=== PATIENT | female | born 1935 | race Caucasian/White ===

== ENCOUNTER → 2017-03-18 | Outpatient (CLI) | payer BC ==
[~2017-03-18] MED LIST: ALBU1AER9 INH; ASCO10003 PO; CALCTAB5 PO; CODCAP4 PO; LEVO100T7 PO; PRD/1 PO
[2017-03-18 11:03] LABS: BASO % 0.5 %; BASO ABS # 0.04 K/uL (0-0.2); COMPLETE YES; EOS % 2.3 %; HEMATOCRIT 45.7 % (37-47); IG% 0.2 %; LYMPH ABS # 2.14 K/uL (1.2-3.4); MEAN CELL VOLUME 93.6 fL (80-100); MEAN CORPUSCULAR HEMOGLOBIN 30.3 pg (25-34); MEAN CORPUSCULAR HGB CONC 32.4 g/dl (32-36); MEAN PLATELET VOLUME 11.8 fL (7.4-10.4); PLATELET COUNT 311 K/uL (130-400); RED BLOOD COUNT 4.88 M/uL (4.2-5.4); WHITE BLOOD COUNT 8.55 K/uL (4.8-10.8)
[2017-03-18 11:22] LABS: ESTIMATED AVERAGE GLUCOSE 117 mg/dl; HA1C FLAG Normal (Normal)
[2017-03-18 11:27] LABS: C-REACTIVE PROTEIN 0.33 mg/dl (0-0.29); CHOLESTEROL/HDL RATIO 2.7; THYROID STIMULATING HORMONE 0.786 uIu/ml (0.300-4.500)
--- NOTE | 2017-03-24 11:36 | CODING QUERY MEDICAL NECESSITY ---
SUPPORTING DIAGNOSIS NEEDED Dr. Vines, A supporting diagnosis is required for the test/procedure performed on this patient in order for us to be reimbursed by the patient's insurance. Please provide a supporting diagnosis for the following test/procedure listed below next to the test name along with your signature. *If there is no additional diagnosis for this patient that would support the following test/procedure please document that below next to the test/procedure. Test(s)/Procedure(s) that require a supporting diagnosis: * [id number] GLYCATED HEMOGLOBIN DIAGNOSIS: DATE OF SERVICE: 03/18/17 Provider Signature: Date: Thank you [facility] Information Management Once completed, please kindly fax back to [phone] For questions please call [phone]
== END | disposition home or self-care (01) ==
LOC: C.LABBC 08:34
PROVIDERS: ATTEND Internal Medicine
DX: R73.03 Prediabetes (principal); D72.829 Elevated white blood cell count, unspecified; M35.3 Polymyalgia rheumatica; E03.9 Hypothyroidism, unspecified; E55.9 Vitamin D deficiency, unspecified

== ENCOUNTER → 2017-05-13 | Outpatient (CLI) | payer BC ==
[~2017-05-13] MED LIST changes: +CODCAP PO; -CODCAP4 PO
== END | disposition home or self-care (01) ==
LOC: C.LABBC 09:14
PROVIDERS: ATTEND Physician Assistant
DX: M25.50 Pain in unspecified joint (principal)

== ENCOUNTER → 2017-07-21 | Outpatient (CLI) | payer BC ==
--- NOTE | 2017-07-21 16:08 | MAMMOGRAPHY REPORT ---
BILATERAL DIGITAL SCREENING MAMMOGRAM WITH CAD: 07/21/2017 CLINICAL HISTORY: Routine screening. Patient has no complaints. TECHNIQUE: Bilateral CC and MLO views were obtained. Current study was also evaluated with a Compute r Aided Detection (CAD) system. COMPARISON: Comparison is made to exams dated: 07/17/2016 mammogram, 07/14/2015 mammogram, 07/13/2014 m ammogram, 07/12/2013 mammogram, 07/09/2012 mammogram, and 07/12/2011 mammogram - [facility] er. BREAST COMPOSITION: The tissue of both breasts is heterogeneously dense, which may obscure small mas ses. FINDINGS: There are minimal vascular calcifications and scattered benign-appearing rim and round calc ifications in the breasts. No suspicious mass, architectural distortion or cluster of suspicious aminta rocalcifications is seen. IMPRESSION: ACR BI-RADS CATEGORY 1: NEGATIVE There is no mammographic evidence of malignancy. A 1 year screening mammogram is recommended. The pa tient will receive written notification of the results. Approximately 10% of breast cancers are not detected with mammography. A negative mammographic report should not delay biopsy if a clinically suggestive mass is present. Corazon Mata M.D. ay/:07/21/2017 14:42:05 Hand Weaver: Yazmin COLLADO(R)(Wilfredo)(BD), [facility] letter sent: Normal 1/2 BI-RADS Code: ACR BI-RADS Category 1: Negative
== END | disposition home or self-care (01) ==
LOC: C.MAMM 14:07
PROVIDERS: ATTEND Internal Medicine
DX: Z12.31 Encounter for screening mammogram for malignant neoplasm of breast (principal)

== ENCOUNTER → 2017-09-01 | Outpatient (CLI) | payer BC ==
[~2017-09-01] MED LIST changes: -CODCAP PO; +CODCAP4 PO
[2017-09-01 13:51] LABS: ESTIMATED AVERAGE GLUCOSE 114 mg/dl; HA1C FLAG Normal (Normal)
[2017-09-01 14:37] LABS: ALT/SGPT 18 U/L (12-78); AST/SGOT 16 U/L (15-37); BLOOD UREA NITROGEN 20 mg/dl (7-18); BUN/CREATININE RATIO 17.6 (10-20); C-REACTIVE PROTEIN 0.36 mg/dl (0-0.29); CALCIUM 9.1 mg/dl (8.5-10.1); CARBON DIOXIDE 30 mmol/L (21-32); CHLORIDE 106 mmol/L (98-107); CHOLESTEROL 194 mg/dl (0-200); CREATININE 1.13 mg/dl (0.60-1.20); GLUCOSE 101 mg/dl (70-99); POTASSIUM 3.9 mmol/L (3.5-5.1); SODIUM 141 mmol/L (136-145); TRIGLYCERIDES 102 mg/dl (0-150); VERY LOW DENSITY LIPOPROT CALC 20 mg/dl
[2017-09-01 14:50] LABS: CHOLESTEROL/HDL RATIO 2.6; HDL CHOLESTEROL 75 mg/dl; LDL CHOLESTEROL CALCULATED 99 mg/dl
== END | disposition home or self-care (01) ==
LOC: C.LABBC 09:26
PROVIDERS: ATTEND Internal Medicine
DX: R73.03 Prediabetes (principal); E03.9 Hypothyroidism, unspecified; M35.3 Polymyalgia rheumatica

== ENCOUNTER → 2017-10-21 | Outpatient (CLI) | payer BC ==
[2017-10-21 13:50] LABS: BLOOD UREA NITROGEN 25 mg/dl (7-18); CREATININE 1.19 mg/dl (0.60-1.20)
== END | disposition home or self-care (01) ==
LOC: C.LABBC 11:18
PROVIDERS: ATTEND Psychiatry & Neurology Neurology
DX: R73.03 Prediabetes (principal); N28.9 Disorder of kidney and ureter, unspecified

== ENCOUNTER → 2017-11-07 | Outpatient (CLI) | payer BC ==
[~2017-11-07] MED LIST changes: +ASPI81TA28 PO; +GADAVIST IV PRN; +LISI-729 PO; +SULF800T23 PO
--- NOTE | 2017-11-07 10:51 | DIAGNOSTIC IMAGING REPORT ---
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 Tinnitus. TECHNIQUE: Multiaxial MRI acquisition with multi planar postcontrast enhanced images of the internal auditory canals and brain COMPARISON STUDY: 02/18/2014 FINDINGS: Diffusion-weighted images are considered negative for an acute ischemic event. Sagittal images demonstrate low-lying cerebellar tonsils although well-defined acute malformation is not felt to be present. Multiple foci of increased signal within the periventricular deep white matter regions consistent with chronic small vessel change of aging. Slight ventricular prominence combined with cerebral atrophy with all findings related to the ventricular system presumably compensatory The internal auditory canals are identical as compared to the prior study. 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 The AICA loop is unchanged within the right internal auditory canal. No abnormal postcontrast enhancement of the brain or internal auditory canal structures. Signal characteristics of the 7th and 8th nerves remain unremarkable. IMPRESSION: 1. Identical study compared to the prior exam. 2. Vascular loop interposition,AICA, within the right internal auditory canal as discussed above. This is unchanged from the prior exam. 3. No abnormal postcontrast enhancement of the 7th or 8th nerves. 4. Low-lying cerebellar tonsils. Mild cerebral atrophy. Mild chronic small vessel change all identical to the prior exam. 5. No new or interval process compared to the prior study. The above report was generated using voice recognition software. It may contain grammatical, syntax or spelling errors. Electronically signed by: Arnie Zimmerman M.D. 11/07/2017 10:49 AM Dictated Date/Time: 11/07/2017 10:40 AM
== END | disposition home or self-care (01) ==
LOC: C.MRIBC 08:40
PROVIDERS: ATTEND Psychiatry & Neurology Neurology
DX: H93.19 Tinnitus, unspecified ear (principal); G51.0 Bell's palsy

== ENCOUNTER → 2017-12-23 | Outpatient (CLI) | payer BC ==
[~2017-12-23] MED LIST changes: -ASPI81TA28 PO; -GADAVIST IV PRN; -LISI-729 PO; -SULF800T23 PO
[2017-12-23 15:54] LABS: BLOOD UREA NITROGEN 24 mg/dl (7-18); CALCIUM 9.7 mg/dl (8.5-10.1); CARBON DIOXIDE 27 mmol/L (21-32); CREATININE 1.19 mg/dl (0.60-1.20); GLUCOSE 99 mg/dl (70-99); POTASSIUM 3.9 mmol/L (3.5-5.1); SODIUM 139 mmol/L (136-145)
== END | disposition home or self-care (01) ==
LOC: C.LABBC 11:09
PROVIDERS: ATTEND Internal Medicine
DX: E03.9 Hypothyroidism, unspecified (principal); I10 Essential (primary) hypertension

== ENCOUNTER → 2018-03-04 | Outpatient (CLI) | payer BC ==
[2018-03-04 11:13] LABS: BASO % 0.6 %; BASO ABS # 0.04 K/uL (0-0.2); EOS ABS # 0.28 K/uL (0-0.5); HEMATOCRIT 42.8 % (37-47); HEMOGLOBIN 13.7 g/dL (12.0-16.0); IG# 0.01 K/uL (0.00-0.02); LYMPH % 22.2 %; LYMPH ABS # 1.57 K/uL (1.2-3.4); MEAN CELL VOLUME 93.7 fL (80-100); MEAN PLATELET VOLUME 11.2 fL (7.4-10.4); MONO % 9.6 %; MONO ABS # 0.68 K/uL (0.11-0.59); NEUT % 63.5 %; NEUT ABS # 4.48 K/uL (1.4-6.5); PLATELET COUNT 315 K/uL (130-400); RED CELL DISTRIBUTION WIDTH CV 14.9 % (11.5-14.5); RED CELL DISTRIBUTION WIDTH SD 50.5 fL (36.4-46.3); WHITE BLOOD COUNT 7.06 K/uL (4.8-10.8)
[2018-03-04 11:27] LABS: BLOOD UREA NITROGEN 22 mg/dl (7-18); CARBON DIOXIDE 30 mmol/L (21-32); CREATININE 1.29 mg/dl (0.60-1.20); GLUCOSE 96 mg/dl (70-99); POTASSIUM 4.2 mmol/L (3.5-5.1); SODIUM 139 mmol/L (136-145)
[2018-03-04 11:37] LABS: CHOLESTEROL 190 mg/dl (0-200); LDL CHOLESTEROL CALCULATED 107 mg/dl
== END | disposition home or self-care (01) ==
LOC: C.LABBC 08:32
PROVIDERS: ATTEND Internal Medicine
DX: E03.9 Hypothyroidism, unspecified (principal); D72.829 Elevated white blood cell count, unspecified; M35.3 Polymyalgia rheumatica; N28.9 Disorder of kidney and ureter, unspecified

== ENCOUNTER → 2018-06-18 | Outpatient (CLI) | payer BC ==
[~2018-06-18] MED LIST changes: +ASPI81TA28 PO; +LISI-729 PO
[2018-06-18 13:38] LABS: BLOOD UREA NITROGEN 29 mg/dl (7-18); CALCIUM 9.2 mg/dl (8.5-10.1); CARBON DIOXIDE 27 mmol/L (21-32); CREATININE 1.26 mg/dl (0.60-1.20); GLUCOSE 93 mg/dl (70-99); POTASSIUM 3.9 mmol/L (3.5-5.1); SODIUM 139 mmol/L (136-145)
== END | disposition home or self-care (01) ==
LOC: C.LABBC 09:29
PROVIDERS: ATTEND Internal Medicine
DX: M35.3 Polymyalgia rheumatica (principal)

== ENCOUNTER 2022-02-05 14:45 | Inpatient (IN) ==
[2022-02-05] MEDS ORDERED: ONDANSETRON INJ 2 MG/ML 2 ML VIAL IV STA (15:07)
[2022-02-05] MEDS ORDERED: ACETAMINOPHEN 1000 MG/100 ML IV IV STA (15:07)
[2022-02-05] MEDS ORDERED: DIPHTHERIA/TETANUS/PERTUSSIS 0.5 ML SYR/VIAL IM ONE (15:07)
[2022-02-05] MEDS ORDERED: SODIUM CHLORIDE 0.9% 500 ML IV SCH (15:15)
[2022-02-05] MEDS ORDERED: LIDO/EPINEPHRINE/SOD BICARB 20 ML VIAL INFIL ONE (15:17)
[2022-02-05 15:23] LABS: Basophils # (auto) 0.04 K/uL (0-0.2); Basophils % (auto) 0.2 %; Eosinophils # (auto) 0.06 K/uL (0-0.5); Eosinophils % (auto) 0.3 %; Hematocrit (blood only) 39.7 % (37-47); Hemoglobin 12.9 g/dL (12.0-16.0); Immature Granulocytes # (auto) 0.16 K/uL (0.00-0.02); Immature Granulocytes % (auto) 0.9 %; Lymphocytes % (auto) 5.1 %; Mean Corpuscular Hemoglobin 30.1 pg (25-34); Mean Corpuscular Hgb Conc 32.5 g/dL (32-36); Mean Corpuscular Volume 92.8 fL (80-100); Mean Platelet Volume 10.9 fL (7.4-10.4); Monocytes # (auto) 1.26 K/uL (0.11-0.59); Monocytes % (auto) 7.2 %; Neutrophils # (auto) 15.14 K/uL (1.4-6.5); Neutrophils % (auto) 86.3 %; Platelet Count 372 K/uL (130-400); RDW Coefficient of Variation 14.6 % (11.5-14.5); RDW Standard Deviation 49.4 fL (36.4-46.3); Red Blood Count 4.28 M/uL (4.2-5.4); White Blood Count 17.56 K/uL (4.8-10.8)
--- NOTE | 2022-02-05 15:24 | Emergency Department Note ---
Impression & Plan Fall, Laceration of scalp, Acute head trauma, Closed fracture of right elbow, Closed pelvic fracture, Acute UTI ED Provider Note NAME: CHASE GRIJALVA AGE: 86 SEX: F : 1935 ARRIVES VIA: Ambulance INFORMANT: [Patient][nurseing, ems] ED PROVIDER(S): [Rocky López MD] CHIEF COMPLAINT: Fall HISTORY OF PRESENT ILLNESS: Patient is an 86-year-old female who was having a normal day today. She has been in baseline health. She was apparently walking and, was then suddenly found by her on the ground. She had fallen. She had a laceration to her right scalp, some right elbow pain, some right hip pain. She was brought for evaluation. The patient is amnestic of what exactly happened. Patient denies any real headache or neck pain. No chest pain or shortness of breath. No abdominal pain. She complains of some moderate right elbow and right hip discomfort. She feels worse in the elbow and hip if she tries to move. The patient is uncertain of her last tetanus booster, she thinks it has been sometime though. The patient does not take any blood thinning agents other than some aspirin. She has no history of seizures. REVIEW OF SYSTEMS: See HPI for pertinent positives and negatives. A total of ten systems were rev iewed and were otherwise negative. PMHx/PSHx: See Below SOCIAL HISTORY: See Below. PHYSICAL EXAM: GENERAL: Patient is in no acute distress. HEENT: There appears to be a laceration to the right parietal scalp although, there is dried, matted hair covering the wound and it at this point cannot be visualized. There is no obvious facial trauma. Mucous membranes appear moist. Once the area was cleansed, there was a 2 mm laceration to the right parietal scalp with a surrounding abrasion. There was some minimal oozing of blood. NECK: No stridor, no adenopathy, stiff collar in place, trachea is midline. LUNGS: Clear to auscultation bilaterally, no wheeze, no rhonchi, breath sounds equal. Chest: Nontender ribs and chest wall. HEART: Without murmurs gallops or rubs, regular rate and rhythm. ABDOMEN: Soft, nontender, bowel sounds positive, no hernias, no peritonitis. EXTREMITIES: No cyanosis. The patient does have pain to palpate the right lateral hip and to move the right hip, there is no gross deformity to the right lower extremity. The right knee and right ankle are nontender, the left lower extremity is nontender. The patient has swelling around the area of the right elbow. It is quite painful to palpate or move the elbow. There is a strong distal right radial pulse and her radial ulnar and median nerve are intact distally on the right. The shoulder on the right is nontender. NEUROLOGIC: Oriented x 3, no acute motor or sensory deficits, no focal weakness. SKIN: No rash, no jaundice, no diaphoresis. Pelvis: Stable with rock. DIFFERENTIAL DIAGNOSIS: Infection, TIA, dehydration, metabolic abnormality, hypo/hyperglycemia, electrolyte disturbance, anemia, hypoxia, cardiac sources, intracerebral event, stroke, TIA, dysrhythmia, seizure, intracranial bleeding, skull fracture, cervical spine fracture, pelvis or hip fracture, as well as other pathologies. EMERGENCY DEPARTMENT COURSE/PROCEDURES: ECG: Indication was fall. The ECG shows a normal sinus rhythm with significant baseline artifact. The rate is 67. There is LVH present. There is no obvious ST elevation, no PVCs. The QTc is 448. Continuous Cardiac Monitoring: An order was placed for continuous cardiac monitoring. The monitor shows a rate of 72 with normal sinus rhythm. Laceration repair: This procedure was performed by me. The wound was prepped and draped in sterile fashion. The area was anesthetized with lidocaine and epinephrine. Using saline it was cleansed thoroughly. No foreign debris was noted. The wound was visualized and explored to its deepest regions. There was no nervous, deep structure, or tendon involvement. Using sterile technique the wound was closed. There were no complications. The area was then dressed. The patient tolerated the procedure well. Number of miranda: 2 Splint Care: After the ortho glass splint was placed by the field professional, I examined the splint and confirmed proper application/placement/position. Neurovascular status was intact both proximal and distal to the splinted area. Critical Care Note: I have personally spent 52 minutes of critical care time in the direct management of this patient. This includes bedside care, interpretation of diagnostic studies, and testing, discussion with consultants, patient, and family members, and other required patient management activities. This 52 minutes is in excess of all separately billable procedures. MEDICAL DECISION MAKING: There is a moderate leukocytosis which would be consistent with infection or possibly the stress of her fall. There is a normal hemoglobin and platelet count. No coagulopathy. There is a mild elevation to the creatinine, no electrolyte abnormality that requires emergent correction. No concerning liver enzyme elevation. The patient appears to be in a euthyroid state. ECG shows a normal sinus rhythm, no obvious acute ischemia. Cardiac enzyme testing x1 is not consistent with acute cardiac injury. Urinalysis is consistent with infection. Covid testing is negative. Brain CT shows no acute bleed or mass- effect, no skull fracture. C-spine CT shows no acute fracture. Right elbow film shows an olecranon fracture. Right hip and pelvis films show a fracture of the right superior and inferior pubic ramus. CT with IV contrast of the pelvis shows the rami fractures, no extravasation of contrast noted. No right hip fracture seen. The patient's right scalp laceration was cleansed. The laceration was stapled closed. No further bleeding. The patient was placed in a right elbow posterior splint to stabilize the fracture. I did speak with orthopedics. The patient is being hospitalized. They will see the patient in the morning and talk about how to care for the elbow fracture and the pelvic fracture. The patient received IV Tylenol for pain, she was given IV Zofran for nausea. I did order for some IV labetalol to help control her blood pressure. She was given an Adacel booster IM. She was given IV ceftriaxone for her UTI. I spoke with the patient and her . I spoke with case management. The on-call hospitalist has been consulted. Past Med/Surg History Medical History Lawrence's palsy ~2003 Hx of basal cell carcinoma Hx of bronchiectasis follows with Pulmonary [facility] Hypothyroidism Osteoarthritis Polymyalgia rheumatica Pre-diabetes monitors Renal insufficiency PCP monitoring Solitary pulmonary nodule Surgical History Hx of skin graft S/P appendectomy S/P blepharoplasty Left S/P cataract surgery bilateral S/P cholecystectomy S/P colonoscopy S/P parathyroidectomy r/t hypercalcemia S/P right knee arthroscopy Family History Mother Myocardial infarction Hypertension Family/Other Thyroid disorder Brother Thyroid disorder Sister Thyroid disorder Other Diabetes Heart disease No family history of adverse response to anesthesia Denies family history of Ovarian cancer Prostate cancer Breast cancer Colorectal cancer Social History Smoking Status: Never smoker Second Hand Exposure: No; Hx Alcohol Use: Yes Alcohol type: wine Alcohol Intake Frequency Comment: SOCIALLY Hx Substance Use: No Preferred Language: Israeli Communication Ability: Effective Visual Impairment: No Limitations Hearing Ability: Normal Valve Inserter Required: No Beliefs That Will Affect Care: None marital status: Current Living Situation: Spouse current occupational status: retired How many Children do You have: 2 How many Children do You have Comment: 1 boy 1 girl Feels Safe at Home: Yes Childhood Exposure to Second-Hand Smoke: No during the past year weight has: remained stable Dental Care, Regularly: Yes Physical Activity Frequency: Daily Seatbelt Use: always Sunscreen Use: Yes Assistive Devices: Glasses Allergies Allergies Allergy/AdvReac Type Severity Reaction Status Date / Time fexofenadine AdvReac Unknown Diarrhea Verified 02/05/22 17:36 Home Meds Home Medications Medication Instructions Recorded Confirmed aspirin 81 mg tablet,delayed 81 mg PO QAM 07/01/18 02/05/22 release calcium carbonate 600 mg-vitamin 1 tab PO QAM tab 07/01/18 02/05/22 D3 20 mcg (800 unit) chewable tablet (Caltrate 600 plus D) cod liver oil 1 cap PO QAM 07/01/18 02/05/22 cholecalciferol (vitamin D3) 25 25 mcg PO QAM 07/16/21 02/05/22 mcg (1,000 unit) tablet (Vitamin D3) cranberry extract 500 mg tablet 500 mg PO QAM 07/16/21 02/05/22 cyanocobalamin (vitamin B-12) 1,000 mcg PO QAM 07/16/21 02/05/22 1,000 mcg tablet,extended release (Vitamin B-12 ER) magnesium 250 mg tablet 250 mg PO BID 07/16/21 02/05/22 turmeric root extract 500 mg 500 mg PO QAM 07/16/21 02/05/22 capsule vitamin B complex 1 tab PO [id number] 07/16/21 02/05/22 prednisone 1 mg tablet 2 mg PO DAILY tab 01/30/22 02/05/22 Previous Rx's Medication Instructions Recorded albuterol sulfate 90 mcg/actuation 1 - 2 puff INH Q6H PRN #8.5 gm 08/01/21 aerosol inhaler (ProAir HFA) levothyroxine 100 mcg tablet 100 mcg PO QAM #90 tab 12/04/21 (Synthroid) lisinopril 2.5 mg tablet 1.25 mg PO BID #90 tab 12/04/21 solifenacin 10 mg tablet (Vesicare) 10 mg PO DAILY #30 tab 12/11/21 Results & Data (ED) Vital Signs Vital Signs - 24 hr 02/05/22 14:55 02/05/22 15:00 02/05/22 15:08 Temperature 36.6 C Temperature Source Oral Pulse Rate 72 68 73 Pulse Rhythm Regular Pulse Strength Normal Respiratory Rate 20 19 22 Respiratory Effort / Characteristics Non-Labored Respiratory Depth Normal Respiratory Pattern Regular Blood Pressure 219/69 H Blood Pressure Mean 119 Blood Pressure Position Sitting Pulse Oximetry 95 94 Oxygen Delivery Method Room Air Room Air Sepsis Recent Fever Within 48 Hours No Sepsis New/Unexplained Change in Mental Status No Sepsis Action Taken by Nursing No Action Required 02/05/22 15:15 02/05/22 15:30 02/05/22 16:10 Temperature Temperature Source Pulse Rate 64 64 83 Pulse Rhythm Pulse Strength Respiratory Rate 20 19 22 Respiratory Effort / Characteristics Respiratory Depth Respiratory Pattern Blood Pressure Blood Pressure Mean Blood Pressure Position Pulse Oximetry 93 94 97 Oxygen Delivery Method Room Air Room Air Room Air Sepsis Recent Fever Within 48 Hours Sepsis New/Unexplained Change in Mental Status Sepsis Action Taken by Nursing 02/05/22 16:15 02/05/22 16:30 02/05/22 17:02 Temperature Temperature Source Pulse Rate 74 69 Pulse Rhythm Pulse Strength Respiratory Rate 20 24 Respiratory Effort / Characteristics Respiratory Depth Respiratory Pattern Blood Pressure Blood Pressure Mean Blood Pressure Position Pulse Oximetry 98 Oxygen Delivery Method Room Air Sepsis Recent Fever Within 48 Hours Sepsis New/Unexplained Change in Mental Status Sepsis Action Taken by Nursing 02/05/22 17:04 02/05/22 17:15 02/05/22 17:30 Temperature Temperature Source Pulse Rate 74 74 70 Pulse Rhythm Pulse Strength Respiratory Rate 21 17 16 Respiratory Effort / Characteristics Respiratory Depth Respiratory Pattern Blood Pressure 176/83 H Blood Pressure Mean 114 Blood Pressure Position Pulse Oximetry 97 Oxygen Delivery Method Room Air Sepsis Recent Fever Within 48 Hours Sepsis New/Unexplained Change in Mental Status Sepsis Action Taken by Nursing 02/05/22 17:45 02/05/22 18:00 02/05/22 18:15 Temperature Temperature Source Pulse Rate 70 71 70 Pulse Rhythm Pulse Strength Respiratory Rate 19 19 16 Respiratory Effort / Characteristics Respiratory Depth Respiratory Pattern Blood Pressure Blood Pressure Mean Blood Pressure Position Pulse Oximetry 98 Oxygen Delivery Method Room Air Sepsis Recent Fever Within 48 Hours Sepsis New/Unexplained Change in Mental Status Sepsis Action Taken by Nursing 02/05/22 18:30 02/05/22 18:46 Temperature Temperature Source Pulse Rate 77 72 Pulse Rhythm Pulse Strength Respiratory Rate 22 Respiratory Effort / Characteristics Respiratory Depth Respiratory Pattern Blood Pressure 183/59 H Blood Pressure Mean 100 Blood Pressure Position Pulse Oximetry Oxygen Delivery Method Sepsis Recent Fever Within 48 Hours Sepsis New/Unexplained Change in Mental Status Sepsis Action Taken by [facility] Medications Current Medication List: was personally reviewed by me Laboratory Data Attestation: I reviewed the patient's lab results. Result diagrams: 02/05/22 15:14 02/05/22 15:14 Lab Results 02/05/22 02/05/22 02/05/22 Range/Units 15:14 15:14 15:14 WBC 17.56 H (4.8-10.8) K/uL RBC 4.28 (4.2-5.4) M/uL Hgb 12.9 (12.0-16.0) g/dL Hct 39.7 (37-47) % MCV 92.8 (80-100) fL MCH 30.1 (25-34) pg MCHC 32.5 (32-36) g/dL RDW Std Deviation 49.4 H (36.4-46.3) fL RDW Coeff of Fawad 14.6 H (11.5-14.5) % Plt Count 372 (130-400) K/uL MPV 10.9 H (7.4-10.4) fL Immature Gran % (Auto) 0.9 % Neut % (Auto) 86.3 % Lymph % (Auto) 5.1 % [place] % (Auto) 7.2 % Eos % (Auto) 0.3 % Baso % (Auto) 0.2 % Neut # (Auto) 15.14 H (1.4-6.5) K/uL Lymph # (Auto) 0.90 L (1.2-3.4) K/uL [place] # (Auto) 1.26 H (0.11-0.59) K/uL Eos # (Auto) 0.06 (0-0.5) K/uL Baso # (Auto) 0.04 (0-0.2) K/uL Immature Gran # (Auto) 0.16 H (0.00-0.02) K/uL PT 10.5 (9.0-12.0) Seconds INR 1.0 (0.9-1.1) APTT 22.2 (21.0-31.0) Seconds PTT Ratio 0.8 Sodium 138 (136-145) mmol/L Potassium 4.0 (3.5-5.1) mmol/L Chloride 102 (98-107) mmol/L Carbon Dioxide 29 (21-32) mmol/L Anion Gap 7 (3-11) BUN 25 H (6-23) mg/dl Creatinine 1.42 H (0.6-1.2) mg/dl Est Cr Clr Drug Dosing 25.0 ml/min Est GFR ( Amer) 38.9 ml/min Est GFR (Non-Af Amer) 33.6 ml/min BUN/Creatinine Ratio 17.6 (10-20) Glucose 135 H (70-99(Fasting)) mg/dl Calcium 10.4 H (8.5-10.1) mg/dl Magnesium 2.2 (1.7-2.4) mg/dl Total Bilirubin 0.4 (0.2-1.0) mg/dl AST 22 (13-39) U/L ALT 15 (7-52) U/L Alkaline Phosphatase 61 (34-104) U/L Troponin I < 0.03 (0-0.04) ng/ml Total Protein 7.4 (6.0-8.3) gm/dl Albumin 4.3 (3.4-5.0) gm/dl Globulin 3.1 (2.5-4.0) gm/dl Albumin/Globulin Ratio 1.4 (0.9-2) TSH (0.300-4.500) uIu/ml Urine Color Urine Appearance (Clear) Urine pH (4.5-7.5) Ur Specific [place] (1.000-1.030) Urine Protein (Negative) Urine Glucose (UA) (Negative) Urine Ketones (Negative) Urine Blood (Negative) Urine Nitrite (Negative) Urine Bilirubin (Negative) Urine Urobilinogen (Negative) Ur Leukocyte Esterase (Negative) Urine WBC (Auto) (0-5) /hpf Urine RBC (Auto) (0-4) /hpf U Hyaline Cast (Auto) (0-5) /lpf U Epithel Cells (Auto) (0-5) /lpf Urine Bacteria (Auto) (Negative) SARS-CoV-2, RNA, NAAT (NEGATIVE) 02/05/22 02/05/22 02/05/22 Range/Units 15:14 17:32 Unknown WBC (4.8-10.8) K/uL RBC (4.2-5.4) M/uL Hgb (12.0-16.0) g/dL Hct (37-47) % MCV (80-100) fL MCH (25-34) pg MCHC (32-36) g/dL RDW Std Deviation (36.4-46.3) fL RDW Coeff of Fawad (11.5-14.5) % Plt Count (130-400) K/uL MPV (7.4-10.4) fL Immature Gran % (Auto) % Neut % (Auto) % Lymph % (Auto) % [place] % (Auto) % Eos % (Auto) % Baso % (Auto) % Neut # (Auto) (1.4-6.5) K/uL Lymph # (Auto) (1.2-3.4) K/uL [place] # (Auto) (0.11-0.59) K/uL Eos # (Auto) (0-0.5) K/uL Baso # (Auto) (0-0.2) K/uL Immature Gran # (Auto) (0.00-0.02) K/uL PT (9.0-12.0) Seconds INR (0.9-1.1) APTT (21.0-31.0) Seconds PTT Ratio Sodium (136-145) mmol/L Potassium (3.5-5.1) mmol/L Chloride (98-107) mmol/L Carbon Dioxide (21-32) mmol/L Anion Gap (3-11) BUN (6-23) mg/dl Creatinine (0.6-1.2) mg/dl Est Cr Clr Drug Dosing ml/min Est GFR ( Amer) ml/min Est GFR (Non-Af Amer) ml/min BUN/Creatinine Ratio (10-20) Glucose (70-99(Fasting)) mg/dl Calcium (8.5-10.1) mg/dl Magnesium (1.7-2.4) mg/dl Total Bilirubin (0.2-1.0) mg/dl AST (13-39) U/L ALT (7-52) U/L Alkaline Phosphatase (34-104) U/L Troponin I (0-0.04) ng/ml Total Protein (6.0-8.3) gm/dl Albumin (3.4-5.0) gm/dl Globulin (2.5-4.0) gm/dl Albumin/Globulin Ratio (0.9-2) TSH 1.478 (0.300-4.500) uIu/ml Urine Color Yellow Urine Appearance Cloudy A (Clear) Urine pH 7.5 (4.5-7.5) Ur Specific [place] 1.012 (1.000-1.030) Urine Protein Negative (Negative) Urine Glucose (UA) Negative (Negative) Urine Ketones Negative (Negative) Urine Blood Negative (Negative) Urine Nitrite Positive A (Negative) Urine Bilirubin Negative (Negative) Urine Urobilinogen Negative (Negative) Ur Leukocyte Esterase 2+ H (Negative) Urine WBC (Auto) >30 H (0-5) /hpf Urine RBC (Auto) 0-4 (0-4) /hpf U Hyaline Cast (Auto) 1-5 (0-5) /lpf U Epithel Cells (Auto) 0-5 (0-5) /lpf Urine Bacteria (Auto) 4+ H (Negative) SARS-CoV-2, RNA, NAAT NEGATIVE (NEGATIVE) Administered Medications Discontinued Medications Acetaminophen (Acetaminophen 1000 Mg/100 Ml Iv) 1,000 mg IV NOW STA Stop: 02/05/22 15:08 Last Admin: 02/05/22 15:29 Dose: 1,000 mg Documented by: [id number] Diphtheria/Pertussis/Tetanus Vacc (Diphtheria/Tetanus/Pertussis 0.5 Ml Syr/Vial) 0.5 ml IM .ONCE ONE Stop: 02/05/22 15:08 Last Admin: 02/05/22 15:30 Dose: 0.5 ml Documented by: [id number] Hydromorphone HCl (Hydromorphone Inj 0.5 Mg/0.5 Ml Syr) 0.5 mg IV NOW STA Stop: 02/05/22 18:52 Last Admin: 02/05/22 18:59 Dose: 0.5 mg Documented by: [id number] Sodium Chloride (Nss) 500 mls @ 999 mls/hr IV .Q31M LEROY Stop: 02/05/22 15:45 Last Infusion: 02/05/22 16:33 Dose: 0 mls/hr Documented by: [id number] Admin: 02/05/22 15:27 Dose: 999 mls/hr Documented by: [id number] Ceftriaxone Sodium (Rocephin) 1,000 mg in 50 mls @ 100 mls/hr IV NOW STA Stop: 02/05/22 17:50 Last Infusion: 02/05/22 19:41 Dose: 0 mls/hr Documented by: [id number] Admin: 02/05/22 19:01 Dose: 100 mls/hr Documented by: [id number] Ioversol (Optiray 320 100ml) 93 ml IV ONCE ONE Stop: 02/05/22 16:58 Last Admin: 02/05/22 16:58 Dose: 93 ml Documented by: [id number] Labetalol HCl (Labetalol Hcl Iv 5 Mg/Ml 20ml) 10 mg IV NOW STA Stop: 02/05/22 17:22 Last Admin: 02/05/22 18:56 Dose: Not Given Documented by: [id number] Lidocaine/Epinephrine (Lido/Epinephrine/Sod Bicarb 20 Ml Vial) 20 ml INFIL NOW ONE Stop: 02/05/22 15:18 Last Admin: 02/05/22 16:32 Dose: 20 ml Documented by: [id number] Ondansetron HCl (Ondansetron Inj 2 Mg/Ml 2 Ml Vial) 4 mg IV NOW STA Stop: 02/05/22 15:08 Last Admin: 02/05/22 15:27 Dose: 4 mg Documented by: [id number] Imaging Data Radiologist's Impression: Cervical Spine CT 02/05/22 15:[address] DOSE: 924.76 mGy.cm HISTORY: fall TECHNIQUE: Multiaxial CT images of the cervical spine were performed and reformatted in the sagittal and coronal plane without the use of contrast. A dose lowering technique was utilized adhering to the principles of ALARA. COMPARISON: None. FINDINGS: No fractures. No subluxation. Prevertebral soft tissues and the C1-C2 interval are intact. No pneumothorax. IMPRESSION: No fractures within the cervical spine. ACT 112: Negative or not required by law. Electronically signed by: Nader Sinha M.D. 02/05/2022 4:01 PM Elbow X-Ray 02/05/22 15:07 XR elbow RT min 3V routine CLINICAL HISTORY: fall, pain TECHNIQUE: 3 views of the right elbow were obtained. Comparison: None available at the time of this dictation. FINDINGS: There is an acute fracture of the olecranon. The fracture is mildly distracted. Joint spaces are well-preserved. Soft tissue swelling is seen about the elbow. IMPRESSION: Acute olecranon fracture with associated soft tissue swelling. ACT 112: Negative or not required by law. Electronically signed by: Dandre Peña M.D. 02/05/2022 4:[address] 02/05/22 15:07 CT head/brain wo con CLINICAL HISTORY: fall, lac Technique: Contiguous axial CT images of the head were acquired from the base of the skull to the vertex without intravenous contrast administration. Images were viewed in brain, subdural and bone windows. Automated dose lowering techniques and/or adjustment according to patient size were utilized for this exam. Comparison: None available at the time of this dictation. Findings: Areas of decreased attenuation are present in the periventricular and subcortical white matter bilaterally consistent with small vessel ischemic disease. Generalized cerebral atrophy with commensurate enlargement of the ventricles, sulci, and cisterns is also present. There is no acute intracranial hemorrhage or evidence of acute territorial infarction. No shift of the midline structures, mass effect, or extra-axial abnormalities are shown. Atheroscl erotic calcifications are present in the intracranial segments of the internal carotid arteries. Imaged portions of the paranasal sinuses and mastoid air cells are clear. The orbits appear normal. Soft tissue swelling is seen in the right calvarium. Impression: No acute intracranial hemorrhage or skull fractures. Scalp swelling is seen in the right calvarium. ACT 112: Negative or not required by law. Electronically signed by: Dandre Peña M.D. 02/05/2022 3:56 PM Hip/Pelvis X-Ray 02/05/22 15:07 XR hip RT 2V w pelvis CLINICAL HISTORY: fall, pain TECHNIQUE: 2 views of the right hip and single frontal view of the pelvis were obtained. Comparison: None available at the time of this dictation. FINDINGS: There is no evidence of an acute fracture. Degenerative changes are seen in the hip joint. No soft tissue abnormality is seen. IMPRESSION: No evidence of acute osseous injury. ACT 112: Negative or not required by law. Electronically signed by: Dandre Peña M.D. 02/05/2022 4:11 PM Chest X-Ray 02/05/22 15:08 XR chest 1V portable CLINICAL HISTORY: weakness TECHNIQUE: Single frontal radiograph of the chest was obtained. Comparison: Comparison is made to chest 2 views 07/23/2021 FINDINGS: No lines and tubes are seen. Cardiac silhouette is top normal. The lungs are clear. No evidence of pleural effusion or pneumothorax. IMPRESSION: No acute chest disease. ACT 112: Negative or not required by law. Electronically signed by: Dandre Peña M.D. 02/05/2022 4:[address] 02/05/22 16:16 CT pelvis w/IV con only CLINICAL HISTORY: hip and pelvic pain, poss fx TECHNIQUE: Helical axial images of the pelvis were obtained and displayed at 5 and 1 mm intervals. Automated dose lowering techniques and/or adjustment according to patient size were utilized for this exam. This exam was performed with intravenous contrast. COMPARISON: Comparison is made to CT abdomen pelvis 04/06/2014 FINDINGS: Bladder: Yanez catheter is seen. Reproductive organs: Unremarkable. Bowel: Diverticulosis is seen without evidence of diverticulitis. Lymph nodes Mesenteric: Unremarkable. Pelvic: Unremarkable. Peritoneum: Normal Vessels: Atherosclerotic calcifications are seen. Abdominal wall: Unremarkable. Bones: There is a comminuted fracture of the right pubic symphysis extending to the anterior superior pubic ramus, as well as a comminuted fracture of the right inferior pubic ramus. The acetabula are uninvolved. Sacroiliac joints are intact. Degenerative changes are seen in the spine and hip joints. IMPRESSION: Comminuted fractures of the right pubic symphysis and superior and inferior pubic ramus. ACT 112: Negative or not required by law. Electronically signed by: Dandre Peña M.D. 02/05/2022 5:38 PM Shoulder X-Ray 02/05/22 18:52 XR shoulder RT min 2V routine CLINICAL HISTORY: eval hardware and eval for frx TECHNIQUE: 2 views of the right shoulder were obtained. Comparison: Comparison is made to right shoulder radiographs 03/21/2031 FINDINGS: There is no evidence of an acute fracture. Degenerative changes are seen in the glenohumeral joint. The overlying soft tissues are unremarkable. The visualized portions of the lungs are clear. IMPRESSION: Degenerative changes without evidence of acute abnormality. ACT 112: Negative or not required by law. Electronically signed by: Dandre Peña M.D. 02/05/2022 7:29 PM Discharge Plan Visit Data Chief Complaint: Fall Stated Complaint: FALL, LAC TO HEAD, R ELBOW & HIP PAIN ED Provider: Rocky López Discharge Problem: Fall, Laceration of scalp, Acute head trauma, Closed fracture of right elbow, Closed pelvic fracture, Acute UTI Patient Disposition: Admitted As Inpatient Condition: Fair Forms Stand Alone Forms: [facility] Prescriptions Prescriptions: No Action aspirin 81 mg tablet,delayed release (DR/EC) 81 mg PO QAM RF: 0 calcium carbonate-vitamin D3 [Caltrate 600 plus D] 600 mg (1,500 mg)-800 unit tablet,chewable 1 tab PO QAM RF: 0 cod liver oil capsule 1 cap PO QAM RF: 0 levothyroxine [Synthroid] 100 mcg tablet 100 mcg PO QAM Qty: 90 RF: 3 lisinopril 2.5 mg tablet 1.25 mg PO BID Qty: 90 RF: 3 prednisone 1 mg tablet 2 mg PO DAILY RF: 0 solifenacin [Vesicare] 10 mg tablet 10 mg PO DAILY Qty: 30 RF: 2 albuterol sulfate [ProAir HFA] 90 mcg/actuation HFA aerosol inhaler 1 - 2 puff INH Q6H PRN (Reason: shortness of breath) Qty: 8.5 RF: 0 vitamin B complex Tablet 1 tab PO 3XWK RF: 0 magnesium 250 mg Tablet 250 mg PO BID RF: 0 cholecalciferol (vitamin D3) [Vitamin D3] 25 mcg (1,000 unit) Tablet 25 mcg PO QAM RF: 0 turmeric root extract 500 mg Capsule 500 mg PO QAM RF: 0 cranberry extract 500 mg Tablet 500 mg PO QAM RF: 0 cyanocobalamin (vitamin B-12) [Vitamin B-12] 1,000 mcg Tablet Extended Release 1,000 mcg PO QAM RF: 0 Referrals Referrals: Pro,Farhan Pierson MD [Primary Care Provider] -
[2022-02-05 15:40] LABS: Partial Thromboplastin Ratio 0.8; Partial Thromboplastin Time 22.2 Seconds (21.0-31.0); Prothrombin Time 10.5 Seconds (9.0-12.0)
[2022-02-05 15:55] LABS: Troponin I < 0.03 ng/ml (0-0.04)
--- NOTE | 2022-02-05 15:58 | CT Scan Report ---
CT head/brain wo con CLINICAL HISTORY: fall, [place] Technique: Contiguous axial CT images of the head were acquired from the base of the skull to the teddy olivia without intravenous contrast administration. Images were viewed in brain, subdural and bone [facility]. Automated dose lowering techniques and/or adjustment according to patient size were utilized for this exam. Comparison: None available at the time of this dictation. Findings: Areas of decreased attenuation are present in the periventricular and subcortical white matter bilate rally consistent with small vessel ischemic disease. Generalized cerebral atrophy with commensurate e nlargement of the ventricles, sulci, and cisterns is also present. There is no acute intracranial hem orrhage or evidence of acute territorial infarction. No shift of the midline structures, mass effect, or extra-axial abnormalities are shown. Atherosclerotic calcifications are present in the intracran ial segments of the internal carotid arteries. Imaged portions of the paranasal sinuses and mastoid air cells are clear. The orbits appear normal. Soft tissue swelling is seen in the right calvarium. Impression: No acute intracranial hemorrhage or skull fractures. Scalp swelling is seen in the right calvarium. ACT 112: Negative or not required by law. Electronically signed by: Dandre Peña M.D. 02/05/2022 3:56 PM
[2022-02-05 16:03] LABS: Alanine Aminotransferase 15 U/L (7-52); Albumin Globulin Ratio 1.4 (0.9-2); Albumin Level 4.3 gm/dl (3.4-5.0); Alkaline Phosphatase 61 U/L (34-104); Anion Gap 7 (3-11); Aspartate Aminotransferase 22 U/L (13-39); BUN Creatinine Ratio 17.6 (10-20); Bilirubin,Total 0.4 mg/dl (0.2-1.0); Blood Urea Nitrogen 25 mg/dl (6-23); Calcium 10.4 mg/dl (8.5-10.1); Carbon Dioxide 29 mmol/L (21-32); Chloride 102 mmol/L (98-107); Est GFR (African American) 38.9 ml/min; Est GFR (Non-African American) 33.6 ml/min; Globulin 3.1 gm/dl (2.5-4.0); Glucose 135 mg/dl (70-99(Fasting)); Magnesium 2.2 mg/dl (1.7-2.4); Sodium 138 mmol/L (136-145); Total Protein 7.4 gm/dl (6.0-8.3)
--- NOTE | 2022-02-05 16:03 | CT Scan Report ---
CERVICAL SPINE CT CT DOSE: 924.76 mGy.cm HISTORY: fall TECHNIQUE: Multiaxial CT images of the cervical spine were performed and reformatted in the sagittal and coronal plane without the use of contrast. A dose lowering technique was utilized adhering to th e principles of ALARA. COMPARISON: None. FINDINGS: No fractures. No subluxation. Prevertebral soft tissues and the C1-C2 interval are intact. No pneumothorax. IMPRESSION: No fractures within the cervical spine. ACT 112: Negative or not required by law. Electronically signed by: Nader Sinha M.D. 02/05/2022 4:01 PM
--- NOTE | 2022-02-05 16:12 | XRay Report ---
XR chest 1V portable CLINICAL HISTORY: weakness TECHNIQUE: Single frontal radiograph of the chest was obtained. Comparison: Comparison is made to chest 2 views 07/23/2021 FINDINGS: No lines and tubes are seen. Cardiac silhouette is top normal. The lungs are clear. No evidence of pl eural effusion or pneumothorax. IMPRESSION: No acute chest disease. ACT 112: Negative or not required by law. Electronically signed by: Dandre Peña M.D. 02/05/2022 4:10 PM
--- NOTE | 2022-02-05 16:13 | XRay Report ---
XR hip RT 2V w pelvis CLINICAL HISTORY: fall, pain TECHNIQUE: 2 views of the right hip and single frontal view of the pelvis were obtained. Comparison: None available at the time of this dictation. FINDINGS: There is no evidence of an acute fracture. Degenerative changes are seen in the hip joint. No soft t issue abnormality is seen. IMPRESSION: No evidence of acute osseous injury. ACT 112: Negative or not required by law. Electronically signed by: Dandre Peña M.D. 02/05/2022 4:11 PM
--- NOTE | 2022-02-05 16:14 | Electrocardiogram Report ---
Test Reason : Blood Pressure : / mmHG Vent. Rate : 067 BPM Atrial Rate : 067 BPM P-R Int : 182 ms QRS Dur : 100 ms QT Int : 424 ms P-R-T Axes : 082 -18 008 degrees QTc Int : 448 ms Poor data quality, interpretation may be adversely affected Normal sinus rhythm Minor Non-specific intra-ventricular conduction delay Voltage criteria for left ventricular hypertrophy Nonspecific ST abnormality Lateral leads Abnormal ECG When compared with ECG of 23-JUL-2021 14:40, No significant change was found Confirmed by Breezy Christianson ([id number]) on 02/05/2022 4:14:23 PM Referred By: REFERRED SELF Confirmed By:Breezy Christianson
--- NOTE | 2022-02-05 16:16 | XRay Report ---
XR elbow RT min 3V routine CLINICAL HISTORY: fall, pain TECHNIQUE: 3 views of the right elbow were obtained. Comparison: None available at the time of this dictation. FINDINGS: There is an acute fracture of the olecranon. The fracture is mildly distracted. Joint spaces are well -preserved. Soft tissue swelling is seen about the elbow. IMPRESSION: Acute olecranon fracture with associated soft tissue swelling. ACT 112: Negative or not required by law. Electronically signed by: Dandre Peña M.D. 02/05/2022 4:15 PM
[2022-02-05 16:53] LABS: Appearance Urine Cloudy (Clear); Bacteria Urine Automated 4+ (Negative); Bilirubin Urine Negative (Negative); Blood Urine Negative (Negative); Color Urine Yellow; Epithelial Cell Urine Auto 0-5 /lpf (0-5); Glucose Urine UA Negative (Negative); Ketones Urine Negative (Negative); Leukocyte Esterase Urine 2+ (Negative); Nitrite Urine Positive (Negative); Protein Urine Negative (Negative); RBC Urine Automated 0-4 /hpf (0-4); Specific Gravity Urine 1.012 (1.000-1.030); Urobilinogen Urine Negative (Negative); WBC Urine Automated >30 /hpf (0-5); pH Urine 7.5 (4.5-7.5)
[2022-02-05] MEDS ORDERED: OPTIRAY 320 100ml IV ONE (16:57)
[2022-02-05] MEDS ORDERED: LABETALOL HCL IV 5 MG/ML 20ML IV STA (17:21)
[2022-02-05] MEDS ORDERED: cefTRIAXone SODIUM 1,000 MG/50 ML BAG IV STA (17:21)
--- NOTE | 2022-02-05 17:40 | CT Scan Report ---
CT pelvis w/IV con only CLINICAL HISTORY: hip and pelvic pain, poss fx TECHNIQUE: Helical axial images of the pelvis were obtained and displayed at 5 and 1 mm intervals. Au tomated dose lowering techniques and/or adjustment according to patient size were utilized for this e xam. This exam was performed with intravenous contrast. COMPARISON: Comparison is made to CT abdomen pelvis 04/06/2014 FINDINGS: Bladder: Yanez catheter is seen. Reproductive organs: Unremarkable. Bowel: Diverticulosis is seen without evidence of diverticulitis. Lymph nodes Mesenteric: Unremarkable. Pelvic: Unremarkable. Peritoneum: Normal Vessels: Atherosclerotic calcifications are seen. Abdominal wall: Unremarkable. Bones: There is a comminuted fracture of the right pubic symphysis extending to the anterior superior pubic ramus, as well as a comminuted fracture of the right inferior pubic ramus. The acetabula are u ninvolved. Sacroiliac joints are intact. Degenerative changes are seen in the spine and hip joints. IMPRESSION: Comminuted fractures of the right pubic symphysis and superior and inferior pubic ramus. ACT 112: Negative or not required by law. Electronically signed by: Dandre Peña M.D. 02/05/2022 5:38 PM
[2022-02-05] MEDS ORDERED: HYDROmorphone INJ 0.5 MG/0.5 ML SYR IV STA (18:51)
--- NOTE | 2022-02-05 19:18 | History & Physical Report ---
Date of Service February 05, 2022 Assessment & Plan (1) Pelvis fracture: Plan: comminuted fracture of the right pubic symphysis extending to the anterior superior pubic ramus, as well as a comminuted fracture of the right inferior pubic ramus. The acetabula are uninvolved - Yanez placed- continue management to gravity - Bedrest- maintain - No free fluid in pelvis noted on CT scan - follow HGB/HCT - Pain control tiered- Tylenol, oxy 5 prn, hydromorphone prn - Orthopaedics consulted - appreciate assistance - NPO after midnight (2) Olecranon fracture: Plan: Splinted by EMD - sensation and movment of fingers and hand intact - As above (3) UTI (urinary tract infection): Plan: Continue Rocephin 1 GM IV q24 hour - await culture - bladder scan PRN (4) Laceration of head: Plan: From fall with head strike to driveway - Initial head non-con head negative - Neurologically intact- amnestic to event leading up to fall - Nuero exams q4 hour- any change obtain non-con head CT scan evaluate for DASH - Wound primary closure with miranda by EMD - Tetanus given (5) Polymyalgia rheumatica: Plan: Chronic- has been on steroids (prednisone)- since appears June 23 - Patient on low dose 2mg daily currently- continue - evaluate for need for stress dosing for operative theatre when evaluated (6) Renal insufficiency: Plan: CKD III- CRCL 33- chronic - renally dose medications when needed - avoid further nephrotoxic medications - follow output - stable- baseline [employer] 1.24-1.4 (7) Hypothyroidism: Plan: Continue Synthroid - TSH normal (8) Osteoarthritis of shoulders, bilateral: Plan: As above (9) Pre-diabetes: Plan: BG checks q6 hour while NPO - will add coverage if > 180 - hypoglycemic protocol in place - follow postoperative or with steroid increase (10) Hypercalcemia: Plan: Mild 10.4 no symptoms - will start on Normosol 80ml/hr - hold calcium supplementation - check iCA in the morning (11) Asthma: Plan: Continue Albuterol 2 puffs q4 prn (12) Osteoporosis: Plan: Continue vitamin D - Hold calcium - check iCA in am (13) Vitamin D deficiency: Plan: As above (14) Nocturia: Plan: Hold her Vesicare- Yanez in place with good urine output (15) S/P rotator cuff repair: Plan: Done in 08/23 - no acute fracture of shoulder noted on 2 view - Follows with Dr. Temple History of Present Illness Primary Care Provider: Farhan Vines MD 86 YOF with past medical history of: PMR (on prednisone since JUN- currently 2mg/day), Hypothyroidism, pre-diabetes, Osteopetrosis, asthma, bronchiectasis, neuropathy, right shoulder right rotator cuff repair (08/23), Lawrence's palsy, solitary pulmonary nodule. Patient comes to the EMD today s/p fall in her driveway. The patient reports that she was walking outside and coming back in to the house and woke up with head pain, right arm pain, and right hip and pelvic pain. She remembers her being with her- she can not remember how she fell and is amnestic to event leading up to fall. Her is also unsure how she fell as he was in the house. He called 911. He states that she woke up a few minutes as he got outside to her and she remained awake for the rest of the time until EMS came to get her as well as to the EMD and is alert and oriented now. In the EMD the patient was noted to have head laceration that was primarily with miranda, she had her C-spine cleared radiographically with cervical c-spine and clinically, elbow X-ray, head CT, hip/pelvis X-ray, chest Xray, and pelvis CT. Patient was noted to have right olecranon fracture, which is now splinted, and her pelvic CT revealed comminuted fractures of the right pubic symphysis and superior and inferior pubic ramus. Orthopaedics was consulted and will evaluate patient in the morning. The patient previously had her right rotator cuff done by Dr. Temple. Dr. Tay director of acquisitions orthopaedics is cross covering. The patient had a Yanez catheter placed as well as UA that did reveal 4+ bacteria and was started on Rocephin. She was also given Tetanus vaccination with DPT. Hospitalist was consulted for admission. Overall the patient is moderatly comfortable with most of her pain in her right arm and right hip. She feels the stretcher is causing the majority of her pain. Will obtain 2V of her right shoulder as she is having pain with movement cephalad and across her body. Will keep NPO after midnight. Continue Rocephin while her Urine culture is pending. Place on telemetry overnight to evaluate for any dysrhythmia that may have caused her episodes. Type and cross. Allergies Allergy/AdvReac Type Severity Reaction Status Date / Time fexofenadine AdvReac Unknown Diarrhea Verified 02/05/22 17:36 Home Medications Medication Instructions Recorded Confirmed Type aspirin 81 mg tablet,delayed 81 mg PO QAM 07/01/18 02/05/22 History release calcium carbonate 600 mg-vitamin 1 tab PO QAM tab 07/01/18 02/05/22 History D3 20 mcg (800 unit) chewable tablet (Caltrate 600 plus D) cod liver oil 1 cap PO QAM 07/01/18 02/05/22 History cholecalciferol (vitamin D3) 25 25 mcg PO QAM 07/16/21 02/05/22 History mcg (1,000 unit) tablet (Vitamin D3) cranberry extract 500 mg tablet 500 mg PO QAM 07/16/21 02/05/22 History cyanocobalamin (vitamin B-12) 1,000 mcg PO QAM 07/16/21 02/05/22 History 1,000 mcg tablet,extended release (Vitamin B-12 ER) magnesium 250 mg tablet 250 mg PO BID 07/16/21 02/05/22 History turmeric root extract 500 mg 500 mg PO QAM 07/16/21 02/05/22 History capsule vitamin B complex 1 tab PO 3XWK 07/16/21 02/05/22 History albuterol sulfate 90 mcg/actuation 1 - 2 puff INH Q6H PRN #8.5 gm 08/01/21 02/05/22 Rx aerosol inhaler (ProAir HFA) levothyroxine 100 mcg tablet 100 mcg PO QAM #90 tab 12/04/21 02/05/22 Rx (Synthroid) lisinopril 2.5 mg tablet 1.25 mg PO BID #90 tab 12/04/21 02/05/22 Rx solifenacin 10 mg tablet (Vesicare) 10 mg PO DAILY #30 tab 12/11/21 02/05/22 Rx prednisone 1 mg tablet 2 mg PO DAILY tab 01/30/22 02/05/22 History Past Med/Surg History Medical History Lawrence's palsy ~2003 Hx of basal cell carcinoma Hx of bronchiectasis follows with Pulmonary [facility] Hypothyroidism Osteoarthritis Polymyalgia rheumatica Pre-diabetes monitors Renal insufficiency PCP monitoring Solitary pulmonary nodule Surgical History Hx of skin graft S/P appendectomy S/P blepharoplasty Left S/P cataract surgery bilateral S/P cholecystectomy S/P colonoscopy S/P parathyroidectomy r/t hypercalcemia S/P right knee arthroscopy Family History Mother Myocardial infarction Hypertension Family/Other Thyroid disorder Brother Thyroid disorder Sister Thyroid disorder Other Diabetes Heart disease No family history of adverse response to anesthesia Denies family history of Ovarian cancer Prostate cancer Breast cancer Colorectal cancer Social History Smoking Status: Former smoker Second Hand Exposure: No; Hx Alcohol Use: Yes Alcohol type: wine Alcohol Intake Frequency Comment: SOCIALLY Hx Substance Use: No Preferred Language: [place] Communication Ability: Effective Visual Impairment: No Limitations Hearing Ability: Normal Home Care Music Therapist Required: No Beliefs That Will Affect Care: None marital status: Current Living Situation: Spouse current occupational status: retired How many Children do You have: 2 How many Children do You have Comment: 1 boy 1 girl Other Information That Helps Us Care for You: No Feels Safe at Home: Yes Safety Concerns: Feels Safe At This Time Childhood Exposure to Second-Hand Smoke: No during the past year weight has: remained stable Dental Care, Regularly: Yes Physical Activity Frequency: Daily Seatbelt Use: always Sunscreen Use: Yes Assistive Devices: None Review of Systems Review of Systems: REVIEW OF SYSTEMS: Constitutional: No fever, sweats or chills Eyes: No diplopia, no worsening or blurred vision ENT: normal hearing, no trouble swallowing Respiratory: No cough, sputum, dyspnea at rest or on exertion Cardiovascular: No chest pain, tightness or palpitations Abdomen: (+) urinary frequency at baseline, No pain, nausea, vomiting, diarrhea or constipation Musculoskeletal: (+) right shoulder, arm, hip and pelvic pain, right arm splinted, chronic joint pain Neurologic: No weakness, numbness/tingling, or balance problems Psychiatric: No anxiety or depression Skin: No rash or itch Physical Exam Physical Exam: PHYSICAL EXAM: General: awake, alert, no apparent distress, blood noted to hair Head: right sided head laceration stapled with edges approximated, no other hematoma or tender area to head or scalp ENT: PERRLA, EOMI, no pharyngeal exudate, mucous membranes dry Neuro: AAO x 3, speech clear and appropriate, strength intact bilaterally 5/5, sensation intact and equal all extremities and dermatomes, no pronator drift Chest: equal rise and fall of the chest, no accessory muscle use, no heaves or thrills, Clear to auscultation, on room air, Cardiac: Regular rate and rhythm, telemetry reviewed- NSR, skin warm dry, cap refill <3 seconds, peripheral pulses +2 no JVD, no murmur, no edema GI: NABS x 4 quadrants, soft, nontender to palpation, no rebound, guarding or tenderness : Yanez to gravity draining light yellow urine MSK: Sensation and strength equal to bilateral upper and lower extremities, cervical spine without pinpoint tenderness full extension and flexion as well as lateral movement without pain, pelvis stable, hips without pinpoint tenderness or hematoma, lower extremities same, right arm is splinted to above the elbow- NV/CV intact, right shoulder with pain moving upwards and across body, left shoulder and arm with full range of motion, no thoracic or lumbar spine tenderness Psych: Normal mood and affect Skin: scalp laceration as per HPI Results & Data Results & Data ([facility]) Vital Signs (Past 12 Hours) Vital Signs Temp Pulse Resp BP Pulse Ox 02/05/22 18:46 72 183/59 H 02/05/22 18:30 77 22 02/05/22 18:15 70 16 98 02/05/22 18:00 71 19 02/05/22 17:45 70 19 02/05/22 17:30 70 16 97 02/05/22 17:15 74 17 02/05/22 17:04 74 21 176/83 H 02/05/22 17:02 98 02/05/22 16:30 69 24 02/05/22 16:15 74 20 02/05/22 16:10 83 22 97 02/05/22 15:30 64 19 94 02/05/22 15:15 64 20 93 02/05/22 15:08 36.6 C 73 22 219/69 H 94 02/05/22 15:00 68 19 02/05/22 14:55 72 20 95 Laboratory Results Abnormal lab results 02/05/22 02/05/22 02/05/22 Range/Units 15:14 15:14 Unknown WBC 17.56 H (4.8-10.8) K/uL RDW Std Deviation 49.4 H (36.4-46.3) fL RDW Coeff of Fawad 14.6 H (11.5-14.5) % MPV 10.9 H (7.4-10.4) fL Neut # (Auto) 15.14 H (1.4-6.5) K/uL Lymph # (Auto) 0.90 L (1.2-3.4) K/uL [place] # (Auto) 1.26 H (0.11-0.59) K/uL Immature Gran # (Auto) 0.16 H (0.00-0.02) K/uL BUN 25 H (6-23) mg/dl Creatinine 1.42 H (0.6-1.2) mg/dl Glucose 135 H (70-99(Fasting)) mg/dl Calcium 10.4 H (8.5-10.1) mg/dl Urine Appearance Cloudy A (Clear) Urine Nitrite Positive A (Negative) Ur Leukocyte Esterase 2+ H (Negative) Urine WBC (Auto) >30 H (0-5) /hpf Urine Bacteria (Auto) 4+ H (Negative) Diagnostic Findings Cervical Spine CT 02/05/22 15:[address] DOSE: 924.76 mGy.cm HISTORY: fall TECHNIQUE: Multiaxial CT images of the cervical spine were performed and reformatted in the sagittal and coronal plane without the use of contrast. A dose lowering technique was utilized adhering to the principles of ALARA. COMPARISON: None. FINDINGS: No fractures. No subluxation. Prevertebral soft tissues and the C1-C2 interval are intact. No pneumothorax. IMPRESSION: No fractures within the cervical spine. ACT 112: Negative or not required by law. Electronically signed by: Nader Sinha M.D. 02/05/2022 4:01 PM Elbow X-Ray 02/05/22 15:07 XR elbow RT min 3V routine CLINICAL HISTORY: fall, pain TECHNIQUE: 3 views of the right elbow were obtained. Comparison: None available at the time of this dictation. FINDINGS: There is an acute fracture of the olecranon. The fracture is mildly distracted. Joint spaces are well-preserved. Soft tissue swelling is seen about the elbow. IMPRESSION: Acute olecranon fracture with associated soft tissue swelling. ACT 112: Negative or not required by law. Electronically signed by: Dandre Peña M.D. 02/05/2022 4:[address] 02/05/22 15:07 CT head/brain wo con CLINICAL HISTORY: fall, lac Technique: Contiguous axial CT images of the head were acquired from the base of the skull to the vertex without intravenous contrast administration. Images were viewed in brain, subdural and bone windows. Automated dose lowering techniques and/or adjustment according to patient size were utilized for this exam. Comparison: None available at the time of this dictation. Findings: Areas of decreased attenuation are present in the periventricular and subcortical white matter bilaterally consistent with small vessel ischemic disease. Generalized cerebral atrophy with commensurate enlargement of the ventricles, sulci, and cisterns is also present. There is no acute intracranial hemorrhage or evidence of acute territorial infarction. No shift of the midline structures, mass effect, or extra-axial abnormalities are shown. Atherosclerotic calcifications are present in the intracranial segments of the internal carotid arteries. Imaged portions of the paranasal sinuses and mastoid air cells are clear. The orbits appear normal. Soft tissue swelling is seen in the right calvarium. Impression: No acute intracranial hemorrhage or skull fractures. Scalp swelling is seen in the right calvarium. ACT 112: Negative or not required by law. Electronically signed by: Dandre Peña M.D. 02/05/2022 3:56 PM Hip/Pelvis X-Ray 02/05/22 15:07 XR hip RT 2V w pelvis CLINICAL HISTORY: fall, pain TECHNIQUE: 2 views of the right hip and single frontal view of the pelvis were obtained. Comparison: None available at the time of this dictation. FINDINGS: There is no evidence of an acute fracture. Degenerative changes are seen in the hip joint. No soft tissue abnormality is seen. IMPRESSION: No evidence of acute osseous injury. ACT 112: Negative or not required by law. Electronically signed by: Dandre Peña M.D. 02/05/2022 4:11 PM Chest X-Ray 02/05/22 15:08 XR chest 1V portable CLINICAL HISTORY: weakness TECHNIQUE: Single frontal radiograph of the chest was obtained. Comparison: Comparison is made to chest 2 views 07/23/2021 FINDINGS: No lines and tubes are seen. Cardiac silhouette is top normal. The lungs are clear. No evidence of pleural effusion or pneumothorax. IMPRESSION: No acute chest disease. ACT 112: Negative or not required by law. Electronically signed by: Dandre Peña M.D. 02/05/2022 4:[address] 02/05/22 16:16 CT pelvis w/IV con only CLINICAL HISTORY: hip and pelvic pain, poss fx TECHNIQUE: Helical axial images of the pelvis were obtained and displayed at 5 and 1 mm intervals. Automated dose lowering techniques and/or adjustment according to patient size were utilized for this exam. This exam was performed with intravenous contrast. COMPARISON: Comparison is made to CT abdomen pelvis 04/06/2014 FINDINGS: Bladder: Yanez catheter is seen. Reproductive organs: Unremarkable. Bowel: Diverticulosis is seen without evidence of diverticulitis. Lymph nodes Mesenteric: Unremarkable. Pelvic: Unremarkable. Peritoneum: Normal Vessels: Atherosclerotic calcifications are seen. Abdominal wall: Unremarkable. Bones: There is a comminuted fracture of the right pubic symphysis extending to the anterior superior pubic ramus, as well as a comminuted fracture of the right inferior pubic ramus. The acetabula are uninvolved. Sacroiliac joints are intact. Degenerative changes are seen in the spine and hip joints. IMPRESSION: Comminuted fractures of the right pubic symphysis and superior and inferior pubic ramus. ACT 112: Negative or not required by law. Electronically signed by: Dandre Peña M.D. 02/05/2022 5:38 PM Medications Administered Home Medications aspirin 81 mg tablet,delayed release 81 mg PO QAM 07/01/18 [History Confirmed 02/05/22] calcium carbonate 600 mg-vitamin D3 20 mcg (800 unit) chewable tablet (Caltrate 600 plus D) 1 tab PO QAM tab 07/01/18 [History Confirmed 02/05/22] cod liver oil 1 cap PO QAM 07/01/18 [History Confirmed 02/05/22] cholecalciferol (vitamin D3) 25 mcg (1,000 unit) tablet (Vitamin D3) 25 mcg PO QAM 07/16/21 [History Confirmed 02/05/22] cranberry extract 500 mg tablet 500 mg PO QAM 07/16/21 [History Confirmed 02/05/22] cyanocobalamin (vitamin B-12) 1,000 mcg tablet,extended release (Vitamin B-12 ER) 1,000 mcg PO QAM 07/16/21 [History Confirmed 02/05/22] magnesium 250 mg tablet 250 mg PO BID 07/16/21 [History Confirmed 02/05/22] turmeric root extract 500 mg capsule 500 mg PO QAM 07/16/21 [History Confirmed 02/05/22] vitamin B complex 1 tab PO 3XWK 07/16/21 [History Confirmed 02/05/22] albuterol sulfate 90 mcg/actuation aerosol inhaler (ProAir HFA) 1 - 2 puff INH Q6H PRN #8.5 gm 08/01/21 [Rx Confirmed 02/05/22] levothyroxine 100 mcg tablet (Synthroid) 100 mcg PO QAM #90 tab 12/04/21 [Rx Confirmed 02/05/22] lisinopril 2.5 mg tablet 1.25 mg PO BID #90 tab 12/04/21 [Rx Confirmed 02/05/22] solifenacin 10 mg tablet (Vesicare) 10 mg PO DAILY #30 tab 12/11/21 [Rx Confirmed 02/05/22] prednisone 1 mg tablet 2 mg PO DAILY tab 01/30/22 [History Confirmed 02/05/22] Active Medications Parenteral Electrolytes (Plasma-Lyte A) 1,000 mls @ 80 mls/hr IV .[id number] LEROY Stop: 03/07/22 19:16 Discontinued Medications Acetaminophen (Acetaminophen 1000 Mg/100 Ml Iv) 1,000 mg IV NOW STA Stop: 02/05/22 15:08 Last Admin: 02/05/22 15:29 Dose: 1,000 mg Documented by: [id number] Diphtheria/Pertussis/Tetanus Vacc (Diphtheria/Tetanus/Pertussis 0.5 Ml Syr/Vial) 0.5 ml IM .ONCE ONE Stop: 02/05/22 15:08 Last Admin: 02/05/22 15:30 Dose: 0.5 ml Documented by: [id number] Hydromorphone HCl (Hydromorphone Inj 0.5 Mg/0.5 Ml Syr) 0.5 mg IV NOW STA Stop: 02/05/22 18:52 Last Admin: 02/05/22 18:59 Dose: 0.5 mg Documented by: [id number] Sodium Chloride (Nss) 500 mls @ 999 mls/hr IV .Q31M LEROY Stop: 02/05/22 15:45 Last Infusion: 02/05/22 16:33 Dose: 0 mls/hr Documented by: [id number] Admin: 02/05/22 15:27 Dose: 999 mls/hr Documented by: [id number] Ceftriaxone Sodium (Rocephin) 1,000 mg in 50 mls @ 100 mls/hr IV NOW STA Stop: 02/05/22 17:50 Last Admin: 02/05/22 19:01 Dose: 100 mls/hr Documented by: [id number] Ioversol (Optiray 320 100ml) 93 ml IV ONCE ONE Stop: 02/05/22 16:58 Last Admin: 02/05/22 16:58 Dose: 93 ml Documented by: [id number] Labetalol HCl (Labetalol Hcl Iv 5 Mg/Ml 20ml) 10 mg IV NOW STA Stop: 02/05/22 17:22 Last Admin: 02/05/22 18:56 Dose: Not Given Documented by: [id number] Lidocaine/Epinephrine (Lido/Epinephrine/Sod Bicarb 20 Ml Vial) 20 ml INFIL NOW ONE Stop: 02/05/22 15:18 Last Admin: 02/05/22 16:32 Dose: 20 ml Documented by: [id number] Ondansetron HCl (Ondansetron Inj 2 Mg/Ml 2 Ml Vial) 4 mg IV NOW STA Stop: 02/05/22 15:08 Last Admin: 02/05/22 15:27 Dose: 4 mg Documented by: [id number] ECG Additional Comments: Vent. Rate : 067 BPM Atrial Rate : 067 BPM P-R Int : 182 ms QRS Dur : 100 ms QT Int : 424 ms P-R-T Axes : 082 -18 008 degrees QTc Int : 448 ms Normal sinus rhythm Minor Non-specific intra-ventricular conduction delay Voltage criteria for left ventricular hypertrophy Nonspecific ST abnormality Lateral leads Abnormal ECG When compared with ECG of 23-JUL-2021 14:40, No significant change was found Confirmed by Breezy Christianson ([id number]) on 02/05/2022 4:14:23 PM Code Status & VTE Plan Code Status CODE: FULL VTE: SCDs, TEDS, ASA VTE Prophylaxis Plan VTE Prophylaxis will be ordered: Yes Supervising Physician Co-Signing Physician Notes I personally saw and examined the patient. I verified all carcamo points and agree with MANOJ Bonilla with the following exceptions and/or additions: 86 year old female admission admission for a fall. Found by on ground. Pelvic fracture and right olecranon fracture seen on imaging and secondary survery otherwise negative. O/E A&Ox3, HS1+2, no murmurs, Chest CTAB, Abdo SNT, NV intact distal LE and RUE (known peripheral neuropathy with numbness below ankles b/l) A/P Fall - unable to to remember falling. Unclear reasons for falling ?UTI. Monitor on telemetry for arrhythmia. Right olecranon fracture - consult orthopedics Pevic fracture - consult orthopedics UTI - ceftriaxone 1g IV daily, follow up urine culture PG Care Time/CCT Total # of Minutes Spent Total Time Spent with Patient: Total time spent is greater than 50% in coordination of care (as documented) at patient's floor/unit and/or counseling patient: Coding Level of Care Code 45438 Initial Inpt Care Lvl 3 Diagnoses Pelvis fracture S32.9XXA Olecranon fracture S52.023A Polymyalgia rheumatica M35.3 Hypothyroidism E03.9 Osteoarthritis of shoulders, bilateral M19.011; M19.012 Pre-diabetes R73.03 Asthma J45.909 Osteoporosis M81.0 Vitamin D deficiency E55.9 Nocturia R35.1 UTI (urinary tract infection) N39.0 Hypercalcemia E83.52 Laceration of head S01.91XA Renal insufficiency N28.9 S/P rotator cuff repair Z98.890
--- NOTE | 2022-02-05 19:31 | XRay Report ---
XR shoulder RT min 2V routine CLINICAL HISTORY: eval hardware and eval for frx TECHNIQUE: 2 views of the right shoulder were obtained. Comparison: Comparison is made to right shoulder radiographs 03/21/2031 FINDINGS: There is no evidence of an acute fracture. Degenerative changes are seen in the glenohumeral joint. T he overlying soft tissues are unremarkable. The visualized portions of the lungs are clear. IMPRESSION: Degenerative changes without evidence of acute abnormality. ACT 112: Negative or not required by law. Electronically signed by: Dandre Peña M.D. 02/05/2022 7:29 PM
[2022-02-05] MEDS ORDERED: GLUCOSE 40% GEL 15 GM TUBE PO PRN (20:54)
[2022-02-05] MEDS ORDERED: bisacodyL 5 MG TABEC PO PRN (20:54)
[2022-02-05] MEDS ORDERED: ONDANSETRON INJ 2 MG/ML 2 ML VIAL IV PRN (20:54)
[2022-02-05] MEDS ORDERED: CARBOHYDRATES FOR HYPOGLYCEMIA PO PRN (20:54)
[2022-02-05] MEDS ORDERED: LABETALOL HCL IV 5 MG/ML 20ML IV PRN (20:54)
[2022-02-05] MEDS ORDERED: GLUCAGON FOR INJ 1 MG VIAL SQ PRN (20:54)
[2022-02-05] MEDS ORDERED: DEXTROSE 50% 50 ML SYRINGE IV PRN (20:54)
[2022-02-05] MEDS ORDERED: GLUCOSE 10 TABS/TUBE PO PRN (20:54)
[2022-02-05] MEDS ORDERED: ALBUTEROL HFA 8 GM INHALER INH PRN (21:17)
[2022-02-05] MEDS: NORMOSOL-R 1,000 ML IV SCH (22:37)
[2022-02-05] MEDS: SENNA 8.6 MG TAB PO SCH (22:37)
[2022-02-05] MEDS: lisinopril 2.5 MG TAB PO SCH (22:37)
[2022-02-06] MEDS: ACETAMINOPHEN 325 MG TAB PO PRN ×4 (02:12→17:43)
[2022-02-06] MEDS: LEVOTHYROXINE SODIUM 100 MCG TABLET PO SCH (05:46)
--- NOTE | 2022-02-06 06:42 | Orthopedic Consultation ---
Date of Service February 06, 2022 Assessment & Plan (1) Closed pelvic fracture: (2) Closed fracture of right elbow: Time was spent describing the diagnosis and treatment options with Rubi at bedside. With regards to pubic rami fracture this will heal without surgery. It usually pretty sore for about 4 to 6 weeks and then symptoms improved. She can be weightbearing as tolerated with the pubic rami fracture. With regards to the right elbow, the olecranon fracture is displaced and she is still currently active. I think this is best treated with plate and screw fixation. I think a surgery would give her the most predictable recovery. She understands the risk, benefits, and alternatives to procedure and elected to proceed. Questions were answered at bedside. I put her on the operative schedule for tomorrow early afternoon. She can have a full diet today. She will be n.p.o. past midnight tonight. History of Present Illness Reason for Consultation: Right olecranon fracture and right pubic rami fracture Requesting Physician: . Attending Physician: Marcial Castanon MD Rubi is a pleasant 86-year-old female who is well-known to me. I recently repaired her rotator cuff. She lives in a house with her . She normally ambulates without assistance. She was walking up the driveway yesterday with her when she fell. Her or her do not recall how she fell. When she got up she had right-sided hip pain and right elbow pain. She also had a head laceration. She came to the emergency room. The head laceration was closed and CT scan of her cervical spine was negative. X-rays of her elbow showed a displaced olecranon fracture. CT scan of her pelvis showed displaced right superior and inferior pubic rami fractures. A Yanez was placed and she was noted to have a UTI. She was started on Rocephin. She was admitted to the hospitalist service. Orthopedics was consulted to evaluate and treat. Allergies Allergy/AdvReac Type Severity Reaction Status Date / Time fexofenadine AdvReac Unknown Diarrhea Verified 02/05/22 17:36 Home Medications Medication Instructions Recorded Confirmed Type aspirin 81 mg tablet,delayed 81 mg PO QAM 07/01/18 02/05/22 History release calcium carbonate 600 mg-vitamin 1 tab PO QAM tab 07/01/18 02/05/22 History D3 20 mcg (800 unit) chewable tablet (Caltrate 600 plus D) cod liver oil 1 cap PO QAM 07/01/18 02/05/22 History cholecalciferol (vitamin D3) 25 25 mcg PO QAM 07/16/21 02/05/22 History mcg (1,000 unit) tablet (Vitamin D3) cranberry extract 500 mg tablet 500 mg PO QAM 07/16/21 02/05/22 History cyanocobalamin (vitamin B-12) 1,000 mcg PO QAM 07/16/21 02/05/22 History 1,000 mcg tablet,extended release (Vitamin B-12 ER) magnesium 250 mg tablet 250 mg PO BID 07/16/21 02/05/22 History turmeric root extract 500 mg 500 mg PO QAM 07/16/21 02/05/22 History capsule vitamin B complex 1 tab PO 3XWK 07/16/21 02/05/22 History albuterol sulfate 90 mcg/actuation 1 - 2 puff INH Q6H PRN #8.5 gm 08/01/21 02/05/22 Rx aerosol inhaler (ProAir HFA) levothyroxine 100 mcg tablet 100 mcg PO QAM #90 tab 12/04/21 02/05/22 Rx (Synthroid) lisinopril 2.5 mg tablet 1.25 mg PO BID #90 tab 12/04/21 02/05/22 Rx solifenacin 10 mg tablet (Vesicare) 10 mg PO DAILY #30 tab 12/11/21 02/05/22 Rx prednisone 1 mg tablet 2 mg PO DAILY tab 01/30/22 02/05/22 History Past Med/Surg History Medical History Lawrence's palsy ~2003 Hx of basal cell carcinoma Hx of bronchiectasis follows with Pulmonary [facility] Hypothyroidism Osteoarthritis Polymyalgia rheumatica Pre-diabetes monitors Renal insufficiency PCP monitoring Solitary pulmonary nodule Surgical History Hx of skin graft S/P appendectomy S/P blepharoplasty Left S/P cataract surgery bilateral S/P cholecystectomy S/P colonoscopy S/P parathyroidectomy r/t hypercalcemia S/P right knee arthroscopy Family History Mother Myocardial infarction Hypertension Family/Other Thyroid disorder Brother Thyroid disorder Sister Thyroid disorder Other Diabetes Heart disease No family history of adverse response to anesthesia Denies family history of Ovarian cancer Prostate cancer Breast cancer Colorectal cancer Social History Smoking Status: Former smoker Second Hand Exposure: No; Hx Alcohol Use: Yes Alcohol type: wine Alcohol Intake Frequency Comment: SOCIALLY Hx Substance Use: No Preferred Language: Syriac Communication Ability: Effective Visual Impairment: No Limitations Hearing Ability: Normal Photocomposing Keyboard Operator Required: No Beliefs That Will Affect Care: None marital status: Current Living Situation: Spouse current occupational status: retired How many Children do You have: 2 How many Children do You have Comment: 1 boy 1 girl Other Information That Helps Us Care for You: No Feels Safe at Home: Yes Safety Concerns: Feels Safe At This Time Childhood Exposure to Second-Hand Smoke: No during the past year weight has: remained stable Dental Care, Regularly: Yes Physical Activity Frequency: Daily Seatbelt Use: always Sunscreen Use: Yes Assistive Devices: Oxygen - Continuous Review of Systems All systems reviewed & are unremarkable except as noted in HPI & below. Physical Exam On physical examination of her pelvis, she has tenderness palpation over the pubic rami. I am able to do some range of motion of her hip. She has no evidence of hip fracture. Her leg lengths are equal. On physical examination of her right elbow she has a posterior splint in place. She has active motion of her fingers and her wrist. Sensation is intact. Constitutional WD/WN, vitals as above Eyes PERRL, conjunctivae normal, anicteric sclerae ENMT external ear and nose normal, oropharynx normal Neck trachea midline, no thyromegaly Respiratory normal respiratory effort Cardiovascular RRR, no murmur, no edema Gastrointestinal (Abdomen) normal bowel sounds, soft, nontender, no hepatosplenomegaly Psychiatric A+Ox3, euthymic affect Results & Data Results & Data Laboratory Results . Diagnostic Findings X-rays of the right elbow do show a displaced transverse right olecranon fracture CT scan of the pelvis shows displaced superior and inferior right pubic rami fractures. PG Care Time/CCT Total # of Minutes Spent Total Time Spent with Patient: Total time spent is greater than 50% in coordination of care (as documented) at patient's floor/unit and/or counseling patient: Coding Level of Care Code 70040 Inpt Consult Level 4 (57 - DECISION FOR SURGERY) Diagnoses Closed pelvic fracture S32.82XA Encounter type: initial encounter Fracture alignment: without disruption of pelvic ring Pelvic bone location: multiple parts Closed fracture of right elbow S42.401A Encounter type: initial encounter (1) Closed pelvic fracture Encounter type: initial encounter Fracture alignment: without disruption of pelvic ring Pelvic bone location: multiple parts Qualified Code(s): S32.82XA - Multiple fractures of pelvis without disruption of pelvic ring, initial encounter for closed fracture (2) Closed fracture of right elbow Encounter type: initial encounter Qualified Code(s): S42.401A - Unspecified fracture of lower end of right humerus, initial encounter for closed fracture
[2022-02-06 08:35] LABS: Basophils # (auto) 0.03 K/uL (0-0.2); Basophils % (auto) 0.2 %; Eosinophils # (auto) 0.19 K/uL (0-0.5); Eosinophils % (auto) 1.4 %; Hematocrit (blood only) 30.8 % (37-47); Hemoglobin 10.1 g/dL (12.0-16.0); Immature Granulocytes # (auto) 0.05 K/uL (0.00-0.02); Immature Granulocytes % (auto) 0.4 %; Lymphocytes # (auto) 1.41 K/uL (1.2-3.4); Lymphocytes % (auto) 10.5 %; Mean Corpuscular Hgb Conc 32.8 g/dL (32-36); Mean Corpuscular Volume 91.4 fL (80-100); Mean Platelet Volume 11.3 fL (7.4-10.4); Monocytes # (auto) 1.19 K/uL (0.11-0.59); Monocytes % (auto) 8.9 %; Neutrophils # (auto) 10.52 K/uL (1.4-6.5); Neutrophils % (auto) 78.6 %; Platelet Count 299 K/uL (130-400); RDW Coefficient of Variation 14.6 % (11.5-14.5); RDW Standard Deviation 48.6 fL (36.4-46.3); Red Blood Count 3.37 M/uL (4.2-5.4); White Blood Count 13.39 K/uL (4.8-10.8)
[2022-02-06] MEDS: CHOLECALCIFEROL 1,000 UNITS 25 MCG TAB PO SCH (08:36)
[2022-02-06] MEDS: lisinopril 2.5 MG TAB PO SCH ×2 (08:36→21:20)
[2022-02-06] MEDS: predniSONE 1 MG TAB PO SCH (08:37)
[2022-02-06] MEDS: POLYETHYLENE (MIRALAX) 17 GM PACK PO SCH (08:40)
[2022-02-06 09:23] LABS: BUN Creatinine Ratio 14.7 (10-20); Calcium 8.2 mg/dl (8.5-10.1); Creatinine Clr Calc Pharmacy 30.4 ml/min; Est GFR (Non-African American) 35.4 ml/min; Potassium 3.8 mmol/L (3.5-5.1)
[2022-02-06] MEDS: NORMOSOL-R 1,000 ML IV SCH (11:17)
--- NOTE | 2022-02-06 12:18 | Hospitalist Progress Note ---
Date of Service February 06, 2022 Assessment & Plan (1) Syncope and collapse: Plan: - At this time, strongly suspect cardiogenic cause of syncope, 3rd event over the past year and all w/o warning - Obtain echocardiogram - Discussed case with Dr. Snider re: event monitor v loop recorder, will consult, appreciate assistance (2) Pelvis fracture: Plan: comminuted fracture of the right pubic symphysis extending to the anterior superior pubic ramus, as well as a comminuted fracture of the right inferior pubic ramus. The acetabula are uninvolved - Shine placed- continue management to gravity - Bedrest- maintain - No free fluid in pelvis noted on CT scan - follow HGB/HCT - Pain control tiered- Tylenol, oxy 5 prn, hydromorphone prn - Orthopedics consulted - appreciate assistance - plan is for nonsurgical management - WBAT, PT/OT eval (3) Olecranon fracture: Plan: Splinted by EMD - sensation and movement of fingers and hand intact - Ortho consulted, plan for ORIF on 02/06, NPO after MN (4) UTI (urinary tract infection): Plan: with associated leukocytosis (downtrending) - Continue empiric Rocephin 1g IV daily - await culture and tailor abx accordingly (5) Laceration of head: Plan: From fall with head strike to driveway - Initial head non-con head negative - Neurologically intact- amnestic to event leading up to fall - Nuero exams q4 hour- any change obtain non-con head CT scan evaluate for DASH - Wound primary closure with miranda by EMD - Tetanus given (6) Polymyalgia rheumatica: Plan: Chronic- has been on steroids (prednisone)- since appears June 23 - Patient on low dose 2mg daily currently- continue - Will plan for post-operative stress-dose steroids (7) Renal insufficiency: Plan: CKD III- CRCL 33- chronic - renally dose medications when needed - avoid further nephrotoxic medications - stable- baseline QA CONSULTANT 1.24-1.4 (8) Hypothyroidism: Plan: Continue Synthroid - TSH normal (9) Pre-diabetes: Plan: BG checks q6 hour while NPO - will add coverage if > 180 - hypoglycemic protocol in place - follow postoperative or with steroid increase (10) Hypercalcemia: Plan: Mild 10.4 no symptoms - hold calcium supplementation - check iCA in the morning (11) Asthma: Plan: Pt w/ chronic asthma and bronchiectasis, does not wear home O2 - Continue Albuterol 2 puffs q4 prn (12) Osteoporosis: Plan: Continue vitamin D - Hold calcium - iCA level WNL (13) Vitamin D deficiency: Plan: - Vitamin D level ordered Plan: Interventions as outlined above Pain control, PT/OT eval, anticipate pt will require rehab upon d/c Cardiac w/u for syncope, appreciate Dr. Snider's input/assistance Follow up labs in AM Provided upate to patient's son, Uriah, on 02/06 Plan d/w Dr. Ron. Admission and Anticipated Discharge Date Admission Date: February 05, 2022 Subjective Patient seen on daily rounds this morning. She is resting comfortably in bed. Mentioned to RN that she was having double vision this morning, normally wears glasses but doesn't have them with her at this time. She has a known astigmatism. She denies focal weakness, numbness/tingling, blurred vision, headache. She denies uncontrolled pelvic pain or arm pain. Denies cp, palpitations, or dyspnea. Review of Systems Review of Systems: Constitutional: No fever, sweats or chills Eyes: No diplopia, no worsening or blurred vision ENT: normal hearing, no trouble swallowing Respiratory: No cough, sputum, dyspnea at rest or on exertion Cardiovascular: No chest pain, tightness or palpitations Abdomen: (+) urinary frequency, No pain, nausea, vomiting, diarrhea or constipation Musculoskeletal: (+) right shoulder, arm, hip and pelvic pain, right arm splinted, chronic joint pain Neurologic: No weakness, numbness/tingling, or balance problems Psychiatric: No anxiety or depression Skin: No rash or itch Physical Exam Physical Exam: GENERAL: 86 yo well-developed, well-nourished elderly WF. NAD. LUNGS: Clear to auscultation bilaterally. No W/R/R. CARDIOVASCULAR: Regular rate and rhythm. No m/g/r ABDOMEN: Soft, non-tender and non-distended. BS normal x 4 quad. : shine EXTREMITIES: No edema. Non-tender. Peripheral pulses +2/4. NEUROLOGIC: A&O x3. No focal neurological deficits. CN II-XII grossly intact. PSYCHIATRIC: Cooperative. Appropriate mood and affect. SKIN: Warm, dry, intact. scalp lac closed w/ miranda Results & Data Results & Data ([facility]) Vital Signs (Past 12 Hours) Vital Signs Temp Pulse Pulse Resp BP Pulse Ox 02/06/22 11:04 36.8 C 70 19 155/67 H 93 02/06/22 08:07 37.0 C 68 18 145/66 H 91 02/06/22 08:01 67 02/06/22 03:27 37.5 C 71 18 153/63 H 94 Laboratory Results 02/06/22 08:12 02/06/22 08:12 PG Care Time/CCT Total # of Minutes Spent Total Time Spent with Patient: Total time spent is greater than 50% in coordination of care (as documented) at patient's floor/unit and/or counseling patient: Coding Level of Care Code 41832 Subseq Hosp Care Lvl 3 Diagnoses Pelvis fracture S32.9XXA Olecranon fracture S52.023A UTI (urinary tract infection) N39.0 Laceration of head S01.91XA Polymyalgia rheumatica M35.3 Renal insufficiency N28.9 Hypothyroidism E03.9 Pre-diabetes R73.03 Hypercalcemia E83.52 Asthma J45.909 Osteoporosis M81.0 Vitamin D deficiency E55.9 Syncope and collapse R55
--- NOTE | 2022-02-06 14:30 | XCELERA ---
[id number] \\[id number]}___[id number]
--- NOTE | 2022-02-06 15:08 | Cardiology Consultation ---
Date of Consultation February 06, 2022 Assessment & Plan (1) Syncope and collapse: 1. Syncope: She has had 3 widely spaced falls, these have spanned about 4 years in the first and the most recent or clearly associate with loss of consciousness, the other one perhaps a month ago may not have been and may have been presyncope. It is hard to tell from the description exactly what it is but does not sound like orthostasis and sound suspicious for an arrhythmia. I think we definitely need some type of monitoring for an arrhythmia. She will be monitored here for several days and I would keep her on the monitor until she goes home. Prior to going home we should either use a 30-day event monitor or an implantable loop recorder. With the infrequency of the events and the possibility that we may not picked up the next event with a 30-day monitor (due to difficulty in keeping the monitor in place for that long) I would favor an implantable loop recorder. I did talk to her and her and they are agreeable. I am planning on implanting that Friday, we can certainly change that if needed. History of Present Illness Reason for Consultation: Syncope Attending Physician: Alex Ron MD History of Present Illness This is an 86-year-old woman with a history of hypothyroidism, renal insufficiency and prediabetes who presents with a fall with significant injury. She evidently was walking on her driveway and suddenly fell to the ground, her is present in the room and notes that the fall was not witnessed although he heard her scream and went right to her side. He thinks it took about 5 minutes for her to come around and when she did she was somewhat confused and asking a lot of questions about what happened. From that it seems that she did not recall the fall. This is the third fall that her recalls, the first was perhaps 4 to 5 years ago when she was on the toilet and had a similar event and ended up on the bathroom floor although she came around more quickly that time. She then had another episode perhaps a month ago where she sank down to the floor but did not completely lose consciousness and had no injury. With this fall she had injuries including a laceration to her scalp, a pubic fracture and an olecranon fracture. She does not recall the events leading to the fall and it does not seem that she was able to control her fall. 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 Conceivably she tripped although it seems that she was unconscious. An echocardiogram February 06, 2022 shows normal left ventricular systolic function with moderate concentric left ventricular hypertrophy, mild aortic insufficiency. She is in bed at the time of my evaluation, she has no complaints of palpitations, she denies having lightheadedness or dizziness either at these times or at other times and does not recall any other fainting or presyncopal events other than those noted above. She has no exertional symptoms such as chest discomfort or shortness of breath. Allergies Allergy/AdvReac Type Severity Reaction Status Date / Time fexofenadine AdvReac Unknown Diarrhea Verified 02/05/22 17:36 Home Medications Medication Instructions Recorded Confirmed Type aspirin 81 mg tablet,delayed 81 mg PO QAM 07/01/18 02/05/22 History release calcium carbonate 600 mg-vitamin 1 tab PO QAM tab 07/01/18 02/05/22 History D3 20 mcg (800 unit) chewable tablet (Caltrate 600 plus D) cod liver oil 1 cap PO QAM 07/01/18 02/05/22 History cholecalciferol (vitamin D3) 25 25 mcg PO QAM 07/16/21 02/05/22 History mcg (1,000 unit) tablet (Vitamin D3) cranberry extract 500 mg tablet 500 mg PO QAM 07/16/21 02/05/22 History cyanocobalamin (vitamin B-12) 1,000 mcg PO QAM 07/16/21 02/05/22 History 1,000 mcg tablet,extended release (Vitamin B-12 ER) magnesium 250 mg tablet 250 mg PO BID 07/16/21 02/05/22 History turmeric root extract 500 mg 500 mg PO QAM 07/16/21 02/05/22 History capsule vitamin B complex 1 tab PO 3XWK 07/16/21 02/05/22 History albuterol sulfate 90 mcg/actuation 1 - 2 puff INH Q6H PRN #8.5 gm 08/01/21 02/05/22 Rx aerosol inhaler (ProAir HFA) levothyroxine 100 mcg tablet 100 mcg PO QAM #90 tab 12/04/21 02/05/22 Rx (Synthroid) lisinopril 2.5 mg tablet 1.25 mg PO BID #90 tab 12/04/21 02/05/22 Rx solifenacin 10 mg tablet (Vesicare) 10 mg PO DAILY #30 tab 12/11/21 02/05/22 Rx prednisone 1 mg tablet 2 mg PO DAILY tab 01/30/22 02/05/22 History Patient History Medical History Lawrence's palsy ~2003 Hx of basal cell carcinoma Hx of bronchiectasis follows with Pulmonary [facility] Hypothyroidism Osteoarthritis Polymyalgia rheumatica Pre-diabetes monitors Renal insufficiency PCP monitoring Solitary pulmonary nodule Surgical History Hx of skin graft S/P appendectomy S/P blepharoplasty Left S/P cataract surgery bilateral S/P cholecystectomy S/P colonoscopy S/P parathyroidectomy r/t hypercalcemia S/P right knee arthroscopy Family History Mother Myocardial infarction Hypertension Family/Other Thyroid disorder Brother Thyroid disorder Sister Thyroid disorder Other Diabetes Heart disease No family history of adverse response to anesthesia Denies family history of Ovarian cancer Prostate cancer Breast cancer Colorectal cancer Social History Smoking Status: Former smoker Second Hand Exposure: No; Hx Alcohol Use: Yes Alcohol type: wine Alcohol Intake Frequency Comment: SOCIALLY Hx Substance Use: No Preferred Language: Citizen Of [place] Communication Ability: Effective Visual Impairment: No Limitations Hearing Ability: Normal Crm Solution Architect Required: No Beliefs That Will Affect Care: None marital status: Current Living Situation: Spouse current occupational status: retired How many Children do You have: 2 How many Children do You have Comment: 1 boy 1 girl Other Information That Helps Us Care for You: No Feels Safe at Home: Yes Safety Concerns: Feels Safe At This Time Childhood Exposure to Second-Hand Smoke: No during the past year weight has: remained stable Dental Care, Regularly: Yes Physical Activity Frequency: Daily Seatbelt Use: always Sunscreen Use: Yes Assistive Devices: None Review of Systems Review of Systems: All systems reviewed & are unremarkable except as noted in HPI & below Physical Exam Physical Exam: Constitutional: Alert, cooperative and in no distress. HEENT: Unremarkable Neck: No jugular venous distention, carotid pulses are normal and equal bilaterally without bruits. Pulmonary: Clear to auscultation bilaterally. Cardiac: Regular rhythm with no murmur, gallop or rub. Abdomen: Soft, nontender with normal bowel sounds. Extremities: No edema. Distal pulses intact. Neurologic: No focal findings. Skin: No rash, ecchymoses or petechiae. Results & Data ([facility]) Vital Signs (Past 12 Hours) Vital Signs Temp Pulse Pulse Resp BP Pulse Ox 02/06/22 11:04 36.8 C 70 19 155/67 H 93 02/06/22 08:07 37.0 C 68 18 145/66 H 91 02/06/22 08:01 67 02/06/22 03:27 37.5 C 71 18 153/63 H 94 Laboratory Results CBC 02/06/22 Range/Units 08:12 WBC 13.39 H (4.8-10.8) K/uL RBC 3.37 L (4.2-5.4) M/uL Hgb 10.1 L (12.0-16.0) g/dL Hct 30.8 L (37-47) % Plt Count 299 (130-400) K/uL Neut # (Auto) 10.52 H (1.4-6.5) K/uL Lymph # (Auto) 1.41 (1.2-3.4) K/uL [place] # (Auto) 1.19 H (0.11-0.59) K/uL Eos # (Auto) 0.19 (0-0.5) K/uL Baso # (Auto) 0.03 (0-0.2) K/uL Comprehensive Metabolic Panel 02/06/22 Range/Units 08:12 Sodium 136 (136-145) mmol/L Potassium 3.8 (3.5-5.1) mmol/L Chloride 104 (98-107) mmol/L Carbon Dioxide 26 (21-32) mmol/L BUN 20 (6-23) mg/dl Creatinine 1.36 H (0.6-1.2) mg/dl Glucose 142 H (70-99(Fasting)) mg/dl Calcium 8.2 L D (8.5-10.1) mg/dl Intake and Output 02/06/22 02/06/22 02/06/22 06:59 14:59 22:59 Intake Total 1000 / 1000 Output Total 350 / 1650 675 / 675 Balance -350 / -1000 325 / 325 Intake: IV 1000 / 1000 Normosol-R 1,000 ml @ 80 mls/hr 1000 / 1000 IV .[id number] [facility] Rx#:[id number] Output: Urine Amount (Catheter) 350 / 1650 675 / 675 Yanez/Indwelling 350 / 165 675 / 675 Other: Other Intake Source npo Weight 77 kg Weight Measurement Method Built in [facility] Diagnostic Findings CBC 02/06/22 Range/Units 08:12 WBC 13.39 H (4.8-10.8) K/uL RBC 3.37 L (4.2-5.4) M/uL Hgb 10.1 L (12.0-16.0) g/dL Hct 30.8 L (37-47) % Plt Count 299 (130-400) K/uL Neut # (Auto) 10.52 H (1.4-6.5) K/uL Lymph # (Auto) 1.41 (1.2-3.4) K/uL [place] # (Auto) 1.19 H (0.11-0.59) K/uL Eos # (Auto) 0.19 (0-0.5) K/uL Baso # (Auto) 0.03 (0-0.2) K/uL Comprehensive Metabolic Panel 02/06/22 Range/Units 08:12 Sodium 136 (136-145) mmol/L Potassium 3.8 (3.5-5.1) mmol/L Chloride 104 (98-107) mmol/L Carbon Dioxide 26 (21-32) mmol/L BUN 20 (6-23) mg/dl Creatinine 1.36 H (0.6-1.2) mg/dl Glucose 142 H (70-99(Fasting)) mg/dl Calcium 8.2 L D (8.5-10.1) mg/dl Intake and Output 02/06/22 02/06/22 02/06/22 06:59 14:59 22:59 Intake Total 1000 / 1000 Output Total 350 / 1650 675 / 675 Balance -350 / -1000 325 / 325 Intake: IV 1000 / 1000 Normosol-R 1,000 ml @ 80 mls/hr 1000 / 1000 IV .[id number] Rx#:[id number] Output: Urine Amount (Catheter) 350 / 1650 675 / 675 Yanez/Indwelling 350 / 1650 675 / 675 Other: Other Intake Source npo Weight 77 kg Weight Measurement Method Built in [facility] Telemetry: Sinus rhythm, no significant arrhythmia. PG Care Time/CCT Total # of Minutes Spent Total Time Spent with Patient: Total time spent is greater than 50% in coordination of care (as documented) at patient's floor/unit and/or counseling patient: Coding Level of Care Code 37467 Initial Inpt Care Lvl 3 Diagnoses Syncope and collapse R55
[2022-02-06] MEDS ORDERED: cefTRIAXone SODIUM 1,000 MG in DEXTROSE 5% 50 ML IV SCH (17:00)
[2022-02-06] MEDS: oxyCODONE HCL IR 5 MG TAB (IMMEDIATE RELEASE) PO PRN ×2 (17:15→21:30)
[2022-02-06] MEDS: SENNA 8.6 MG TAB PO SCH (21:20)
[2022-02-07] MEDS: NORMOSOL-R 1,000 ML IV SCH ×2 (00:05→12:47)
[2022-02-07] MEDS: oxyCODONE HCL IR 5 MG TAB (IMMEDIATE RELEASE) PO PRN (05:07)
[2022-02-07] MEDS: LEVOTHYROXINE SODIUM 100 MCG TABLET PO SCH (05:12)
[2022-02-07 06:18] LABS: Basophils # (auto) 0.03 K/uL (0-0.2); Basophils % (auto) 0.2 %; Eosinophils # (auto) 0.21 K/uL (0-0.5); Eosinophils % (auto) 1.4 %; Hematocrit (blood only) 28.8 % (37-47); Hemoglobin 9.5 g/dL (12.0-16.0); Immature Granulocytes # (auto) 0.04 K/uL (0.00-0.02); Immature Granulocytes % (auto) 0.3 %; Lymphocytes # (auto) 1.15 K/uL (1.2-3.4); Lymphocytes % (auto) 7.7 %; Mean Corpuscular Volume 90.9 fL (80-100); Mean Platelet Volume 11.1 fL (7.4-10.4); Monocytes # (auto) 1.25 K/uL (0.11-0.59); Monocytes % (auto) 8.4 %; Neutrophils # (auto) 12.23 K/uL (1.4-6.5); Platelet Count 270 K/uL (130-400); RDW Coefficient of Variation 14.6 % (11.5-14.5); RDW Standard Deviation 48.4 fL (36.4-46.3); Red Blood Count 3.17 M/uL (4.2-5.4); White Blood Count 14.91 K/uL (4.8-10.8)
[2022-02-07 06:44] LABS: BUN Creatinine Ratio 11.5 (10-20); Calcium 7.8 mg/dl (8.5-10.1); Creatinine Clr Calc Pharmacy 32.5 ml/min; Est GFR (African American) 43.3 ml/min; Est GFR (Non-African American) 37.4 ml/min; Magnesium 2.2 mg/dl (1.7-2.4); Potassium 3.6 mmol/L (3.5-5.1)
[2022-02-07] MEDS: predniSONE 1 MG TAB PO SCH (08:51)
[2022-02-07] MEDS: CHOLECALCIFEROL 1,000 UNITS 25 MCG TAB PO SCH (08:51)
[2022-02-07] MEDS: ACETAMINOPHEN 325 MG TAB PO PRN ×2 (08:51→16:20)
[2022-02-07] MEDS: POLYETHYLENE (MIRALAX) 17 GM PACK PO SCH (08:52)
--- NOTE | 2022-02-07 08:57 | Anesthesiology Consultation ---
Date of Service February 07, 2022 Assessment & Plan (1) Encounter for pre-operative examination: Chart Review Chart Review: Acceptable Risk for Surgery and Patient NOT seen in Pre Admission Testing Consults Requested none History Surgery Operation Date: 02/07/22 13:30 Proposed Procedures p Left Olecranon Open Reduction Internal Fixation - Kaz Temple DO Height/Weight Height: 5 ft 4 in Weight: 80.7 kg Allergies Allergy/AdvReac Type Severity Reaction Status Date / Time fexofenadine AdvReac Unknown Diarrhea Verified 02/05/22 17:36 Medications Home Medications Medication Instructions Recorded Confirmed Last Taken aspirin 81 mg tablet,delayed 81 mg PO QAM 07/01/18 02/05/22 08/01/21 release calcium carbonate 600 mg-vitamin 1 tab PO QAM tab 07/01/18 02/05/22 08/01/21 D3 20 mcg (800 unit) chewable tablet (Caltrate 600 plus D) cod liver oil 1 cap PO QAM 07/01/18 02/05/22 08/01/21 cholecalciferol (vitamin D3) 25 25 mcg PO QAM 07/16/21 02/05/22 08/01/21 mcg (1,000 unit) tablet (Vitamin D3) cranberry extract 500 mg tablet 500 mg PO QAM 07/16/21 02/05/22 Unknown cyanocobalamin (vitamin B-12) 1,000 mcg PO QAM 07/16/21 02/05/22 08/01/21 1,000 mcg tablet,extended release (Vitamin B-12 ER) magnesium 250 mg tablet 250 mg PO BID 07/16/21 02/05/22 08/01/21 turmeric root extract 500 mg 500 mg PO QAM 07/16/21 02/05/22 Unknown capsule vitamin B complex 1 tab PO 3XWK 07/16/21 02/05/22 08/01/21 albuterol sulfate 90 mcg/actuation 1 - 2 puff INH Q6H PRN #8.5 gm 08/01/21 02/05/22 08/02/21 aerosol inhaler (ProAir HFA) levothyroxine 100 mcg tablet 100 mcg PO QAM #90 tab 12/04/21 02/05/22 Unknown (Synthroid) lisinopril 2.5 mg tablet 1.25 mg PO BID #90 tab 12/04/21 02/05/22 Unknown solifenacin 10 mg tablet (Vesicare) 10 mg PO DAILY #30 tab 12/11/21 02/05/22 Unknown prednisone 1 mg tablet 2 mg PO DAILY tab 01/30/22 02/05/22 Unknown Active Medications Generic Name Dose Route Start Last Admin Trade Name Freq PRN Reason Stop Dose Admin Acetaminophen 650 mg 02/05/22 20:54 02/07/22 08:51 Acetaminophen 325 Mg Tab PO 03/07/22 20:53 650 mg Q6H PRN Administration mild to moderate Pain & Pre PT Parenteral Electrolytes 1,000 mls @ 80 mls/hr 02/05/22 19:17 02/07/22 00:05 Plasma-Lyte A IV 03/07/22 19:16 80 mls/hr .[id number] LEROY Administration Ceftriaxone Sodium 1,000 mg/ 50 mls @ 100 mls/hr 02/06/22 17:00 02/06/22 17:57 Dextrose IV 02/11/22 16:59 Infused Q24H LEROY Infusion Protocol Levothyroxine Sodium 100 mcg 02/06/22 06:30 02/07/22 05:12 Levothyroxine Sodium 100 Mcg Tablet PO 03/08/22 06:29 100 mcg DAILYBB LEROY Administration Lisinopril 1.25 mg 02/05/22 21:00 02/06/22 21:20 Lisinopril 2.5 Mg Tab PO 03/07/22 20:59 1.25 mg BID LEROY Administration Oxycodone HCl 5 mg 02/05/22 20:54 02/07/22 05:07 Oxycodone Hcl Ir 5 Mg Tab (Immediate Release) PO 02/19/22 20:53 5 mg Q6 PRN Administration MODERATE Pain (4,5,6) & Pre PT Polyethylene Glycol 17 gm 02/06/22 09:00 02/07/22 08:52 Polyethylene (Miralax) 17 Gm Pack PO 03/08/22 08:59 Not Given DAILY LEROY Prednisone 2 mg 02/06/22 09:00 02/07/22 08:51 Prednisone 1 Mg Tab PO 03/08/22 08:59 2 mg DAILY LEROY Administration Sennosides 17.2 mg 02/05/22 21:00 02/06/22 21:20 Senna 8.6 Mg Tab PO 03/07/22 20:59 17.2 mg HS LEROY Administration Vitamin D 1,000 units 02/06/22 09:00 02/07/22 08:51 Cholecalciferol 1,000 Units 25 Mcg Tab PO 03/08/22 08:59 1,000 units QAM LEROY Administration Past Medical History Medical History Anemia Lawrence's palsy ~2003 Hx of basal cell carcinoma Hx of bronchiectasis follows with Pulmonary [facility] Hypothyroidism Osteoarthritis Polymyalgia rheumatica Pre-diabetes monitors Renal insufficiency PCP monitoring Solitary pulmonary nodule Past Family History Family History Mother Myocardial infarction Hypertension Family/Other Thyroid disorder Brother Thyroid disorder Sister Thyroid disorder Other Diabetes Heart disease No family history of adverse response to anesthesia Denies family history of Ovarian cancer Prostate cancer Breast cancer Colorectal cancer Past Surgical History Surgical History Hx of skin graft S/P appendectomy S/P blepharoplasty Left S/P cataract surgery bilateral S/P cholecystectomy S/P colonoscopy S/P parathyroidectomy r/t hypercalcemia S/P right knee arthroscopy Social History Smoking Status: Former smoker tobacco type: cigarettes Hx Alcohol Use: Yes Alcohol type: wine alcohol intake frequency: a few times a week Hx Substance Use: No substance use type: does not use Physical Exam Vital Signs Last Vital Signs Temp 37 C 02/07/22 03:37 Pulse 66 02/07/22 03:37 Resp 18 02/07/22 03:37 BP 163/71 H 02/07/22 03:37 Pulse Ox 94 02/07/22 03:37 Testing Laboratory Results 02/07/22 05:41 02/07/22 05:41 PT 10.5 Seconds (9.0-12.0) 02/05/22 15:14 INR 1.0 (0.9-1.1) 02/05/22 15:14 APTT 22.2 Seconds (21.0-31.0) 02/05/22 15:14 Urine Color Yellow 02/05/22 Unknown Urine Appearance Cloudy (Clear) A 02/05/22 Unknown Urine pH 7.5 (4.5-7.5) 02/05/22 Unknown Ur Specific [place] 1.012 (1.000-1.030) 02/05/22 Unknown Urine Protein Negative (Negative) 02/05/22 Unknown Urine Glucose (UA) Negative (Negative) 02/05/22 Unknown Urine Ketones Negative (Negative) 02/05/22 Unknown Urine Nitrite Positive (Negative) A 02/05/22 Unknown Ur Leukocyte Esterase 2+ (Negative) H 02/05/22 Unknown Urine WBC (Auto) >30 /hpf (0-5) H 02/05/22 Unknown Urine RBC (Auto) 0-4 /hpf (0-4) 02/05/22 Unknown U Hyaline Cast (Auto) 1-5 /lpf (0-5) 02/05/22 Unknown U Epithel Cells (Auto) 0-5 /lpf (0-5) 02/05/22 Unknown Urine Bacteria (Auto) 4+ (Negative) H 02/05/22 Unknown Blood Type A Positive 02/05/22 19:16 Antibody Screen NEGATIVE 02/05/22 19:16 02/05/22 Unknown Urine Culture - Preliminary Urine,Clean Catch Pin-point growth present, reincubating. 02/07/22 02/07/22 06:49 00:36 POC Glucose 126 H 141 H Electrocardiogram Date: 02/05/22 Test Reason : Blood Pressure : / mmHG Vent. Rate : 067 BPM Atrial Rate : 067 BPM P-R Int : 182 ms QRS Dur : 100 ms QT Int : 424 ms P-R-T Axes : 082 -18 008 degrees QTc Int : 448 ms Poor data quality, interpretation may be adversely affected Normal sinus rhythm Minor Non-specific intra-ventricular conduction delay Voltage criteria for left ventricular hypertrophy Nonspecific ST abnormality Lateral leads Abnormal ECG When compared with ECG of 23-JUL-2021 14:40, No significant change was found Confirmed by Breezy Christainson ([id number]) on 02/05/2022 4:14:23 PM Referred By: REFERRED SELF Confirmed By:Breezy Christianson Chest X-Ray Date: 02/05/22 XR chest 1V portable CLINICAL HISTORY: weakness TECHNIQUE: Single frontal radiograph of the chest was obtained. Comparison: Comparison is made to chest 2 views 07/23/2021 FINDINGS: No lines and tubes are seen. Cardiac silhouette is top normal. The lungs are clear. No evidence of pleural effusion or pneumothorax. IMPRESSION: No acute chest disease. ACT 112: Negative or not required by law. Echocardiogram Date: 02/06/22 EF: 55-60 LV Function: normal Other Findings: + LVH (moderate concentric) Valvular Disease: + AI (mild) elevated RVSP 40-[address] head/brain wo con CLINICAL HISTORY: fall, lac Technique: Contiguous axial CT images of the head were acquired from the base of the skull to the vertex without intravenous contrast administration. Images were viewed in brain, subdural and bone windows. Automated dose lowering techniques and/or adjustment according to patient size were utilized for this exam. Comparison: None available at the time of this dictation. Findings: Areas of decreased attenuation are present in the periventricular and subcortical white matter bilaterally consistent with small vessel ischemic disease. Generalized cerebral atrophy with commensurate enlargement of the ventricles, sulci, and cisterns is also present. There is no acute intracranial hemorrhage or evidence of acute territorial infarction. No shift of the midline structures, mass effect, or extra-axial abnormalities are shown. Atherosclerotic calcifications are present in the intracranial segments of the internal carotid arteries. Imaged portions of the paranasal sinuses and mastoid air cells are clear. The orbits appear normal. Soft tissue swelling is seen in the right calvarium. Impression: No acute intracranial hemorrhage or skull fractures. Scalp swelling is seen in the right calvarium. ACT 112: Negative or not required by law.
[2022-02-07] MEDS ORDERED: HYDROCORTISONE SOD SUCCINATE 100 MG/2 ML VIAL IV STA (09:12)
[2022-02-07] MEDS: lisinopril 2.5 MG TAB PO SCH ×2 (09:32→20:54)
[2022-02-07] MEDS ORDERED: HYDROCORTISONE SOD 100 MG in SYRINGE 0 ML IV ONE (10:00)
--- NOTE | 2022-02-07 10:24 | CT Scan Report ---
CT chest diagnostic wo con CLINICAL HISTORY: fever. r/o pneumonia TECHNIQUE: Multidetector row helical CT of the chest was performed. Coronal and sagittal reformations were obtained. Automated dose lowering techniques and/or adjustment according to patient size were u tilized for this exam. Comparison: None available at the time of this dictation. FINDINGS: Lungs and pleura: Bilateral lower lung atelectasis is seen with likely foci of consolidation as well. Heart and pericardium: Cardiomegaly is seen with biatrial enlargement. Vessels: The pulmonary trunk measures 35 mm. Mediastinum and helen: Subcentimeter lymph nodes are seen. Chest wall and lower neck: Unremarkable. Abdomen: Unremarkable. Bones: Degenerative changes in the thoracic spine. IMPRESSION: Lower lung airspace opacities likely represent atelectasis and superimposed pneumonia. Cardiomegaly a nd pulmonary hypertension are seen. ACT 112: Negative or not required by law. Electronically signed by: Dandre Peña M.D. 02/07/2022 10:23 AM
[2022-02-07 11:23] LABS: Appearance Urine Clear (Clear); Bacteria Urine Automated Negative (Negative); Bilirubin Urine Negative (Negative); Blood Urine Negative (Negative); Cast Urine Automated 0 /lpf (0-5); Color Urine Yellow; Glucose Urine UA Negative (Negative); Ketones Urine 1+ (Negative); Leukocyte Esterase Urine Trace (Negative); Nitrite Urine Negative (Negative); RBC Urine Automated 0-4 /hpf (0-4); Specific Gravity Urine 1.014 (1.000-1.030); Urobilinogen Urine Negative (Negative)
[2022-02-07 11:24] LABS: Protein Urine Trace (Negative)
[2022-02-07 11:42] LABS: Adenovirus PCR Not Detected (NotDetected); Bordetella parapertussis PCR Not Detected (NotDetected); Bordetella pertussis PCR Not Detected (NotDetected); Chlamydia pneumoniae PCR Not Detected (NotDetected); Coronavirus 229E PCR Not Detected (NotDetected); Coronavirus CoV-2 (COVID19)PCR Not Detected (NotDetected); Coronavirus HKU1 PCR Not Detected (NotDetected); Coronavirus NL63 PCR Not Detected (NotDetected); Coronavirus OC43PCR Not Detected (NotDetected); Human Metapneumovirus PCR Not Detected (NotDetected); Influenza A PCR Not Detected (NotDetected); Influenza B PCR Not Detected (NotDetected); Mycoplasma pneumoniae PCR Not Detected (NotDetected); Parainfluenza Virus 1 PCR Not Detected (NotDetected); Parainfluenza Virus 2 PCR Not Detected (NotDetected); Parainfluenza Virus 3 PCR Not Detected (NotDetected); Parainfluenza Virus 4 PCR Not Detected (NotDetected); Respiratory Syncytial VirusPCR Not Detected (NotDetected); Rhinovirus/Enterovirus PCR Not Detected (NotDetected)
[2022-02-07] MEDS ORDERED: PROPOFOL IV EMULSION 10 MG/ML 20 ML VIAL IV ONE (12:09)
[2022-02-07] MEDS ORDERED: fentaNYL citrate 100 MCG/2 ML VIAL ONE (12:09)
[2022-02-07] MEDS ORDERED: ONDANSETRON INJ 2 MG/ML 2 ML VIAL ONE (12:09)
[2022-02-07] MEDS ORDERED: PIPERACILL/TAZOBAC CONSULT ACTIVE PRN (12:35)
[2022-02-07] MEDS ORDERED: PIPERACILLIN/TAZOBACTAM 4.5 GM in DEXTROSE 5% 100 ML IV SCH (12:45)
[2022-02-07] MEDS ORDERED: PIPERACILLIN/TAZOBACTAM 3.375 GM in DEXTROSE 5% 100 ML IV ONE (12:45)
--- NOTE | 2022-02-07 12:46 | Hospitalist Progress Note ---
Date of Service February 07, 2022 Assessment & Plan (1) Syncope and collapse: Plan: - This is the 3rd event over the past several years - no prodrome - exact etiology unclear and etiology thought to be cardiogenic. Plan was for loop recorder insertion tomorrow (as no arrhythmia noted on property assessment monitor) - Patient noted to be hypoxic (86% upon arrival) and still requiring supplemental O2 (2-3L to maintain a pulse ox of 90%). She does not wear O2 at home - perhaps hypoxemia contributing?. Patient now with findings with PNA-- see below - did reach out to Cardiology to update them to determine if they still wish to proceed with loop recorder insertion with active infection (2) Pneumonia: Plan: - Pt hypoxic (86%) on arrival and has been requiring 2-3L NC to keep his pulse ox ~90% - did have leukocytosis upon arrival (which could have been reactive from fall/fractures) or steroid induced but could have been from infx - fever of 101 F on 02/06 - CT of the chest showing lower lung space disease likely representing superimposed pneumonia - Patient does have Bronchiectasis with a chronic cough but reports a change/increased x past 2-4 weeks - currently on Rocephin (for what was thought to be a UTI). Stop this and start Zosyn + Doxycycline (as need antipseudomonal coverage but also MRSA coverage in those with Bronchiectasis) along with atypical coverage - covid negative. obtain Biofire and MRSA nasal swab - Supplemental O2 to maintain a pulse ox of 92% - Obtain sputum culture if patient able to expectorate - Blood cultures ordered and pending - Initiate mucolytic agents and antitussives as needed -Did reach out to anesthesia regarding clinical concern for pneumonia and plan for surgical intervention today. They agree that would likely be best to postpone surgery until tomorrow with reassessment. Spoke with Dr. Kapoor with anesthesia who will reach out to ortho. (3) Pelvis fracture: Plan: comminuted fracture of the right pubic symphysis extending to the anterior superior pubic ramus, as well as a comminuted fracture of the right inferior pubic ramus. The acetabula are uninvolved - Yanez placed- continue management to gravity - Bedrest- maintain - No free fluid in pelvis noted on CT scan - follow HGB/HCT - Pain control tiered- Tylenol, oxy 5 prn, hydromorphone prn - Orthopedics consulted - appreciate assistance - plan is for nonsurgical management - WBAT, PT/OT eval (4) Olecranon fracture: Plan: Splinted by EMD - sensation and movement of fingers and hand intact - Ortho consulted, plan for ORIF (postponed given PNA) - patient is right hand dominant. (5) Laceration of head: Plan: From fall with head strike to driveway - Initial head non-con head negative - Neurologically intact- amnestic to event leading up to fall - Wound primary closure with miranda by EMD - Tetanus given (6) Polymyalgia rheumatica: Plan: Chronic- has been on steroids (prednisone)- since appears June 23 - Patient on low dose 2mg daily currently- continue - stress dose Solu-cortef given with plan to down taper accordingly (7) Renal insufficiency: Plan: CKD III- CRCL 33- chronic - renally dose medications when needed - avoid further nephrotoxic medications - stable- baseline [employer] 1.24-1.4 (8) Hypothyroidism: Plan: Continue Synthroid - TSH normal (9) Pre-diabetes: Plan: BG checks q6 hour while NPO - will add coverage if > 180 - hypoglycemic protocol in place - follow postoperative or with steroid increase (10) Hypercalcemia: Plan: Mild 10.4 no symptoms - hold calcium supplementation - ionized Ca++ WNL (11) Asthma: Plan: Pt w/ chronic asthma and bronchiectasis, does not wear home O2 - no evidence of acute exacerbation at this time but on IV Solu-Cortef and Nebulized treatments ordered - continue to follow (12) Osteoporosis: Plan: Continue vitamin D - Hold calcium - iCA level WNL (13) Vitamin D deficiency: Plan: - Vitamin D level WNL Plan: updated and Daughter (at bedside) case D/W Dr. Kapoor (anesthesia) and to be d/w Dr. Ron. Admission and Anticipated Discharge Date Admission Date: February 05, 2022 Subjective Patient seen on daily rounds today. Hospitalized 4/5 following a syncopal event. Exact etiology unclear. Unfortunately, sustained a right olecranon fracture along with a comminuted fracture of the right pubic ramus and inferior pubic ramus. Seen by orthopedics and pubic fracture deemed nonsurgical. Plan is for surgical intervention today for right olecranon fracture. Regarding the syncope, patient had no prodrome. Was walking from the mailbox to the car in the driveway. Unwitnessed fall but was nearby and reports she was "out for approximately 5 minutes". When she came to was not postictal. No loss of bowel or bladder function. No witnessed seizure activity. Seen by cardiology and plan was for insertion of a loop recorder tomorrow. With review of the records, patient noted to be hypoxic at 86% upon presentation. Currently requiring 2 to 3 L to keep her at 90%. Patient's white blood cell count was elevated at 17.56 upon arrival but does take chronic prednisone for PMR and thought to potentially be reactive given the fractures. Upon further questioning, she does report ongoing fatigue X 2 weeks. She has bronchiectasis and reports that her cough has been "different than usual". Very productive with green sputum at times. Did spike a fever of 101 F yesterday afternoon. Review of Systems Review of Systems: All systems reviewed and are unremarkable except as noted in HPI and below Denies headache, nasal congestion, sore throat, chest pain, shortness of breath, palpitations, orthopnea, PND, abdominal pain, nausea, vomiting, diarrhea, constipation, dysuria, hematuria, frequency, back pain, joint pain or swelling, easy bruising or bleeding, skin lesions or rashes. Physical Exam Physical Exam: General: Resting comfortably in her hospital bed. Does not appear ill or toxic. NAD. HEENT: Head is AT/NC. Buccal mucosa is moist and pink Neck: No JVD. Negative hepatojugular reflex Cardiac: RRR without M/G/R Lungs: breathing comfortably on supplemental O2. diffuse scattered rhonchi throughout with rales in the bases bilaterally and ? egophony in the B/L bases Abdomen: Normoactive X4. Soft and nontender in all quadrants. Extremities: RUE in a splint. Radial pulse intact. Cap RF +2. fine motor/dexterity intact. Neuro: A&O X4. Cranial nerves II through XII are grossly intact. No focal neuro deficits Skin: No obvious skin lesions or rashes Psych: Appropriate affect. Pleasant and cooperative Results & Data Results & Data ([facility]) Vital Signs (Past 12 Hours) Vital Signs Temp Pulse Pulse Resp BP Pulse Ox 02/07/22 12:00 36.8 C 81 20 160/63 H 90 02/07/22 09:05 77 02/07/22 08:00 37.0 C 75 16 139/71 93 02/07/22 03:37 37 C 66 18 163/71 H 94 Laboratory Results 02/07/22 05:41 02/07/22 05:41 PG Care Time/CCT Total # of Minutes Spent Total Time Spent with Patient: Total time spent is greater than 50% in coordination of care (as documented) at patient's floor/unit and/or counseling patient: Coding Level of Care Code 05218 Subseq Hosp Care Lvl 3 Diagnoses Syncope and collapse R55 Pelvis fracture S32.9XXA Olecranon fracture S52.023A Laceration of head S01.91XA Polymyalgia rheumatica M35.3 Renal insufficiency N28.9 Hypothyroidism E03.9 Pre-diabetes R73.03 Hypercalcemia E83.52 Asthma J45.909 Osteoporosis M81.0 Vitamin D deficiency E55.9 Pneumonia J18.9
[2022-02-07] MEDS: DOXYCYCLINE HYCLATE 100 MG in DEXTROSE 5% 100 ML IV SCH ×2 (14:23→21:15)
[2022-02-07] MEDS: ALBUT/IPRATROP 3MG/0.5MG NEB 3 ML VIAL NEB SCH ×2 (14:46→19:37)
--- NOTE | 2022-02-07 15:52 | Orthopedic Progress Note ---
Date of Service February 07, 2022 Assessment & Plan (1) Closed fracture of right elbow: We will hold off on any surgery today. She is currently treating with pneumonia. The elbow fracture is not an urgency. We can fix it up to 2 weeks after the acute trauma. We will see how she is doing tomorrow. If we have to delay the surgery a longer that would not be a problem. She is having more pain in her hip. I told her that this will heal on its own. Sometimes it can take 4 to 6 weeks before feeling better. She can be out of bed to a chair from my standpoint as pain allows. She will be n.p.o. past midnight tonight and will see how her lung function is tomorrow. (2) Closed pelvic fracture: Marya Venegas was seen and examined at bedside today. She was little disappointed. She has a pneumonia and she is unable to have her elbow fixed today. She is not having too much pain in her elbow. She is having more pain in her pelvis. She has not been out of bed yet. Review of Systems All systems reviewed & are unremarkable except as noted in HPI & below. Physical Exam On physical examination of the right elbow, there is a trauma splint in place. Examination of her pelvis reveals tenderness palpation of the pubic rami Results & Data Results & Data Laboratory Results . Diagnostic Findings . PG Care Time/CCT Total # of Minutes Spent Total Time Spent with Patient: Total time spent is greater than 50% in coordination of care (as documented) at patient's floor/unit and/or counseling patient: Coding Level of Care Code 19280 Subseq Hosp Care Lvl 2 Diagnoses Closed fracture of right elbow S42.401A Encounter type: initial encounter Closed pelvic fracture S32.82XA Encounter type: initial encounter Fracture alignment: without disruption of pelvic ring Pelvic bone location: multiple parts (1) Closed fracture of right elbow Encounter type: initial encounter Qualified Code(s): S42.401A - Unspecified fracture of lower end of right humerus, initial encounter for closed fracture (2) Closed pelvic fracture Encounter type: initial encounter Fracture alignment: without disruption of pelvic ring Pelvic bone location: multiple parts Qualified Code(s): S32.82XA - Multiple fractures of pelvis without disruption of pelvic ring, initial encounter for closed fracture
[2022-02-07] MEDS ORDERED: HYDROCORTISONE SOD SUCCINATE 100 MG/2 ML VIAL IV SCH (16:00)
[2022-02-07] MEDS: HYDROCORTISONE SOD 50 MG in SYRINGE 0 ML IV SCH ×2 (16:19→20:54)
--- NOTE | 2022-02-07 17:13 | Cardiology Progress Note ---
Date of Service February 07, 2022 Assessment & Plan (1) Syncope and collapse: Plan: 1. Syncope: She has had 3 widely spaced falls, these have spanned about 4 years in the first and the most recent or clearly associate with loss of consciousness, the other one perhaps a month ago may not have been and may have been presyncope. It is hard to tell from the description exactly what it is but does not sound like orthostasis and sound suspicious for an arrhythmia. Hypoxia could play a role but by itself that seems unlikely to cause 3 separate episodes of loss of consciousness. I think we definitely need some type of monitoring for an arrhythmia. She will be monitored here for several days and I would keep her on the monitor until she goes home. Prior to going home we should either use a 30-day event monitor or an implantable loop recorder. As long as she is on intravenous antibiotics infection risk should be minimal as this is a subcutaneous implant not an intravascular 1. With the infrequency of the events and the possibility that we may not picked up the next event with a 30-day monitor (due to difficulty in keeping the monitor in place for that long) I would favor an implantable loop recorder. I have not made definitive plans for device implant at this point, however it is a simple procedure and we could do it tomorrow or at a later date. We can decide in the morning. Admission and Anticipated Discharge Date Admission Date: February 05, 2022 Subjective She is feeling well today, she does not have lightheadedness or dizziness and no cardiovascular complaints. Physical Exam Physical Exam: Constitutional: Alert, cooperative and in no distress. HEENT: Unremarkable Neck: No jugular venous distention, carotid pulses are normal and equal bilaterally without bruits. Pulmonary: Clear to auscultation bilaterally. Cardiac: Regular rhythm with no murmur, gallop or rub. Abdomen: Soft, nontender with normal bowel sounds. Extremities: No edema. Distal pulses intact. Neurologic: No focal findings. Skin: No rash, ecchymoses or petechiae. Results & Data ([facility]) Vital Signs (Past 12 Hours) Vital Signs Temp Pulse Pulse Resp BP Pulse Ox 02/07/22 16:04 80 02/07/22 16:00 36.8 C 79 18 150/69 H 92 02/07/22 14:46 91 H 18 92 02/07/22 12:00 36.8 C 81 20 160/63 H 90 02/07/22 09:05 77 02/07/22 08:00 37.0 C 75 16 139/71 93 Laboratory Results CBC 02/07/22 Range/Units 05:41 WBC 14.91 H (4.8-10.8) K/uL RBC 3.17 L (4.2-5.4) M/uL Hgb 9.5 L (12.0-16.0) g/dL Hct 28.8 L (37-47) % Plt Count 270 (130-400) K/uL Neut # (Auto) 12.23 H (1.4-6.5) K/uL Lymph # (Auto) 1.15 L (1.2-3.4) K/uL [place] # (Auto) 1.25 H (0.11-0.59) K/uL Eos # (Auto) 0.21 (0-0.5) K/uL Baso # (Auto) 0.03 (0-0.2) K/uL Comprehensive Metabolic Panel 02/07/22 Range/Units 05:41 Sodium 137 (136-145) mmol/L Potassium 3.6 (3.5-5.1) mmol/L Chloride 103 (98-107) mmol/L Carbon Dioxide 27 (21-32) mmol/L BUN 15 (6-23) mg/dl Creatinine 1.30 H (0.6-1.2) mg/dl Glucose 106 H (70-99(Fasting)) mg/dl Calcium 7.8 L (8.5-10.1) mg/dl Intake and Output 02/07/22 02/07/22 02/07/22 06:59 14:59 22:59 Intake Total 999 1175 / 1175 Output Total 850 / 2775 1400 / 1400 Balance 150 / -165 -225 / -225 Intake: IV 999 1115 / 1115 Normosol-R 1,000 ml @ 80 mls/hr 999 / 1999 1000 / 1000 IV .[id number] [facility] Rx#:[id number] Piperacillin/Tazobactam 3.375 115 / 115 gm In Dextrose 5% 100 ml @ 230 mls/hr IV NOW ONE Rx#:[id number] Oral 60 / 60 Output: Urine Amount (Catheter) 850 / 2775 1400 / 1400 Yanez/Indwelling 850 / 2775 1400 / 1400 Other: Other Intake Source npo NPO Weight 80.7 kg 80.7 kg Weight Measurement Method Built in [facility] Patient Weight 02/08/22 06:59 Weight 80.7 kg Diagnostic Findings Telemetry: Sinus rhythm, rate generally 60 to 70 bpm. PG Care Time/CCT Total # of Minutes Spent Total Time Spent with Patient: Total time spent is greater than 50% in coordination of care (as documented) at patient's floor/unit and/or counseling patient: Coding Level of Care Code 08103 Subseq Hosp Care Lvl 2 Diagnoses Syncope and collapse R55
[2022-02-07] MEDS: PIPERACILLIN/TAZOBACTAM 3.375 GM in DEXTROSE 5% 100 ML IV SCH (17:26)
[2022-02-07] MEDS: guaiFENesin 600 MG TABCR PO SCH (20:53)
[2022-02-07] MEDS: SENNA 8.6 MG TAB PO SCH (20:53)
[2022-02-07] MEDS: HYDROmorphone INJ 0.5 MG/0.5 ML SYR IV PRN (21:15)
[2022-02-08] MEDS: NORMOSOL-R 1,000 ML IV SCH ×3 (04:12→23:45)
[2022-02-08] MEDS: PIPERACILLIN/TAZOBACTAM 3.375 GM in DEXTROSE 5% 100 ML IV SCH ×3 (04:13→18:44)
[2022-02-08] MEDS: LEVOTHYROXINE SODIUM 100 MCG TABLET PO SCH (06:24)
[2022-02-08 06:43] LABS: Basophils # (auto) 0.01 K/uL (0-0.2); Basophils % (auto) 0.1 %; Eosinophils # (auto) 0.02 K/uL (0-0.5); Eosinophils % (auto) 0.1 %; Hematocrit (blood only) 27.6 % (37-47); Hemoglobin 9.3 g/dL (12.0-16.0); Immature Granulocytes # (auto) 0.07 K/uL (0.00-0.02); Immature Granulocytes % (auto) 0.4 %; Lymphocytes # (auto) 1.22 K/uL (1.2-3.4); Lymphocytes % (auto) 6.3 %; Mean Corpuscular Hemoglobin 30.5 pg (25-34); Mean Corpuscular Hgb Conc 33.7 g/dL (32-36); Mean Corpuscular Volume 90.5 fL (80-100); Mean Platelet Volume 11.4 fL (7.4-10.4); Monocytes # (auto) 1.53 K/uL (0.11-0.59); Monocytes % (auto) 7.9 %; Neutrophils # (auto) 16.45 K/uL (1.4-6.5); Neutrophils % (auto) 85.2 %; Platelet Count 266 K/uL (130-400); RDW Coefficient of Variation 14.6 % (11.5-14.5); RDW Standard Deviation 48.2 fL (36.4-46.3); Red Blood Count 3.05 M/uL (4.2-5.4)
[2022-02-08] MEDS: ALBUT/IPRATROP 3MG/0.5MG NEB 3 ML VIAL NEB SCH ×4 (06:59→20:01)
[2022-02-08 07:04] LABS: BUN Creatinine Ratio 15.3 (10-20); Creatinine Clr Calc Pharmacy 33.8 ml/min; Est GFR (African American) 45.9 ml/min; Est GFR (Non-African American) 39.6 ml/min; Magnesium 2.3 mg/dl (1.7-2.4); Potassium 3.3 mmol/L (3.5-5.1)
[2022-02-08] MEDS: lisinopril 2.5 MG TAB PO SCH ×2 (07:35→21:10)
[2022-02-08] MEDS: guaiFENesin 600 MG TABCR PO SCH ×2 (07:36→21:09)
[2022-02-08] MEDS: CHOLECALCIFEROL 1,000 UNITS 25 MCG TAB PO SCH (07:36)
[2022-02-08] MEDS: predniSONE 20 MG TAB PO SCH (07:36)
[2022-02-08] MEDS: POLYETHYLENE (MIRALAX) 17 GM PACK PO SCH (07:37)
[2022-02-08] MEDS ORDERED: POTASSIUM CHLORIDE CRTAB 20 MEQ TABCR PO STA (07:40)
--- NOTE | 2022-02-08 08:25 | Hospitalist Progress Note ---
Date of Service February 08, 2022 Assessment & Plan (1) Syncope and collapse: Plan: - This is the 3rd event over the past several years - no prodrome - exact etiology unclear and etiology thought to be cardiogenic. No arrhythmia on bilingual call center representative. For Loop recorder today - Patient noted to be hypoxic (86% upon arrival) and still requiring supplemental O2 (2-3L to maintain a pulse ox of 90%) when seen on 02/07. She does not wear O2 at home - perhaps hypoxemia contributing?. Patient now with findings with PNA-- see below (2) Pneumonia: Plan: - Pt hypoxic (86%) on arrival requiring 2-3L NC to keep his pulse ox ~90% - did have leukocytosis upon arrival (which could have been reactive from fall/fractures) or steroid induced but could have been from infx - fever of 101 F on 02/06 - CT of the chest showing lower lung space disease likely representing superimposed pneumonia - Patient does have Bronchiectasis with a chronic cough but reports a change/increased x past 2-4 weeks - Initially on Rocephin (for what was thought to be a UTI although UC showing NG). Changed to Zosyn + Doxycycline (as needed antipseudomonal coverage but also MRSA coverage in those with Bronchiectasis) along with atypical coverage - MRSA nasal swab negative but continue Doxy for the atypical coverage - covid negative. - biofire negative - chest PT - Acapella flutter valve ordered but patient unable to utilize as can not close mouth over device given her chronic bells palsy - sputum culture ordered-- pending - Blood cultures ordered and pending - continue mucolytic agents and antitussives as needed - showing favorable response-- no longer needing supplemental O2 - did update cardiology, Ortho and Anesthesia. Given favorable response, I feel that she is an acceptable risk to take to surgery today. (3) Pelvis fracture: Plan: comminuted fracture of the right pubic symphysis extending to the anterior superior pubic ramus, as well as a comminuted fracture of the right inferior pubic ramus. The acetabula are uninvolved - Yanez placed- continue management to gravity - Bedrest- maintain - No free fluid in pelvis noted on CT scan - follow HGB/HCT - Pain control tiered- Tylenol, oxy 5 prn, hydromorphone prn - Orthopedics consulted - appreciate assistance - plan is for nonsurgical management - WBAT, PT/OT eval (4) Olecranon fracture: Plan: Splinted by EMD - sensation and movement of fingers and hand intact - Ortho consulted, plan for ORIF likely today - patient is right hand dominant. 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 - perhaps exacerbated given lack of re-wetting drops while in house and having nothing to preoccupy her - resume artificial tears - will monitor - CT of the head done upon arrival - could this be exacerbated by the head trauma?-- perhaps but no other conc ussion symptoms (7) Polymyalgia rheumatica: Plan: Chronic- has been on steroids (prednisone)- since appears June 23 - Patient on low dose 2mg daily currently- continue - stress dose Solu-cortef given with plan to down taper accordingly given need for surgical intervention (8) Renal insufficiency: Plan: CKD III- CRCL 33- chronic - renally dose medications when needed - avoid further nephrotoxic medications - stable- baseline TOWER CLIMBER 1.24-1.4 (9) Hypothyroidism: Plan: Continue Synthroid - TSH normal (10) Pre-diabetes: Plan: - hypoglycemic protocol in place - BS currently acceptable even in the presence of steroids (102 - 119 - 112 - 105 - 135 - 142 - 106 - 122) (11) Hypercalcemia: Plan: Mild 10.4 no symptoms - hold calcium supplementation - ionized Ca++ WNL (12) Asthma: Plan: Pt w/ chronic asthma and bronchiectasis, does not wear home O2 - no evidence of acute exacerbation at this time but on IV Solu-Cortef and Nebulized treatments ordered - continue to follow (13) Osteoporosis: Plan: Continue vitamin D - Hold calcium - iCA level WNL (14) Vitamin D deficiency: Plan: - Vitamin D level WNL Plan: updated and Daughter (at bedside) case D/W Anesthesia, Cardiology and Orthopedics. Will d/w Dr. Ron. Admission and Anticipated Discharge Date Admission Date: February 05, 2022 Subjective Patient seen on daily rounds today. In regards to her breathing, was able to cough up a copious amounts of sputum. Was requiring 3L to keep her pulse ox at 90%. Today is on 1L with a pulse ox of 96%. Chest PT ordered. Patient tolerating. Acapella flutter valve ordered; however, patient struggling given her history of Lawrence's palsy and inability to close her mouth around the device. Complaining of Diplopia. This predates this hospitalization but seems to be more frequent as would wax and wane prior to this. Has seen her Piece Maker for this in the past. Has been using rewetting drops. Abates when closing either eye. Typically uses re-wetting drops at home. Review of Systems Review of Systems: All systems reviewed and are unremarkable except as noted in HPI and below Denies fevers, chills, headache, nasal congestion, sore throat, cough, chest pain, shortness of breath, palpitations, orthopnea, PND, abdominal pain, nausea, vomiting, diarrhea, constipation, dysuria, hematuria, frequency, back pain, joint pain or swelling, easy bruising or bleeding, skin lesions or rashes. Physical Exam Physical Exam: General: Resting comfortably in her hospital bed. Does not appear ill or toxic. NAD. HEENT: Head is AT/NC. Buccal mucosa is moist and pink. Left facial nerve palsy. Neck: No JVD. Negative hepatojugular reflex Cardiac: RRR without M/G/R Lungs: breathing comfortably on supplemental O2. diffuse scattered rhonchi throughout with rales in the bases bilaterally and ? egophony in the B/L bases Abdomen: Normoactive X4. Soft and nontender in all quadrants. Extremities: RUE in a splint. Radial pulse intact. Cap RF +2. fine motor/dexterity intact. Neuro: A&O X4. Cranial nerves II through XII are grossly intact. No focal neuro deficits Skin: No obvious skin lesions or rashes Psych: Appropriate affect. Pleasant and cooperative Results & Data Results & Data ([facility]) Vital Signs (Past 12 Hours) Vital Signs Temp Pulse Pulse Resp BP Pulse Ox Pulse Ox 02/08/22 07:20 36.6 C 79 20 172/67 H 96 02/08/22 07:02 70 18 95 02/08/22 03:45 36.9 C 66 18 173/64 H 93 02/08/22 00:25 72 02/07/22 22:06 36.6 C 78 18 150/63 H 92 02/07/22 20:54 95 Laboratory Results 02/08/22 05:54 02/08/22 06:00 PG Care Time/CCT Total # of Minutes Spent Total Time Spent with Patient: Total time spent is greater than 50% in coordination of care (as documented) at patient's floor/unit and/or counseling patient: Coding Level of Care Code 76786 Subseq Hosp Care Lvl 2 Diagnoses Syncope and collapse R55 Pneumonia J18.9 Pelvis fracture S32.9XXA Olecranon fracture S52.023A Laceration of head S01.91XA Polymyalgia rheumatica M35.3 Renal insufficiency N28.9 Hypothyroidism E03.9 Pre-diabetes R73.03 Hypercalcemia E83.52 Asthma J45.909 Osteoporosis M81.0 Vitamin D deficiency E55.9 Diplopia H53.2
[2022-02-08] MEDS: DOXYCYCLINE HYCLATE 100 MG in DEXTROSE 5% 100 ML IV SCH ×2 (08:32→21:27)
[2022-02-08] MEDS ORDERED: ARTIFICIAL TEARS OP PRN (11:35)
--- NOTE | 2022-02-08 12:07 | Cardiology Progress Note ---
Date of Service February 08, 2022 Assessment & Plan (1) Syncope and collapse: Plan: 1. Syncope: She has had 3 widely spaced falls, these have spanned about 4 years and the first and the most recent were clearly associated with loss of consciousness, the other one perhaps a month ago may not have been and may have been presyncope. It is hard to tell from the description exactly what it is but it does not sound like orthostasis and sounds suspicious for an arrhythmia. Hypoxia could play a role but by itself that seems unlikely to cause 3 separate episodes of loss of consciousness without other symptoms. I think we definitely need some type of monitoring for an arrhythmia. She has been monitored here for several days without a diagnostic arrhythmia. We should either use a 30-day event monitor or an implantable loop recorder. As long as she is on intravenous antibiotics infection risk should be minimal as this is a subcutaneous implant not an intravascular 1. With the infrequency of the events and the possibility that we may not picked up the next event with a 30-day monitor (due to difficulty in keeping the monitor in place for that long) I would favor an implantable loop recorder. I will plan to do that around noon or little after today. I discussed it with the patient, her and her daughter in the room. All are agreeable. Admission and Anticipated Discharge Date Admission Date: February 05, 2022 Subjective She is feeling well today, she is waiting for her elbow surgery. No further episodes of lightheadedness, dizziness or syncope. Physical Exam Physical Exam: Constitutional: Alert, cooperative and in no distress. HEENT: Unremarkable Neck: No jugular venous distention, carotid pulses are normal and equal bilaterally without bruits. Pulmonary: Clear to auscultation bilaterally. Cardiac: Regular rhythm with no murmur, gallop or rub. Abdomen: Soft, nontender with normal bowel sounds. Extremities: No edema. Distal pulses intact. Neurologic: No focal findings. Skin: No rash, ecchymoses or petechiae. Results & Data ([facility]) Vital Signs (Past 12 Hours) Vital Signs Temp Pulse Pulse Resp BP Pulse Ox 02/08/22 11:27 36.9 C 86 20 167/68 H 91 02/08/22 11:23 67 02/08/22 10:40 62 18 94 02/08/22 08:35 88 02/08/22 07:20 36.6 C 79 20 172/67 H 96 02/08/22 07:02 70 18 95 02/08/22 03:45 36.9 C 66 18 173/64 H 93 02/08/22 00:25 72 Laboratory Results CBC 02/08/22 Range/Units 05:54 WBC 19.30 H (4.8-10.8) K/uL RBC 3.05 L (4.2-5.4) M/uL Hgb 9.3 L (12.0-16.0) g/dL Hct 27.6 L (37-47) % Plt Count 266 (130-400) K/uL Neut # (Auto) 16.45 H (1.4-6.5) K/uL Lymph # (Auto) 1.22 (1.2-3.4) K/uL [place] # (Auto) 1.53 H (0.11-0.59) K/uL Eos # (Auto) 0.02 (0-0.5) K/uL Baso # (Auto) 0.01 (0-0.2) K/uL Comprehensive Metabolic Panel 02/08/22 Range/Units 06:00 Sodium 140 (136-145) mmol/L Potassium 3.3 L (3.5-5.1) mmol/L Chloride 108 H (98-107) mmol/L Carbon Dioxide 25 (21-32) mmol/L BUN 19 (6-23) mg/dl Creatinine 1.24 H (0.6-1.2) mg/dl Glucose 122 H (70-99(Fasting)) mg/dl Calcium 8.0 L (8.5-10.1) mg/dl Intake and Output 02/07/22 02/08/22 02/08/22 22:59 06:59 14:59 Intake Total 910 / 3310 1225 / 3310 782.333 / 782.333 Output Total 1600 / 4650 1650 / 4650 Balance -690 / -1340 -425 / -1340 782.333 / 782.333 Intake: IV 110 / 2450 1225 / 2450 782.333 / 782.333 Doxycycline Hyclate 100 mg In 110 / 220 110 / 220 110 / 110 Dextrose 5% 100 ml @ 50 mls/hr IV Q12 [facility], [facility]–1983 Rx#:[id number] Normosol-R 1,000 ml @ 80 mls/hr 999 / 1999 557.333 / 557.333 IV .[id number] LEROY Rx#:[id number] Piperacillin/Tazobactam 3.375 115 / 115 115 / 115 gm In Dextrose 5% 100 ml @ 28. 75 mls/hr IV Q8H LEROY Rx#: [id number] Oral 800 / 860 Output: Urine Amount (Catheter) 1600 / 4650 1650 / 4650 Yanez/Indwelling 1600 / 4650 1650 / 4650 Other: Other Intake Source NPO Weight 79.4 kg Weight Measurement Method Built in [facility] Diagnostic Findings Telemetry: Sinus rhythm, PACs, PVCs and one couplet. No significant rate change or arrhythmia. PG Care Time/CCT Total # of Minutes Spent Total Time Spent with Patient: Total time spent is greater than 50% in coordination of care (as documented) at patient's floor/unit and/or counseling patient: Coding Level of Care Code 75063 Subseq Hosp Care Lvl 2 Diagnoses Syncope and collapse R55
[2022-02-08] MEDS ORDERED: LIDOCAINE 1% LOCAL 20 ML VIAL ONE (12:25)
[2022-02-08] MEDS ORDERED: BACITRACIN OINT 0.9 GM PKT ONE (12:57)
[2022-02-08] MEDS ORDERED: fentaNYL citrate 100 MCG/2 ML VIAL ONE ×3 (13:07→17:18)
--- NOTE | 2022-02-08 13:08 | Electrophysiology Report ---
Date of Service February 08, 2022 Electrophysiology Procedure Electrophysiology Procedure Report Preoperative diagnosis: Syncope Postoperative diagnosis: Same Procedure: Loop recorder implantation Surgeon: Alejandro Snider MD Estimated blood loss: 2 cc Complications: None Disposition: Die Trimmer recovery Procedure details: After obtaining informed consent for the procedure, the patient was brought to the laboratory having had nothing by mouth after midnight. The patient was prepped and draped in the standard sterile manner for a loop recorder implantation. An area at the fourth left intercostal space and 1 cm left of the left sternal border was infiltrated with 1% lidocaine local anesthetic and a 0.5 cm incision was made through the skin. Using the loop recorder insertion tool the loop recorder was inserted through the incision at a 45 downward and leftward angle. The incision was closed with a subcutaneous continuous closure of 4-0 Vicryl followed by a running subcuticular skin closure of 4-0 Vicryl. Steri-Strips were applied and bacitracin ointment was placed on the incision. A dressing was applied. [facility] [place]rophysiology codes Indication for Procedure (1) Syncope and collapse: Implantable Monitors Procedure 1: Implantable Monitors: [id number] Loop Recorder Implant
--- NOTE | 2022-02-08 14:03 | History & Physical Bridge Note ---
Date of Service February 08, 2022 History & Physical Bridge Note I have examined the patient, reviewed the History & Physical and in the interval since the performance of the History & Physical I have noted the following changes of clinical significance: no changes noted
[2022-02-08] MEDS ORDERED: ONDANSETRON INJ 2 MG/ML 2 ML VIAL IV PRN (15:24)
[2022-02-08] MEDS ORDERED: ePHEDrine sulfate 50 MG/ML AMP IV PRN (15:24)
[2022-02-08] MEDS ORDERED: ATROPINE SULFATE 0.1 MG/ML 10ML SYR IV PRN (15:24)
--- NOTE | 2022-02-08 15:28 | Anesthesiology Consultation ---
Date of Service February 08, 2022 Assessment & Plan (1) Encounter for pre-operative examination: Chart Review Chart Review: Acceptable Risk for Surgery and Patient NOT seen in Pre Admission Testing Consults Requested none History Surgery Operation Date: 02/07/22 13:30 Proposed Procedures p Left Olecranon Open Reduction Internal Fixation - Kaz Temple DO Operation Date: 02/08/22 08:10 Proposed Procedures p Left Olecranon Open Reduction Internal Fixation - Kaz Temple DO Operation Date: 02/08/22 15:00 Proposed Procedures p Loop Insertion - Alejandro Snider MD Height/Weight Height: 5 ft 4 in Weight: 79.4 kg Allergies Allergy/AdvReac Type Severity Reaction Status Date / Time fexofenadine AdvReac Unknown Diarrhea Verified 02/05/22 17:36 Medications Home Medications Medication Instructions Recorded Confirmed Last Taken aspirin 81 mg tablet,delayed 81 mg PO QAM 07/01/18 02/05/22 08/01/21 release calcium carbonate 600 mg-vitamin 1 tab PO QAM tab 07/01/18 02/05/22 08/01/21 D3 20 mcg (800 unit) chewable tablet (Caltrate 600 plus D) cod liver oil 1 cap PO QAM 07/01/18 02/05/22 08/01/21 cholecalciferol (vitamin D3) 25 25 mcg PO QAM 07/16/21 02/05/22 08/01/21 mcg (1,000 unit) tablet (Vitamin D3) cranberry extract 500 mg tablet 500 mg PO QAM 07/16/21 02/05/22 Unknown cyanocobalamin (vitamin B-12) 1,000 mcg PO QAM 07/16/21 02/05/22 08/01/21 1,000 mcg tablet,extended release (Vitamin B-12 ER) magnesium 250 mg tablet 250 mg PO BID 07/16/21 02/05/22 08/01/21 turmeric root extract 500 mg 500 mg PO QAM 07/16/21 02/05/22 Unknown capsule vitamin B complex 1 tab PO 3XWK 07/16/21 02/05/22 08/01/21 albuterol sulfate 90 mcg/actuation 1 - 2 puff INH Q6H PRN #8.5 gm 08/01/21 02/05/22 08/02/21 aerosol inhaler (ProAir HFA) levothyroxine 100 mcg tablet 100 mcg PO QAM #90 tab 12/04/21 02/05/22 Unknown (Synthroid) lisinopril 2.5 mg tablet 1.25 mg PO BID #90 tab 12/04/21 02/05/22 Unknown solifenacin 10 mg tablet (Vesicare) 10 mg PO DAILY #30 tab 12/11/21 02/05/22 Unknown prednisone 1 mg tablet 2 mg PO DAILY tab 01/30/22 02/05/22 Unknown Active Medications Generic Name Dose Route Start Last Admin Trade Name Freq PRN Reason Stop Dose Admin Acetaminophen 650 mg 02/05/22 20:54 02/07/22 16:20 Acetaminophen 325 Mg Tab PO 03/07/22 20:53 650 mg Q6H PRN Administration mild to moderate Pain & Pre PT Albuterol 3 ml 02/07/22 15:00 02/08/22 15:20 Albut/Ipratrop 3mg/0.5mg Neb 3 Ml Vial NEB 03/09/22 14:59 Not Given QIDR LEROY Protocol Guaifenesin 600 mg 02/07/22 21:00 02/08/22 07:36 Guaifenesin 600 Mg Tabcr PO 03/09/22 20:59 600 mg Q12 LEROY Administration Hydromorphone HCl 0.25 mg 02/05/22 20:54 02/07/22 21:15 Hydromorphone Inj 0.5 Mg/0.5 Ml Syr IV 02/19/22 20:53 0.25 mg Q6H PRN Administration Severe Pain Parenteral Electrolytes 1,000 mls @ 80 mls/hr 02/05/22 19:17 02/08/22 11:10 Plasma-Lyte A IV 03/07/22 19:16 80 mls/hr .[id number] LEROY Administration Doxycycline Hyclate 100 mg/ 110 mls @ 50 mls/hr 02/07/22 13:00 02/08/22 11:07 Dextrose IV 02/14/22 12:59 Infused Q12 LEROY Infusion Protocol Piperacillin Sod/Tazobactam 115 mls @ 28.75 mls/hr 02/07/22 18:00 02/08/22 12:44 Sod 3.375 gm/ Dextrose IV 02/14/22 17:59 Not Given Q8H LEROY Protocol Levothyroxine Sodium 100 mcg 02/06/22 06:30 02/08/22 06:24 Levothyroxine Sodium 100 Mcg Tablet PO 03/08/22 06:29 100 mcg DAILYBB LEROY Administration Lisinopril 1.25 mg 02/05/22 21:00 02/08/22 07:35 Lisinopril 2.5 Mg Tab PO 03/07/22 20:59 1.25 mg BID LEROY Administration Oxycodone HCl 5 mg 02/05/22 20:54 02/07/22 05:07 Oxycodone Hcl Ir 5 Mg Tab (Immediate Release) PO 02/19/22 20:53 5 mg Q6 PRN Administration MODERATE Pain (4,5,6) & Pre PT Polyethylene Glycol 17 gm 02/06/22 09:00 02/08/22 07:37 Polyethylene (Miralax) 17 Gm Pack PO 03/08/22 08:59 17 gm DAILY LEROY Administration Prednisone 40 mg 02/08/22 09:00 02/08/22 07:36 Prednisone 20 Mg Tab PO 03/10/22 08:59 40 mg DAILY LEROY Administration Sennosides 17.2 mg 02/05/22 21:00 02/07/22 20:53 Senna 8.6 Mg Tab PO 03/07/22 20:59 17.2 mg HS LEROY Administration Vitamin D 1,000 units 02/06/22 09:00 02/08/22 07:36 Cholecalciferol 1,000 Units 25 Mcg Tab PO 03/08/22 08:59 1,000 units QAM LEROY Administration NPO Date Last Intake of Fluids: 02/07/22 Time Last Intake of Fluids: 20:00 Last Intake of Fluids Comment: sip of water w/meds Date Last Intake of Solids: 02/07/22 Time Last Intake of Solids: 18:00 Past Medical History Medical History Anemia Lawrence's palsy ~2003 Hx of basal cell carcinoma Hx of bronchiectasis follows with Pulmonary [facility] Hypothyroidism Osteoarthritis Polymyalgia rheumatica Pre-diabetes monitors Renal insufficiency PCP monitoring Solitary pulmonary nodule Patient having diplopia. Loop recorder placed today to work up syncopal events. (1) Syncope and collapse: Plan: - This is the 3rd event over the past several years - no prodrome - exact etiology unclear and etiology thought to be cardiogenic. No arrhythmia on monitor technician. For Loop recorder today - Patient noted to be hypoxic (86% upon arrival) and still requiring supplemental O2 (2-3L to maintain a pulse ox of 90%) when seen on 02/07. She does not wear O2 at home - perhaps hypoxemia contributing?. Patient now with findings with PNA-- see below (2) Pneumonia: Plan: - Pt hypoxic (86%) on arrival requiring 2-3L NC to keep his pulse ox ~90% - did have leukocytosis upon arrival (which could have been reactive from fall/fractures) or steroid induced but could have been from infx - fever of 101 F on 02/06 - CT of the chest showing lower lung space disease likely representing superimposed pneumonia - Patient does have Bronchiectasis with a chronic cough but reports a c hange/increased x past 2-4 weeks - Initially on Rocephin (for what was thought to be a UTI although UC showing NG). Changed to Zosyn + Doxycycline (as needed antipseudomonal coverage but also MRSA coverage in those with Bronchiectasis) along with atypical coverage Past Family History Family History Mother Myocardial infarction Hypertension Family/Other Thyroid disorder Brother Thyroid disorder Sister Thyroid disorder Other Diabetes Heart disease No family history of adverse response to anesthesia Denies family history of Ovarian cancer Prostate cancer Breast cancer Colorectal cancer Past Surgical History Surgical History Hx of skin graft S/P appendectomy S/P blepharoplasty Left S/P cataract surgery bilateral S/P cholecystectomy S/P colonoscopy S/P parathyroidectomy r/t hypercalcemia S/P right knee arthroscopy Social History Smoking Status: Former smoker tobacco type: cigarettes Hx Alcohol Use: Yes Alcohol type: wine alcohol intake frequency: a few times a week Hx Substance Use: No substance use type: does not use Physical Exam Vital Signs Last Vital Signs Temp 36.8 C 02/08/22 14:20 Pulse 84 02/08/22 14:20 Resp 18 02/08/22 14:20 BP 181/65 H 02/08/22 14:20 Pulse Ox 94 02/08/22 14:20 Testing Laboratory Results 02/08/22 05:54 02/08/22 06:00 PT 10.5 Seconds (9.0-12.0) 02/05/22 15:14 INR 1.0 (0.9-1.1) 02/05/22 15:14 APTT 22.2 Seconds (21.0-31.0) 02/05/22 15:14 Urine Color Yellow 02/07/22 10:45 Urine Appearance Clear (Clear) 02/07/22 10:45 Urine pH 8.0 (4.5-7.5) H 02/07/22 10:45 Ur Specific [place] 1.014 (1.000-1.030) 02/07/22 10:45 Urine Protein Trace (Negative) H 02/07/22 10:45 Urine Glucose (UA) Negative (Negative) 02/07/22 10:45 Urine Ketones 1+ (Negative) H 02/07/22 10:45 Urine Nitrite Negative (Negative) 02/07/22 10:45 Ur Leukocyte Esterase Trace (Negative) H 02/07/22 10:45 Urine WBC (Auto) 5-10 /hpf (0-5) H 02/07/22 10:45 Urine RBC (Auto) 0-4 /hpf (0-4) 02/07/22 10:45 U Hyaline Cast (Auto) 0 /lpf (0-5) 02/07/22 10:45 U Epithel Cells (Auto) 10-20 /lpf (0-5) H 02/07/22 10:45 Urine Bacteria (Auto) Negative (Negative) 02/07/22 10:45 Blood Type A Positive 02/05/22 19:16 Antibody Screen NEGATIVE 02/05/22 19:16 02/07/22 10:45 Urine Culture - Preliminary Urine,Indwelling Cath No growth - Less than 1,000 colonies/mL, Final report to follow. 02/07/22 14:11 Gram Stain - Final Sputum, Expectorated Sputum Culture - Preliminary Moderate normal katya present, final report to follow. 02/06/22 18:04 Aerobic Blood Culture - Preliminary Blood No growth in Aerobic bottle after 24 hours. Anaerobic Blood Culture - Preliminary No growth in Anaerobic bottle after 24 hours. 02/06/22 18:05 Aerobic Blood Culture - Preliminary Blood No growth in Aerobic bottle after 24 hours. Anaerobic Blood Culture - Preliminary No growth in Anaerobic bottle after 24 hours. 02/05/22 Unknown Urine Culture - Final Urine,Clean Catch Three types of organisms present, all high counts. Repeat collection recommended. No further identifications or sensitivities to follow. 02/08/22 02/08/22 11:43 07:26 POC Glucose 152 H 114 H Electrocardiogram Date: 02/05/22 Chest X-Ray Date: 02/05/22 Echocardiogram Date: 02/06/22 EF: 55-60 LV Function: normal Other Findings: + LVH (moderate concentric) Valvular Disease: + AI (mild)
[2022-02-08] MEDS ORDERED: BUPIVACAINE 0.5 % 5 MG/1 ML MPF 30ML VIAL ONE (15:45)
[2022-02-08] MEDS ORDERED: HYDROmorphone INJ 1 MG/ML SYRINGE ONE (16:14)
[2022-02-08] MEDS ORDERED: LIDOCAINE 2% 2 ML VIAL/AMP(20MG/ML) INFIL ONE (16:14)
[2022-02-08] MEDS ORDERED: PROPOFOL IV EMULSION 10 MG/ML 20 ML VIAL IV ONE (16:14)
[2022-02-08] MEDS ORDERED: ONDANSETRON INJ 2 MG/ML 2 ML VIAL ONE (16:14)
[2022-02-08] MEDS ORDERED: LABETALOL HCL IV 5 MG/ML 20ML IV ONE (16:40)
--- NOTE | 2022-02-08 17:11 | Operative Report ---
PG Post Operative Report Pre & Post Diagnosis Operation Date: 02/07/22 13:30 <No data on this case meets the specified criteria> Operation Date: 02/08/22 08:10 Pre-Op Diagnosis: right olecranon fracture Post-Op Diagnosis: right olecranon fracture Operation Date: 02/08/22 15:00 <No data on this case meets the specified criteria> I identified the patient and participated in the time-out.: Yes Procedure Operation Date: 02/07/22 13:30 <No data on this case meets the specified criteria> Operation Date: 02/08/22 08:10 Actual Procedures p right Olecranon Open Reduction Internal Fixation(Right) - Kaz Temple DO Operation Date: 02/08/22 15:00 Actual Procedures p Loop Insertion - Alejandro Snider MD Surgeon Kaz Temple DO Phlebotomy Director Kaz Palafox PAC Estimated Blood Loss 10 Findings Consistent with Post-Op Diagnosis Specimens None Complications none Disposition Disposition: Recovery Room Description of Procedure On February 08, 2022 Rubi was brought in from her hospital room to the preoperative holding area. The operative extremity identified and signed. She was taken back to the operating room and laid on the table in supine position. She was put under general anesthesia. She was put in the lateral decubitus position. The right elbow was prepped and draped in sterile fashion. A timeout was done. The patient and the operative extremity was properly identified. A longitudinal incision was made directly over the olecranon and down the proximal half of the ulna. Dissection was taken down to the bone and the fracture was easily identified. It was a very comminuted fracture of the olecranon. The ulna was skeletonized with the carcamo elevator. The joint was then washed out with bulb syringe. The bone quality was poor and the fracture was in multiple fragments. I decided to use the plate to reduce the fracture. I used a [employer]ynthe[employer] olecranon plate. The plate was placed. A single compression screw was placed distally and a long locking screw was placed proximally. Fluoroscopic images showed near anatomic alignment. Suture was placed around several of the comminuted fragments and tied to the plate. The remaining locking screws were then placed. Final fluoroscopic images showed near anatomic alignment. The elbow was brought through a full range of motion and there were no screws in the joint. The wound was then irrigated. The skin was closed with 2-0 Vicryl and miranda. She was placed in a posterior splint. She was then extubated and transferred to a [facility]. She was taken to the postanesthesia care unit in stable condition. She tolerated the procedure well. I attest to the content of the Intraoperative Record and any orders documented therein. Any exceptions are noted below.
--- NOTE | 2022-02-08 17:28 | Fluoroscopy Report ---
FL elbow RT 2V CLINICAL HISTORY: RIGHT OLECRANON ORIF COMPARISON STUDY: Right elbow 02/05/2022. FLUOROSCOPY TIME: 30 seconds. FINDINGS: 2 fluoroscopic spot images of the right elbow demonstrate open reduction and internal fixat ion of the olecranon fracture with a cortical plate and screws. The hardware appears intact. Alignmen t is near-anatomic. IMPRESSION: Fluoroscopic assistance provided for internal fixation of a right olecranon fracture. ACT 112: Negative or not required by law. Electronically signed by: Nader Sinha M.D. 02/08/2022 5:27 PM
[2022-02-08] MEDS: fentaNYL citrate 100 MCG/2 ML VIAL IV PRN ×3 (17:31→17:58)
[2022-02-08] MEDS: LABETALOL HCL IV 5 MG/ML 20ML IV PRN ×2 (17:55→18:03)
[2022-02-08] MEDS ORDERED: oxyCODONE HCL IR 5 MG TAB (IMMEDIATE RELEASE) PO PRN (18:24)
[2022-02-08] MEDS: oxyCODONE HCL IR 5 MG TAB (IMMEDIATE RELEASE) PO PRN (19:33)
[2022-02-08] MEDS: SENNA 8.6 MG TAB PO SCH (21:11)
[2022-02-08] MEDS: HYDROmorphone INJ 0.5 MG/0.5 ML SYR IV PRN (22:27)
--- NOTE | 2022-02-08 22:29 | Anesthesiology Progress Note ---
Date of Service February 08, 2022 Anesthesia Post Procedure Vital Signs Vital Signs: Temp Pulse Pulse Pulse Resp BP Pulse Ox 02/08/22 20:30 36.5 C 71 18 172/73 H 95 02/08/22 20:02 66 18 95 02/08/22 20:00 36.6 C 59 L 20 173/79 H 100 02/08/22 19:30 36.7 C 64 20 181/73 H 95 02/08/22 19:15 36.5 C 63 18 183/73 H 93 02/08/22 18:45 36.8 C 63 16 183/80 H 92 02/08/22 18:25 67 20 179/71 H 95 02/08/22 18:15 36.7 C 61 14 135/83 96 02/08/22 18:05 64 20 173/41 H 97 02/08/22 17:55 68 20 190/68 H 97 02/08/22 17:45 69 17 192/70 H 97 02/08/22 17:35 71 13 187/58 H 96 02/08/22 17:25 36.2 C L 71 12 194/75 H 95 02/08/22 14:20 36.8 C 84 18 181/65 H 94 02/08/22 13:18 36.8 C 67 20 169/68 H 92 02/08/22 12:58 88 17 170/70 H 94 02/08/22 12:52 90 17 170/71 H 94 02/08/22 12:31 84 18 145/55 H 95 02/08/22 11:27 36.9 C 86 20 167/68 H 91 02/08/22 11:23 67 02/08/22 10:40 62 18 94 02/08/22 08:35 88 02/08/22 07:20 36.6 C 79 20 172/67 H 96 02/08/22 07:02 70 18 95 02/08/22 03:45 36.9 C 66 18 173/64 H 93 02/08/22 00:25 72 Pulse Ox 02/08/22 20:30 02/08/22 20:02 02/08/22 20:00 100 02/08/22 19:30 02/08/22 19:15 02/08/22 18:45 02/08/22 18:25 02/08/22 18:15 02/08/22 18:05 02/08/22 17:55 02/08/22 17:45 02/08/22 17:35 02/08/22 17:25 02/08/22 14:20 02/08/22 13:18 02/08/22 12:58 02/08/22 12:52 02/08/22 12:31 02/08/22 11:27 02/08/22 11:23 02/08/22 10:40 02/08/22 08:35 02/08/22 07:20 02/08/22 07:02 02/08/22 03:45 02/08/22 00:25 Pain Intensity Right Hip: Pain Intensity: 4 Right Elbow: Pain Intensity: 4 Head: Pain Intensity: 0 Transfer of Care Handoff Completed per policy Notes Mental Status: alert / awake / arousable and participated in evaluation Patient Amnestic to Procedure: Yes Nausea / Vomiting: adequately controlled Pain: adequately controlled Airway Patency, RR, SpO2: stable & adequate BP & HR: stable & adequate Hydration State: stable & adequate Anesthetic Complications: no major complications apparent and Pt Satisfied with anesthetic care
[2022-02-09] MEDS: oxyCODONE HCL IR 5 MG TAB (IMMEDIATE RELEASE) PO PRN (01:58)
[2022-02-09] MEDS: PIPERACILLIN/TAZOBACTAM 3.375 GM in DEXTROSE 5% 100 ML IV SCH ×3 (01:58→17:51)
[2022-02-09] MEDS: LEVOTHYROXINE SODIUM 100 MCG TABLET PO SCH (05:52)
[2022-02-09] MEDS: ALBUT/IPRATROP 3MG/0.5MG NEB 3 ML VIAL NEB SCH (06:56)
[2022-02-09 07:04] LABS: Basophils # (auto) 0.02 K/uL (0-0.2); Basophils % (auto) 0.1 %; Eosinophils # (auto) 0.14 K/uL (0-0.5); Eosinophils % (auto) 0.9 %; Hematocrit (blood only) 27.6 % (37-47); Immature Granulocytes # (auto) 0.04 K/uL (0.00-0.02); Immature Granulocytes % (auto) 0.3 %; Lymphocytes # (auto) 1.93 K/uL (1.2-3.4); Lymphocytes % (auto) 12.3 %; Mean Corpuscular Hemoglobin 29.9 pg (25-34); Mean Corpuscular Hgb Conc 32.6 g/dL (32-36); Mean Corpuscular Volume 91.7 fL (80-100); Mean Platelet Volume 10.8 fL (7.4-10.4); Monocytes # (auto) 1.47 K/uL (0.11-0.59); Monocytes % (auto) 9.4 %; Platelet Count 326 K/uL (130-400); RDW Coefficient of Variation 15.1 % (11.5-14.5); RDW Standard Deviation 50.7 fL (36.4-46.3); Red Blood Count 3.01 M/uL (4.2-5.4)
--- NOTE | 2022-02-09 08:00 | Hospitalist Progress Note ---
Date of Service February 09, 2022 Assessment & Plan (1) Syncope and collapse: Plan: - This is the 3rd event over the past several years - no prodrome - exact etiology unclear and etiology thought to be cardiogenic. No arrhythmia on online merchandising specialist. Is s/p loop recorder on 02/09--> Dr. Snider - Patient noted to be hypoxic (86% upon arrival)-- subsequently found to have PNA - perhaps hypoxemia contributing?. Patient now with findings with PNA-- see below (2) Pneumonia: Plan: - Pt hypoxic (86%) on arrival requiring 2-3L NC to keep his pulse ox ~90% - did have leukocytosis upon arrival (which could have been reactive from fall/fractures) or steroid induced but could have been from infx - fever of 101 F on 02/06 - CT of the chest showing lower lung space disease likely representing superimposed pneumonia - Patient does have Bronchiectasis with a chronic cough but reports a change/increased x past 2-4 weeks - Initially on Rocephin (for what was thought to be a UTI although UC showing NG). Changed to Zosyn + Doxycycline (as needed antipseudomonal coverage but also MRSA coverage in those with Bronchiectasis) along with atypical coverage - MRSA nasal swab negative but continue Doxy for the atypical coverage - covid negative. - biofire negative - chest PT ordered but increasing pain in her elbow. 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 The acetabula are uninvolved - Shine placed- continue management to gravity - Bedrest- maintain - No free fluid in pelvis noted on CT scan - follow HGB/HCT - Pain control tiered- Tylenol, oxy 5 prn, hydromorphone prn - Orthopedics consulted - appreciate assistance - plan is for nonsurgical management - WBAT, PT/OT eval (4) Olecranon fracture: Plan: - now s/p ORIF right olecranon 02/08--> Dr. Temple - patient is right hand dominant. 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 - perhaps exacerbated given lack of re-wetting drops while in house and having nothing to preoccupy her - resume artificial tears - will monitor - CT of the head done upon arrival - could this be exacerbated by the head trauma?-- perhaps but no other concussion symptoms (7) Polymyalgia rheumatica: Plan: Chronic- has been on steroids (prednisone)- since appears June 23 - Patient on low dose 2mg daily currently- continue - stress dose Solu-cortef given with plan to down taper accordingly given need for surgical intervention (8) Renal insufficiency: Plan: CKD III- CRCL 33- chronic - renally dose medications when needed - avoid further nephrotoxic medications - stable- baseline COR[employer]ICE [employer]ER 1.24-1.4 (9) Hypothyroidism: Plan: Continue Synthroid - TSH normal (10) Pre-diabetes: Plan: - hypoglycemic protocol in place - BS currently acceptable even in the presence of steroids (102 - 119 - 112 - 105 - 135 - 142 - 106 - 122) (11) Hypercalcemia: Plan: Mild 10.4 no symptoms - hold calcium supplementation - ionized Ca++ WNL (12) Asthma: Plan: Pt w/ chronic asthma and bronchiectasis, does not wear home O2 - no evidence of acute exacerbation at this time but Solu-cortef given perioper atively and transitioned to oral pred with taper - continue to follow (13) Osteoporosis: Plan: Continue vitamin D - Hold calcium - iCA level WNL (14) Vitamin D deficiency: Plan: - Vitamin D level WNL Plan: remove shine catheter monitor pain control plan of care to be D/W Dr. Byrne Admission and Anticipated Discharge Date Admission Date: February 05, 2022 Subjective Patient seen on daily rounds today. Is complaining of right arm pain today. Definitely worse with Chest percussion therapy. Pelvic pain currently controlled but very nervous to get up and out of bed. Had her right olecranon repaired yesterday along with the Loop recorder. Tolerated procedure without issues. Review of Systems Review of Systems: All systems reviewed and are unremarkable except as noted in HPI and below Denies fevers, chills, headache, nasal congestion, sore throat, cough, chest pain, shortness of breath, palpitations, orthopnea, PND, abdominal pain, nausea, vomiting, diarrhea, constipation, dysuria, hematuria, frequency, back pain, joint pain or swelling, easy bruising or bleeding, skin lesions or rashes. Physical Exam Physical Exam: General: Resting comfortably in her hospital bed. Does not appear ill or toxic. NAD. HEENT: Head is AT/NC. Buccal mucosa is moist and pink. Left facial nerve palsy. Neck: No JVD. Negative hepatojugular reflex Cardiac: RRR without M/G/R Lungs: breathing comfortably on supplemental O2. Significantly improved air exchange with bibasilar rales that improves with coughing Abdomen: Normoactive X4. Soft and nontender in all quadrants. Extremities: RUE in a post-surgical sling. Significant edema of the hand with ecchymosis. Radial pulse intact. Cap RF +2. Dexterity intact. Neuro: A&O X4. Cranial nerves II through XII are grossly intact. No focal neuro deficits Skin: No obvious skin lesions or rashes Psych: Appropriate affect. Pleasant and cooperative Results & Data Results & Data ([facility]) Vital Signs (Past 12 Hours) Vital Signs Temp Pulse Pulse Resp BP Pulse Ox 02/09/22 07:48 36.9 C 77 18 168/64 H 90 02/09/22 07:26 66 02/09/22 06:56 67 18 91 02/09/22 03:47 36.7 C 66 20 168/66 H 92 02/08/22 22:21 36.6 C 69 18 145/61 H 95 02/08/22 22:20 65 02/08/22 20:30 36.5 C 71 18 172/73 H 95 02/08/22 20:02 66 18 95 Laboratory Results 02/09/22 06:44 02/09/22 06:44 Sputum culture: Procedure Result Verified Site Gram Stain Final 02/08/22 Gram Stain Result Few Epithelial Cells Few WBCs Seen Few Gram Positive Bacilli Few Gram Positive Cocci Few Gram Negative Bacilli Sputum Culture Final 02/09/22 Moderate normal katya. PG Care Time/CCT Total # of Minutes Spent Total Time Spent with Patient: Total time spent is greater than 50% in coordination of care (as documented) at patient's floor/unit and/or counseling patient: Coding Level of Care Code 24663 Subseq Hosp Care Lvl 2 Diagnoses Syncope and collapse R55 Pneumonia J18.9 Pelvis fracture S32.9XXA Olecranon fracture S52.023A Laceration of head S01.91XA Diplopia H53.2 Polymyalgia rheumatica M35.3 Renal insufficiency N28.9 Hypothyroidism E03.9 Pre-diabetes R73.03 Hypercalcemia E83.52 Asthma J45.909 Osteoporosis M81.0 Vitamin D deficiency E55.9
[2022-02-09 08:16] LABS: BUN Creatinine Ratio 19.5 (10-20); Calcium 7.8 mg/dl (8.5-10.1); Creatinine Clr Calc Pharmacy 37.1 ml/min; Est GFR (African American) 51.3 ml/min; Est GFR (Non-African American) 44.3 ml/min
--- NOTE | 2022-02-09 08:20 | Orthopedic Progress Note ---
Date of Service February 09, 2022 Assessment & Plan (1) Closed fracture of right elbow: She had a very comminuted fracture of the right elbow but the surgery went well. She will be in the splint for 2 to 4 weeks. I will see her in the office in 2 weeks to remove the miranda. We will get x-rays and decide how much longer to keep her in the splint. With regards to her pelvis, she understands that this will be treated conservatively and will take 4 to 6 weeks to heal. She can be weightbearing as tolerated. She is orthopedically stable for discharge when medically ready. Full orthopedic discharge instructions were placed in the discharge summary. (2) Closed pelvic fracture: Marya Venegas was seen and examined at bedside this morning. Unfortunate she is pretty sore with her right elbow. She was able to get a little bit of sleep last night. She had no acute events. Review of Systems All systems reviewed & are unremarkable except as noted in HPI & below. Physical Exam On physical examination of her right elbow, she is wearing her sling as instructed. She has a posterior splint in place. She does have some swelling of the right hand. She has full motion of her hand and wrist. Results & Data Results & Data Laboratory Results . Diagnostic Findings . PG Care Time/CCT Total # of Minutes Spent Total Time Spent with Patient: Total time spent is greater than 50% in coordination of care (as documented) at patient's floor/unit and/or counseling patient: Coding Level of Care Code 09720 Post Operative Follow-Up Diagnoses Closed fracture of right elbow S42.401A Encounter type: initial encounter Closed pelvic fracture S32.82XA Encounter type: initial encounter Fracture alignment: without disruption of pelvic ring Pelvic bone location: multiple parts (1) Closed pelvic fracture Encounter type: initial encounter Fracture alignment: without disruption of pelvic ring Pelvic bone location: multiple parts Qualified Code(s): S32.82XA - Multiple fractures of pelvis without disruption of pelvic ring, initial encounter for closed fracture (2) Closed fracture of right elbow Encounter type: initial encounter Qualified Code(s): S42.401A - Unspecified fracture of lower end of right humerus, initial encounter for closed fracture
[2022-02-09] MEDS: lisinopril 2.5 MG TAB PO SCH ×2 (08:57→23:20)
[2022-02-09] MEDS: CHOLECALCIFEROL 1,000 UNITS 25 MCG TAB PO SCH (08:57)
[2022-02-09] MEDS: predniSONE 20 MG TAB PO SCH (08:57)
[2022-02-09] MEDS: guaiFENesin 600 MG TABCR PO SCH ×2 (08:57→23:20)
[2022-02-09] MEDS: ASPIRIN 81 MG ECTAB PO SCH (08:57)
[2022-02-09] MEDS: POLYETHYLENE (MIRALAX) 17 GM PACK PO SCH (08:58)
[2022-02-09] MEDS: CYANOCOBALAMIN (B-12) 500 MCG TABLET PO SCH (08:58)
[2022-02-09] MEDS: MAGNESIUM OXIDE 400 MG TAB PO SCH (08:58)
[2022-02-09] MEDS: CALCIUM 600MG + VIT D 400 IU TAB PO SCH (08:58)
[2022-02-09] MEDS ORDERED: NON-FORMULARY MEDICATION (Turmeric Root Extract 500 mg Capsule) PO SCH (09:00)
[2022-02-09] MEDS ORDERED: NON-FORMULARY MEDICATION (Cranberry Extract 500 mg Tablet) PO SCH (09:00)
[2022-02-09] MEDS ORDERED: COD LIVER OIL PO SCH (09:00)
[2022-02-09] MEDS: HYDROmorphone INJ 0.5 MG/0.5 ML SYR IV PRN ×2 (09:12→21:47)
[2022-02-09] MEDS: DOXYCYCLINE HYCLATE 100 MG in DEXTROSE 5% 100 ML IV SCH ×2 (09:17→23:24)
[2022-02-09] MEDS ORDERED: ALBUT/IPRATROP 3MG/0.5MG NEB 3 ML VIAL NEB PRN (10:44)
[2022-02-09] MEDS: SENNA 8.6 MG TAB PO SCH (23:20)
[2022-02-10] MEDS: PIPERACILLIN/TAZOBACTAM 3.375 GM in DEXTROSE 5% 100 ML IV SCH ×3 (01:36→17:58)
[2022-02-10] MEDS: LEVOTHYROXINE SODIUM 100 MCG TABLET PO SCH (05:36)
[2022-02-10] MEDS ORDERED: cloNIDine HCL 0.1 MG TAB PO PRN (07:24)
--- NOTE | 2022-02-10 07:56 | Orthopedic Progress Note ---
Date of Service February 10, 2022 Assessment & Plan (1) Closed fracture of right elbow: With regards to her right arm, I reassured her that the swelling and the pain is certainly to be expected. Unfortunately this will be pretty sore for 4 to 6 weeks. I will see her in the office in 2 weeks for suture removal and x- rays. With regards to her right pelvis this will be treated conservatively. She is going to be pretty sore for 4 to 6 weeks with her pelvis. She can be weightbearing as tolerated. I did encourage her to go to a chair again today. She is orthopedically stable for discharge when medically ready. Full orthopedic discharge instructions were placed in the discharge summary. (2) Closed pelvic fracture: Marya Venegas was seen and examined at bedside this morning. She had no acute events overnight but she is struggling with her right elbow and her pelvis. She was able to sit up in a chair a little bit yesterday. She is having a lot of pain in her right arm. Review of Systems All systems reviewed & are unremarkable except as noted in HPI & below. Physical Exam On physical examination the right arm, she is wearing her sling as instructed. Her right arm is elevated. A posterior splint is in place. The splint does not appear to be too tight. She does have a lot of swelling of her right hand. She has motion of her hand and her wrist. Results & Data Results & Data Laboratory Results . Diagnostic Findings . PG Care Time/CCT Total # of Minutes Spent Total Time Spent with Patient: Total time spent is greater than 50% in coordination of care (as documented) at patient's floor/unit and/or counseling patient: Coding Level of Care Code 90388 Post Operative Follow-Up Diagnoses Closed fracture of right elbow S42.401A Encounter type: initial encounter Closed pelvic fracture S32.82XA Encounter type: initial encounter Fracture alignment: without disruption of pelvic ring Pelvic bone location: multiple parts (1) Closed fracture of right elbow Encounter type: initial encounter Qualified Code(s): S42.401A - Unspecified fracture of lower end of right humerus, initial encounter for closed fracture (2) Closed pelvic fracture Encounter type: initial encounter Fracture alignment: without disruption of pelvic ring Pelvic bone location: multiple parts Qualified Code(s): S32.82XA - Multiple fractures of pelvis without disruption of pelvic ring, initial encounter for closed fracture
[2022-02-10 08:41] LABS: Basophils # (auto) 0.02 K/uL (0-0.2); Basophils % (auto) 0.2 %; Eosinophils # (auto) 0.06 K/uL (0-0.5); Eosinophils % (auto) 0.5 %; Hematocrit (blood only) 31.1 % (37-47); Immature Granulocytes # (auto) 0.05 K/uL (0.00-0.02); Immature Granulocytes % (auto) 0.4 %; Lymphocytes # (auto) 1.78 K/uL (1.2-3.4); Lymphocytes % (auto) 13.8 %; Mean Corpuscular Hemoglobin 29.3 pg (25-34); Mean Corpuscular Hgb Conc 32.2 g/dL (32-36); Mean Corpuscular Volume 91.2 fL (80-100); Mean Platelet Volume 10.5 fL (7.4-10.4); Monocytes # (auto) 0.95 K/uL (0.11-0.59); Monocytes % (auto) 7.4 %; Neutrophils % (auto) 77.7 %; Platelet Count 393 K/uL (130-400); RDW Coefficient of Variation 14.9 % (11.5-14.5); Red Blood Count 3.41 M/uL (4.2-5.4); White Blood Count 12.86 K/uL (4.8-10.8)
[2022-02-10] MEDS: CALCIUM 600MG + VIT D 400 IU TAB PO SCH (09:01)
[2022-02-10] MEDS: ASPIRIN 81 MG ECTAB PO SCH (09:01)
[2022-02-10] MEDS: predniSONE 10 MG TABLET PO SCH (09:01)
[2022-02-10] MEDS: CYANOCOBALAMIN (B-12) 500 MCG TABLET PO SCH (09:02)
[2022-02-10] MEDS: MAGNESIUM OXIDE 400 MG TAB PO SCH (09:02)
[2022-02-10] MEDS: CHOLECALCIFEROL 1,000 UNITS 25 MCG TAB PO SCH (09:02)
[2022-02-10] MEDS: lisinopril 2.5 MG TAB PO SCH ×2 (09:02→21:45)
[2022-02-10] MEDS: guaiFENesin 600 MG TABCR PO SCH ×2 (09:02→21:45)
[2022-02-10] MEDS: POLYETHYLENE (MIRALAX) 17 GM PACK PO SCH (09:02)
[2022-02-10 09:04] LABS: BUN Creatinine Ratio 18.9 (10-20); Calcium 8.6 mg/dl (8.5-10.1); Creatinine Clr Calc Pharmacy 33.5 ml/min; Est GFR (African American) 44.6 ml/min; Est GFR (Non-African American) 38.5 ml/min; Potassium 3.4 mmol/L (3.5-5.1)
[2022-02-10] MEDS: DOXYCYCLINE HYCLATE 100 MG in DEXTROSE 5% 100 ML IV SCH ×2 (09:10→21:41)
[2022-02-10] MEDS ORDERED: POTASSIUM CHLORIDE CRTAB 20 MEQ TABCR PO STA (12:30)
[2022-02-10] MEDS ORDERED: SODIUM CHLORIDE 0.9% 1000ML 1,000 ML IV SCH (12:30)
--- NOTE | 2022-02-10 12:42 | Hospitalist Progress Note ---
Date of Service February 10, 2022 Assessment & Plan (1) Syncope and collapse: Plan: - This is the 3rd event over the past several years - no prodrome - exact etiology unclear and etiology thought to be cardiogenic. No arrhythmia on front desk monitor. Is s/p loop recorder on 02/09--> Dr. Snider - Patient noted to be hypoxic (86% upon arrival)-- subsequently found to have PNA - perhaps hypoxemia contributing?. Patient now with findings with PNA-- see below (2) Pneumonia: Plan: - Pt hypoxic (86%) on arrival requiring 2-3L NC to keep his pulse ox ~90% - did have leukocytosis upon arrival (which could have been reactive from fall/fractures) or steroid induced but could have been from infx - fever of 101 F on 02/06 - CT of the chest showing lower lung space disease likely representing superimposed pneumonia - Patient does have Bronchiectasis with a chronic cough but reports a change/increased x past 2-4 weeks - Initially on Rocephin (for what was thought to be a UTI although UC showing NG). Changed to Zosyn + Doxycycline (as needed antipseudomonal coverage but also MRSA coverage in those with Bronchiectasis) along with atypical coverage --D/W her established Picker who agreed with current abx regimen - MRSA nasal swab negative but continue Doxy for the atypical coverage - covid negative. 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 No longer requiring supplemental O2 (3) Leukocytosis: Plan: - 17K upon presentation. ? reactive from fracture vs from PNA - have remained elevated but was steroid challenged--> is trending down - clinical improvement noted (4) Pelvis fracture: Plan: comminuted fracture of the right pubic symphysis extending to the anterior s uperior pubic ramus, as well as a comminuted fracture of the right inferior pubic ramus. The acetabula are uninvolved - Yanez placed upfront. Remove today to encourage ambulation - seen by Orthopedics. WBAT. - continue Oxycontin prn for pain control - PT/OT consulted-- have not yet seen patient but with concurrent elbow fx s/p ORIF and PNA, suspect she will need rehab. CM notified - vit D /ionized Ca++: WNL (5) Olecranon fracture: Plan: - now s/p ORIF right olecranon 02/08--> Dr. Temple - patient is right hand dominant. - significant swelling but no clinical indications of compartment syndrome. 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 - perhaps exacerbated given lack of re-wetting drops while in house and having nothing to preoccupy her - resumed artificial tears - will monitor - CT of the head done upon arrival - could this be exacerbated by the head trauma?-- perhaps but no other concussion symptoms (8) Hypokalemia: Plan: - replaced (9) Polymyalgia rheumatica: Plan: Chronic- has been on steroids (prednisone)- since appears June 23 - Patient on low dose 2mg daily currently- continue - stress dose Solu-cortef given with plan to down taper accordingly given need for surgical intervention (10) Renal insufficiency: Plan: CKD III- CRCL 33- chronic - renally dose medications when needed - avoid further nephrotoxic medications - stable- baseline 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 CM on board Is medically stable for D/C plan of care to be D/W Dr. Byrne Admission and Anticipated Discharge Date Admission Date: February 05, 2022 Subjective Patient seen on daily rounds today. Overall, feeling better. Cough persistent but seems close to her baseline. Improved from several days ago. No longer requiring supplemental O2. No fevers. Pain in her pelvis tolerable but definitely increased with certain positions of her leg (ie: turning her right leg medially) Review of Systems Review of Systems: All systems reviewed and are unremarkable except as noted in HPI and below Denies fevers, chills, headache, nasal congestion, sore throat, cough, chest pain, shortness of breath, palpitations, orthopnea, PND, abdominal pain, nausea, vomiting, diarrhea, constipation, dysuria, hematuria, frequency, back pain, joint pain or swelling, Physical Exam Physical Exam: General: Resting comfortably in her hospital bed. Does not appear ill or toxic. NAD. HEENT: Head is AT/NC. Buccal mucosa is moist and pink. Left facial nerve palsy. Neck: No JVD. Negative hepatojugular reflex Cardiac: RRR without M/G/R Lungs: breathing comfortably on ambient air. Significantly improved air exchange with bibasilar rhonchi that clears with coughing Abdomen: Normoactive X4. Soft and nontender in all quadrants. Extremities: RUE in a post-surgical sling. Significant edema of the hand with ecchymosis. Radial pulse intact. Cap RF +2. Dexterity intact. Neuro: A&O X4. Cranial nerves II through XII are grossly intact. No focal neuro deficits Skin: No obvious skin lesions or rashes Psych: Appropriate affect. Pleasant and cooperative Results & Data Results & Data ([facility]) Vital Signs (Past 12 Hours) Vital Signs Temp Pulse Pulse Resp BP Pulse Ox 02/10/22 11:43 36.7 C 64 20 153/61 H 93 02/10/22 07:25 36.7 C 69 20 190/83 H 92 02/10/22 07:15 60 02/10/22 05:39 184/75 H 02/10/22 03:27 36.8 C 67 16 196/69 H 95 02/10/22 01:54 71 Laboratory Results 02/10/22 08:24 02/10/22 08:24 PG Care Time/CCT Total # of Minutes Spent Total Time Spent with Patient: Total time spent is greater than 50% in coordination of care (as documented) at patient's floor/unit and/or counseling patient: Coding Level of Care Code 40559 Subseq Hosp Care Lvl 2 Diagnoses Syncope and collapse R55 Pneumonia J18.9 Pelvis fracture S32.9XXA Olecranon fracture S52.023A Laceration of head S01.91XA Diplopia H53.2 Polymyalgia rheumatica M35.3 Renal insufficiency N28.9 Hypothyroidism E03.9 Pre-diabetes R73.03 Asthma J45.909 Hypokalemia E87.6 Leukocytosis D72.829
[2022-02-10] MEDS: SENNA 8.6 MG TAB PO SCH (21:46)
[2022-02-10] MEDS: HYDROmorphone INJ 0.5 MG/0.5 ML SYR IV PRN (21:47)
[2022-02-11] MEDS: PIPERACILLIN/TAZOBACTAM 3.375 GM in DEXTROSE 5% 100 ML IV SCH ×3 (01:51→18:18)
[2022-02-11] MEDS: ACETAMINOPHEN 325 MG TAB PO PRN ×2 (04:53→13:14)
[2022-02-11] MEDS: LEVOTHYROXINE SODIUM 100 MCG TABLET PO SCH (05:54)
[2022-02-11 08:28] LABS: Calcium 9.2 mg/dl (8.5-10.1); Creatinine Clr Calc Pharmacy 31.5 ml/min; Est GFR (African American) 42.5 ml/min; Est GFR (Non-African American) 36.7 ml/min; Magnesium 1.9 mg/dl (1.7-2.4)
[2022-02-11 08:44] LABS: Basophils # (auto) 0.03 K/uL (0-0.2); Basophils % (auto) 0.2 %; Eosinophils # (auto) 0.19 K/uL (0-0.5); Eosinophils % (auto) 1.3 %; Hematocrit (blood only) 31.4 % (37-47); Hemoglobin 10.1 g/dL (12.0-16.0); Immature Granulocytes # (auto) 0.12 K/uL (0.00-0.02); Immature Granulocytes % (auto) 0.8 %; Lymphocytes # (auto) 2.37 K/uL (1.2-3.4); Lymphocytes % (auto) 15.7 %; Mean Corpuscular Hemoglobin 29.5 pg (25-34); Mean Corpuscular Volume 91.8 fL (80-100); Mean Platelet Volume 10.9 fL (7.4-10.4); Monocytes # (auto) 1.45 K/uL (0.11-0.59); Monocytes % (auto) 9.6 %; Neutrophils # (auto) 10.91 K/uL (1.4-6.5); Neutrophils % (auto) 72.4 %; Platelet Count 479 K/uL (130-400); RDW Coefficient of Variation 14.9 % (11.5-14.5); Red Blood Count 3.42 M/uL (4.2-5.4); White Blood Count 15.07 K/uL (4.8-10.8)
[2022-02-11] MEDS: VITAMIN B COMPLEX TAB PO SCH (09:18)
[2022-02-11] MEDS: MAGNESIUM OXIDE 400 MG TAB PO SCH (09:18)
[2022-02-11] MEDS: predniSONE 10 MG TABLET PO SCH (09:18)
[2022-02-11] MEDS: CALCIUM 600MG + VIT D 400 IU TAB PO SCH (09:18)
[2022-02-11] MEDS: ASPIRIN 81 MG ECTAB PO SCH (09:19)
[2022-02-11] MEDS: lisinopril 2.5 MG TAB PO SCH ×2 (09:19→20:14)
[2022-02-11] MEDS: CHOLECALCIFEROL 1,000 UNITS 25 MCG TAB PO SCH (09:19)
[2022-02-11] MEDS: CYANOCOBALAMIN (B-12) 500 MCG TABLET PO SCH (09:19)
[2022-02-11 09:20] LABS: Mean Corpuscular Hgb Conc 32.2 g/dL (32-36)
[2022-02-11] MEDS: POLYETHYLENE (MIRALAX) 17 GM PACK PO SCH ×2 (09:20→10:37)
[2022-02-11] MEDS: guaiFENesin 600 MG TABCR PO SCH ×2 (09:20→20:13)
[2022-02-11] MEDS: DOXYCYCLINE HYCLATE 100 MG in DEXTROSE 5% 100 ML IV SCH ×2 (09:24→22:21)
--- NOTE | 2022-02-11 13:34 | Hospitalist Progress Note ---
Date of Service February 11, 2022 Assessment & Plan (1) Syncope and collapse: Plan: - This is the 3rd event over the past several years - no prodrome - exact etiology unclear and etiology thought to be cardiogenic. No arrhythmia on marketing operations consultant. Is s/p loop recorder on 02/09--> Dr. Snider - Patient noted to be hypoxic (86% upon arrival)-- subsequently found to have PNA - perhaps hypoxemia contributing?. Patient now with findings with PNA-- see below (2) Pneumonia: Plan: - Pt hypoxic (86%) on arrival requiring 2-3L NC to keep his pulse ox ~90% - did have leukocytosis upon arrival (which could have been reactive from fall/fractures) or steroid induced but could have been from infx - fever of 101 F on 02/06 - CT of the chest showing lower lung space disease likely representing superimposed pneumonia - Patient does have Bronchiectasis with a chronic cough but reports a change/increased x past 2-4 weeks - Initially on Rocephin (for what was thought to be a UTI although UC showing NG). Changed to Zosyn + Doxycycline (as needed antipseudomonal coverage but also MRSA coverage in those with Bronchiectasis) along with atypical coverage --D/W her established Jd Edwards Developer who agreed with current abx regimen - MRSA nasal swab negative but continue Doxy for the atypical coverage - covid negative. 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 No longer requiring supplemental O2 (3) Leukocytosis: Plan: - 17K upon presentation. ? reactive from fracture vs from PNA - have remained elevated but was steroid challenged now with tapering course. - clinical improvement noted and patient afebrile (4) Pelvis fracture: Plan: comminuted fracture of the right pubic symphysis extending to the anterior superior pubic ramus, as well as a comminuted fracture of the right inferior pubic ramus. The acetabula are uninvolved - seen by Orthopedics. WBAT. nonsurgical fx - Pain control seems to be an issue. She has OxyContin as needed which does provide adequate pain control but timing seems to be an issue as she is uncertain when she will be ambulating with therapy. She has limited to no pain at rest - will initiate low-dose Ultram scheduled every morning - Continue scheduled Tylenol - On chronic prednisone thus will hold off on NSAIDs for now - Continue OxyContin as needed for pain - Hold off on scheduled opioid therapy given age and risk for altered mental status - PT/OT on board. Rehab recommended. Case management on board to help facilitate this - vit D /ionized Ca++: WNL (5) Olecranon fracture: Plan: - now s/p ORIF right olecranon 02/08--> Dr. Temple - patient is right hand dominant. - significant swelling but no clinical indications of compartment syndrome. Swelling actually improving. 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 No rash or evidence of zoster - Seems to be directly in the area of her right shoulder sling (the part that w raps around her chest wall) - Add Lidoderm patch - Not suspicious of a PE given the fact that it is reproducible on exam. 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 Awaiting rehab plan of care to be D/W Dr. Byrne Admission and Anticipated Discharge Date Admission Date: February 05, 2022 Subjective Patient seen on daily rounds today. Overall, reports no significant pain or any pain at rest. Having excruciating pain when attempting to ambulate. Does take oxycodone which helps with the pain; however, the problem is not knowing when she will be up and ambulating. She is struggling to time pain medication that is being given as needed for when she will be out of bed with therapy. In addition, she is now complaining of some mild left-sided rib pain which seems to correspond with where the right shoulder sling wraps around the chest wall. Worse with coughing or deep inhalation. No increase shortness of breath. Still on room air and oxygenating well. Review of Systems Review of Systems: All systems reviewed and are unremarkable except as noted in HPI and below Denies fevers, chills, headache, nasal congestion, sore throat, cough, chest pain, shortness of breath, palpitations, orthopnea, PND, abdominal pain, nausea, vomiting, diarrhea, constipation, dysuria, hematuria, frequency, back pain, joint pain or swelling, Physical Exam Physical Exam: General: Resting comfortably in her hospital bed. Does not appear ill or toxic. NAD. HEENT: Head is AT/NC. Buccal mucosa is moist and pink. Left facial nerve palsy. Neck: No JVD. Negative hepatojugular reflex Cardiac: RRR without M/G/R Lungs: breathing comfortably on ambient air. Significantly improved air exchange with bibasilar rhonchi that clears with coughing Abdomen: Normoactive X4. Soft and nontender in all quadrants. Extremities: RUE in a post-surgical sling. Significant edema of the hand with ecchymosis. Radial pulse intact. Cap RF +2. Dexterity intact. Neuro: A&O X4. Cranial nerves II through XII are grossly intact. No focal neuro deficits Skin: No obvious skin lesions or rashes Psych: Appropriate affect. Pleasant and cooperative Results & Data Results & Data ([facility]) Vital Signs (Past 12 Hours) Vital Signs Temp Pulse Pulse Resp BP Pulse Ox 02/11/22 11:00 36.8 C 65 18 148/70 H 95 02/11/22 08:04 62 02/11/22 08:00 36.6 C 72 18 144/69 H 96 02/11/22 03:47 36.7 C 67 18 150/67 H 96 Laboratory Results 02/11/22 08:08 02/11/22 07:36 PG Care Time/CCT Total # of Minutes Spent Total Time Spent with Patient: Total time spent is greater than 50% in coordination of care (as documented) at patient's floor/unit and/or counseling patient: Coding Level of Care Code 96541 Subseq Hosp Care Lvl 2 Diagnoses Syncope and collapse R55 Pneumonia J18.9 Leukocytosis D72.829 Pelvis fracture S32.9XXA Olecranon fracture S52.023A Laceration of head S01.91XA Diplopia H53.2 Hypokalemia E87.6 Polymyalgia rheumatica M35.3 Renal insufficiency N28.9 Hypothyroidism E03.9 Pre-diabetes R73.03 Asthma J45.909 Rib pain on left side R07.81
[2022-02-11] MEDS: traMADol HCL 50 MG TABLET PO SCH (14:14)
[2022-02-11] MEDS: LIDOCAINE 5% 1 PATCH TD SCH (15:54)
[2022-02-11] MEDS: ACETAMINOPHEN 325 MG TAB PO SCH ×2 (15:55→23:02)
[2022-02-11] MEDS ORDERED: VESICARE - ORDER AWAITING ACTION SCH (16:00)
[2022-02-11] MEDS: SOLIFENACIN SUCCINATE 10 MG PO SCH (20:12)
[2022-02-11] MEDS: SENNA 8.6 MG TAB PO SCH (20:15)
[2022-02-12] MEDS: PIPERACILLIN/TAZOBACTAM 3.375 GM in DEXTROSE 5% 100 ML IV SCH ×2 (02:25→10:10)
[2022-02-12] MEDS: LEVOTHYROXINE SODIUM 100 MCG TABLET PO SCH (05:27)
--- NOTE | 2022-02-12 06:49 | Orthopedic Progress Note ---
Date of Service February 12, 2022 Assessment & Plan (1) Closed fracture of right elbow: Unfortunately, she still struggling with her elbow and her pelvis. She understands that it will take 4 to 6 weeks to heal. With regards to her right elbow I took down the dressing and the splint. I looked at the incision. I then reinforced it with a soft dressing and an Rodolfo wrap that extended out past her hand. She feels much more comfortable not being in the splint. As long as she remains in the arm sling and does not move her elbow she will do fine being out of the splint. However, she needs to remain in the sling. She can continue to use her hand and her wrist. With regards to her pelvis I encouraged her to continue to be out of bed to a chair. She can be weightbearing as tolerated. She understands will take 4 to 6 weeks for the pain to start to subside. She is currently on aspirin 81 mg twice a day for DVT prophylaxis. I would rather not put her on anything stronger than that given the ecchymosis and bleeding around her forearm. She is orthopedically stable for discharge when medically ready. Full orthopedic discharge instructions were placed in the discharge summary. (2) Closed pelvic fracture: Marya Venegas was seen and examined at bedside this morning. Unfortunate she is struggling with pain in her pelvis and her right elbow. Her right elbow is really uncomfortable. There was some bloody drainage through the dressing yesterday. That was reinforced last night. She still dealing with a lot of swelling of her right hand. She was able to sit in the chair yesterday. . Review of Systems All systems reviewed & are unremarkable except as noted in HPI & below. Physical Exam On physical examination of the right elbow, the dressing and splint were removed. There is still a little bit of serous drainage from the incision site but the incision is fully closed. The swelling is down in her forearm but she h as a lot of swelling in her hand. I do not see any skin tears. She has a lot of ecchymosis. . Results & Data Results & Data Laboratory Results . Diagnostic Findings . PG Care Time/CCT Total # of Minutes Spent Total Time Spent with Patient: Total time spent is greater than 50% in coordination of care (as documented) at patient's floor/unit and/or counseling patient: Coding Level of Care Code 97113 Post Operative Follow-Up Diagnoses Closed fracture of right elbow S42.401A Encounter type: initial encounter Closed pelvic fracture S32.82XA Encounter type: initial encounter Fracture alignment: without disruption of pelvic ring Pelvic bone location: multiple parts (1) Closed fracture of right elbow Encounter type: initial encounter Qualified Code(s): S42.401A - Unspecified fracture of lower end of right humerus, initial encounter for closed fracture (2) Closed pelvic fracture Encounter type: initial encounter Fracture alignment: without disruption of pelvic ring Pelvic bone location: multiple parts Qualified Code(s): S32.82XA - Multiple fractures of pelvis without disruption of pelvic ring, initial encounter for closed fracture
[2022-02-12] MEDS: DOXYCYCLINE HYCLATE 100 MG in DEXTROSE 5% 100 ML IV SCH (07:53)
[2022-02-12] MEDS: POLYETHYLENE (MIRALAX) 17 GM PACK PO SCH (07:54)
[2022-02-12] MEDS: ACETAMINOPHEN 325 MG TAB PO SCH ×2 (07:54→15:30)
[2022-02-12] MEDS: LIDOCAINE 5% 1 PATCH TD SCH (08:00)
[2022-02-12] MEDS: lisinopril 2.5 MG TAB PO SCH ×2 (08:01→20:26)
[2022-02-12] MEDS: traMADol HCL 50 MG TABLET PO SCH ×2 (08:01→20:25)
[2022-02-12] MEDS: CALCIUM 600MG + VIT D 400 IU TAB PO SCH (08:01)
[2022-02-12] MEDS: guaiFENesin 600 MG TABCR PO SCH ×2 (08:02→20:26)
[2022-02-12] MEDS: predniSONE 20 MG TAB PO SCH (08:03)
[2022-02-12] MEDS: MAGNESIUM OXIDE 400 MG TAB PO SCH (08:03)
[2022-02-12] MEDS: CYANOCOBALAMIN (B-12) 500 MCG TABLET PO SCH (08:03)
[2022-02-12] MEDS: ASPIRIN 81 MG ECTAB PO SCH ×2 (08:03→20:28)
[2022-02-12] MEDS: CHOLECALCIFEROL 1,000 UNITS 25 MCG TAB PO SCH (08:03)
[2022-02-12 09:03] LABS: Creatinine Clr Calc Pharmacy 29.9 ml/min; Est GFR (African American) 38.9 ml/min; Est GFR (Non-African American) 33.6 ml/min
--- NOTE | 2022-02-12 15:31 | Hospitalist Progress Note ---
Date of Service February 12, 2022 Assessment & Plan (1) Syncope and collapse: Plan: - This is the 3rd event over the past several years - no prodrome - exact etiology unclear and etiology thought to be cardiogenic. No arrhythmia on alarm security or surveillance monitor. Is s/p loop recorder on 02/09--> Dr. Snider - Patient noted to be hypoxic (86% upon arrival)-- subsequently found to have PNA - perhaps hypoxemia contributing?. Patient now with findings with PNA-- see below (2) Pneumonia: Plan: - Pt hypoxic (86%) on arrival requiring 2-3L NC to keep his pulse ox ~90% - did have leukocytosis upon arrival (which could have been reactive from fall/fractures) or steroid induced but could have been from infx - fever of 101 F on 02/06 - CT of the chest showing lower lung space disease likely representing superimposed pneumonia - Patient does have Bronchiectasis with a chronic cough but reports a change/increased x past 2-4 weeks - Initially on Rocephin (for what was thought to be a UTI although UC showing NG). 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 No longer requiring supplemental O2 (3) Leukocytosis: Plan: - 17K upon presentation. ? reactive from fracture vs from PNA - have remained elevated but was steroid challenged now with tapering course. - clinical improvement noted and patient afebrile - Continue to follow (4) Pelvis fracture: Plan: comminuted fracture of the right pubic symphysis extending to the anterior superior pubic ramus, as well as a comminuted fracture of the right inferior pubic ramus. The acetabula are uninvolved - seen by Orthopedics. WBAT. nonsurgical fx - Pain control seems to be an issue. - Ill effects from OxyContin -Has since been started on scheduled Ultram as was having difficulty timing pain medication to correspond with ambulating with therapy (as no pain at rest). --Would encourage this be continued for now but follow up and down tape r/transition off of this medication within 2 to 4 weeks - On chronic prednisone thus will hold off on NSAIDs for now - Hold off on scheduled opioid therapy given age and risk for altered mental status - PT/OT on board. Rehab recommended. Case management on board to help facilitate this - vit D /ionized Ca++: WNL (5) Olecranon fracture: Plan: - now s/p ORIF right olecranon 02/08--> Dr. Temple - patient is right hand dominant. - significant swelling but no clinical indications of compartment syndrome. Swelling actually improving. 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 No rash or evidence of zoster - Seems to be directly in the area of her right shoulder sling (the part that wraps around her chest wall) - Lidoderm patch added. Pain resolved - Not suspicious of a PE given the fact that it is reproducible on exam. 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 Incision well approximated. Plan: Is medically and hemodynamically stable for discharge. Awaiting rehab plan of care to be D/W Dr. Byrne Admission and Anticipated Discharge Date Admission Date: February 05, 2022 Subjective Patient seen on daily rounds today. Overall, reports her pain is improved with the scheduled Ultram and Tylenol. Will back to reassess her later in the afternoon and she reports that she is able to ambulate with the scheduled Ultram. Does have pain but is tolerable. Otherwise, denies fevers, chills, chest pain, shortness of breath, abdominal pain, nausea or vomiting. Moving bowel bladder without difficulty. Orthopedics was in to reassess her right arm and has subsequently placed an Rodolfo wrap due to the edema. Is complaining of frequency without dysuria. Typically takes Vesicare which has not been ordered since admission. Review of Systems Review of Systems: All systems reviewed and are unremarkable except as noted in HPI and below Denies fevers, chills, headache, nasal congestion, sore throat, cough, chest pain, shortness of breath, palpitations, orthopnea, PND, abdominal pain, nausea, vomiting, diarrhea, constipation, dysuria, hematuria, back pain, joint pain or swelling, Physical Exam Physical Exam: General: Currently sitting on the bedside commode. HEENT: Slight hematoma on the head with 2 intact miranda. These have since been removed. Incision is scabbed over but well approximated. Neck: No JVD. Negative hepatojugular reflex. ecchymoses in the neck - right side (dependent from head trauma) Cardiac: RRR without M/G/R Lungs: CTA without W/R/R Abdomen: Normoactive X4. Soft and nontender in all quadrants. Extremities: Right upper extremity in a postsurgical sling. Persistent edema but overall improved. Capillary refill +2. Fine motor and dexterity intact. Radial pulse intact Neuro: A&O. Cranial nerves II through XII are grossly intact. No focal neuro deficits Skin: See above Psych: Appropriate affect. Pleasant and cooperative Results & Data Results & Data ([facility]) Vital Signs (Past 12 Hours) Vital Signs Temp Pulse Pulse Resp BP Pulse Ox 02/12/22 15:15 65 02/12/22 15:00 36.7 C 67 20 161/72 H 93 02/12/22 11:45 36.8 C 68 18 142/68 H 95 02/12/22 07:18 36.5 C 59 L 20 137/52 L 95 02/12/22 07:17 58 L 02/12/22 04:40 61 172/78 H 02/12/22 04:15 36.8 C 62 18 189/66 H Laboratory Results 02/11/22 08:08 02/12/22 07:21 PG Care Time/CCT Total # of Minutes Spent Total Time Spent with Patient: Total time spent is greater than 50% in coordination of care (as documented) at patient's floor/unit and/or counseling patient: Coding Level of Care Code 07472 Subseq Hosp Care Lvl 2 Diagnoses Syncope and collapse R55 Pneumonia J18.9 Leukocytosis D72.829 Pelvis fracture S32.9XXA Olecranon fracture S52.023A Laceration of head S01.91XA Diplopia H53.2 Hypokalemia E87.6 Rib pain on left side R07.81 Polymyalgia rheumatica M35.3 Renal insufficiency N28.9 Hypothyroidism E03.9 Pre-diabetes R73.03 Asthma J45.909 Encounter for staple removal Z48.02
[2022-02-12] MEDS ORDERED: HYDROCODONE/ACETAMOPHEN 5/325MG TAB PO PRN (15:58)
[2022-02-12] MEDS ORDERED: HYDROmorphone INJ 0.5 MG/0.5 ML SYR IV PRN (16:01)
[2022-02-12] MEDS: AMOXICILLIN/CLAVULANATE 875 MG TAB PO SCH (17:08)
[2022-02-12] MEDS: DOXYCYCLINE HYCLATE 100 MG CAP PO SCH (20:27)
[2022-02-12] MEDS: SOLIFENACIN SUCCINATE 10 MG PO SCH (20:28)
[2022-02-12] MEDS: SENNA 8.6 MG TAB PO SCH (20:29)
[2022-02-13] MEDS: LEVOTHYROXINE SODIUM 100 MCG TABLET PO SCH (05:40)
[2022-02-13] MEDS: SENNA 8.6 MG TAB PO SCH (07:59)
[2022-02-13] MEDS: guaiFENesin 600 MG TABCR PO SCH (08:00)
[2022-02-13] MEDS: ASPIRIN 81 MG ECTAB PO SCH (08:00)
[2022-02-13] MEDS: DOXYCYCLINE HYCLATE 100 MG CAP PO SCH (08:00)
[2022-02-13] MEDS: CYANOCOBALAMIN (B-12) 500 MCG TABLET PO SCH (08:00)
[2022-02-13] MEDS: lisinopril 2.5 MG TAB PO SCH (08:00)
[2022-02-13] MEDS: AMOXICILLIN/CLAVULANATE 875 MG TAB PO SCH (08:00)
[2022-02-13] MEDS: VITAMIN B COMPLEX TAB PO SCH (08:01)
[2022-02-13] MEDS: LIDOCAINE 5% 1 PATCH TD SCH (08:01)
[2022-02-13] MEDS: CHOLECALCIFEROL 1,000 UNITS 25 MCG TAB PO SCH (08:01)
[2022-02-13] MEDS: predniSONE 20 MG TAB PO SCH (08:01)
[2022-02-13] MEDS: CALCIUM 600MG + VIT D 400 IU TAB PO SCH (08:01)
[2022-02-13] MEDS: MAGNESIUM OXIDE 400 MG TAB PO SCH (08:01)
[2022-02-13 08:03] LABS: Basophils # (auto) 0.03 K/uL (0-0.2); Basophils % (auto) 0.2 %; Hematocrit (blood only) 31.5 % (37-47); Hemoglobin 10.1 g/dL (12.0-16.0); Immature Granulocytes # (auto) 0.25 K/uL (0.00-0.02); Immature Granulocytes % (auto) 1.7 %; Lymphocytes # (auto) 2.72 K/uL (1.2-3.4); Mean Corpuscular Hemoglobin 29.3 pg (25-34); Mean Corpuscular Hgb Conc 32.1 g/dL (32-36); Mean Corpuscular Volume 91.3 fL (80-100); Mean Platelet Volume 10.3 fL (7.4-10.4); Monocytes # (auto) 1.67 K/uL (0.11-0.59); Monocytes % (auto) 11.1 %; Neutrophils # (auto) 10.14 K/uL (1.4-6.5); Nucleated RBC # (auto) 0.04 K/uL (0-0); Nucleated RBC % (auto) 0.2 %; Platelet Count 592 K/uL (130-400); RDW Coefficient of Variation 15.2 % (11.5-14.5); RDW Standard Deviation 49.9 fL (36.4-46.3); Red Blood Count 3.45 M/uL (4.2-5.4); White Blood Count 15.11 K/uL (4.8-10.8)
[2022-02-13 08:09] LABS: BUN Creatinine Ratio 26.1 (10-20); Calcium 9.1 mg/dl (8.5-10.1); Creatinine Clr Calc Pharmacy 31.7 ml/min; Est GFR (African American) 41.8 ml/min; Magnesium 1.9 mg/dl (1.7-2.4); Potassium 3.5 mmol/L (3.5-5.1)
[2022-02-13] MEDS: POLYETHYLENE (MIRALAX) 17 GM PACK PO SCH (08:14)
[2022-02-13] MEDS: traMADol HCL 50 MG TABLET PO SCH (08:17)
--- NOTE | 2022-02-13 14:49 | Discharge Summary ---
Date of Service February 13, 2022 Admission HPI Per Admitting Provider 86 YOF with past medical history of: PMR (on prednisone since JUN- currently 2mg/day), Hypothyroidism, pre-diabetes, Osteopetrosis, asthma, bronchiectasis, neuropathy, right shoulder right rotator cuff repair (08/23), Lawrence's palsy, solitary pulmonary nodule. Patient comes to the EMD today s/p fall in her driveway. The patient reports that she was walking outside and coming back in to the house and woke up with head pain, right arm pain, and right hip and pelvic pain. She remembers her being with her- she can not remember how she fell and is amnestic to event leading up to fall. Her is also u nsure how she fell as he was in the house. He called 911. He states that she woke up a few minutes as he got outside to her and she remained awake for the rest of the time until EMS came to get her as well as to the EMD and is alert and oriented now. In the EMD the patient was noted to have head laceration that was primarily with janessa, she had her C-spine cleared radiographically with cervical c-spine and clinically, elbow X-ray, head CT, hip/pelvis X-ray, chest Xray, and pelvis CT. Patient was noted to have right olecranon fracture, which is now splinted, and her pelvic CT revealed comminuted fractures of the right pubic symphysis and superior and inferior pubic ramus. Orthopaedics was consulted and will evaluate patient in the morning. The patient previously had her right rotator cuff done by Dr. Temple. Dr. Tay monotyper orthopaedics is cross covering. The patient had a Yanez catheter placed as well as UA that did reveal 4+ bacteria and was started on Rocephin. She was also given Tetanus vaccination with DPT. Hospitalist was consulted for admission. Overall the patient is moderatly comfortable with most of her pain in her right arm and right hip. She feels the stretcher is causing the majority of her pain. Will obtain 2V of her right shoulder as she is having pain with movement cephalad and across her body. Will keep NPO after midnight. Continue Rocephin while her Urine culture is pending. Place on telemetry overnight to evaluate for any dysrhythmia that may have caused her episodes. Type and cross. Principal Diagnosis 1. Pelvic Fracture- nonsurgical 2. Right Olecranon Fracture- s/o ORIF 3. Pneumonia- improving 4. Hypoxemia- resolved 5. Syncope with Fall- resulting in #1/2-- s/p Loop Recorder Insertion. ? 2/2 Hypoxemia 6. Leukocytosis- suspect multifactorial (steroids, fracture, pneumonia) 7. Hypokalemia- replaced and resolved 8. Right rib pain- intercostal strain 9. Head Laceration- s/p repair. [place] subsequently removed. Discharge Exam General: Currently sitting on the bedside commode. HEENT: Slight hematoma on the head with 2 intact janessa. These have since been removed. Incision is scabbed over but well approximated. Neck: No JVD. Negative hepatojugular reflex. ecchymoses in the neck - right side (dependent from head trauma) Cardiac: RRR without M/G/R Lungs: CTA without W/R/R Abdomen: Normoactive X4. Soft and nontender in all quadrants. Extremities: Right upper extremity in a postsurgical sling. Persistent edema but overall improved. Capillary refill +2. Fine motor and dexterity intact. Radial pulse intact Neuro: A&O. Cranial nerves II through XII are grossly intact. No focal neuro deficits Skin: See above Psych: Appropriate affect. Pleasant and cooperative Discharge Data Allergies Allergy/AdvReac Type Severity Reaction Status Date / Time fexofenadine AdvReac Unknown Diarrhea Verified 02/05/22 17:36 Consultations 02/05/22 18:06 ED Decision to Admit Stat 02/06/22 12:34 Consult Cardiology Routine Procedures Performed Operation Date: 02/07/22 13:30 <No data on this case meets the specified criteria> Operation Date: 02/08/22 08:10 Actual Procedures p Right Olecranon Open Reduction Internal Fixation(Right) - Kaz Temple DO Operation Date: 02/08/22 15:00 Actual Procedures p Implant Cardiac Event Recorder - Alfonso Beatty MD Ordered Studies 02/05/22 15:07 CT cervical spine wo con Stat IMPRESSION: No fractures within the cervical spine. Xray of the Right Elbow: IMPRESSION: Acute olecranon fracture with associated soft tissue swelling. CT head/brain wo con Stat Impression: No acute intracranial hemorrhage or skull fractures. Scalp swelling is seen in the right calvarium. Xray of the hips and pelvis: IMPRESSION: No evidence of acute osseous injury. Xray of the right shoulder: IMPRESSION: Degenerative changes without evidence of acute abnormality. 02/05/22 16:16 CT pelvis w/IV con only Stat IMPRESSION: Comminuted fractures of the right pubic symphysis and superior and inferior pubic ramus. CXR: IMPRESSION: No acute chest disease. 02/07/22 09:10 CT chest diagnostic wo con Stat IMPRESSION: Lower lung airspace opacities likely represent atelectasis and superimposed pneumonia. Cardiomegaly and pulmonary hypertension are seen. 02/08/22 FL elbow RT 2V Routine Hospital Course (1) Syncope and collapse: - This is the 3rd event over the past several years - no prodrome - exact etiology unclear and etiology thought to be cardiogenic. No arrhythmia on secured entrance monitor. Is s/p loop recorder on 02/09--> Dr. Snider - Patient noted to be hypoxic (86% upon arrival)-- subsequently found to have PNA - perhaps hypoxemia contributing?. Patient now with findings with PNA-- see below (2) Pneumonia: - Pt hypoxic (86%) on arrival requiring 2-3L NC to keep his pulse ox ~90% - did have leukocytosis upon arrival (which could have been reactive from fall/fractures) or steroid induced but could have been from infx - fever of 101 F on 02/06 - CT of the chest showing lower lung space disease likely representing superimposed pneumonia - Patient does have Bronchiectasis with a chronic cough but reports a change/increased x past 2-4 weeks - Initially on Rocephin (for what was thought to be a UTI although UC showing NG). Changed to Zosyn + Doxycycline (as needed antipseudomonal coverage but also MRSA coverage in those with Bronchiectasis) along with atypical coverage --D/W her established Linoleum Layer who agreed with current abx regimen --Transition to oral doxycycline and Augmentin for 3 additional doses (total of 7 days) - MRSA nasal swab negative but continue Doxy for the atypical coverage - covid negative. - biofire negative - chest PT ordered but increasing pain in her elbow, has since been stopped - Acapella flutter valve ordered but patient unable to utilize as can not close mouth over device given her chronic bells palsy - continue incentive spirometry - sputum culture ordered-- normal katya - Blood cultures ordered -- NGTD - utilized mucolytic agents and antitussives as needed - showing continued favorable response. No longer requiring supplemental O2 - recommend repeat CT of the chest in 6 weeks (at discretion of PCP) (3) Leukocytosis: - 17K upon presentation. ? reactive from fracture vs from PNA - have remained elevated but was steroid challenged now with tapering course. - clinical improvement noted and patient afebrile - Continue to follow-- consider repeat labs in 1 week (at discretion of PCP) (4) Pelvis fracture: comminuted fracture of the right pubic symphysis extending to the anterior superior pubic ramus, as well as a comminuted fracture of the right inferior pubic ramus. The acetabula are uninvolved - seen by Orthopedics. WBAT. nonsurgical fx - Pain control seems to be an issue. - on ASA 81mg BID (x30 days) for DVT prophylaxis then resume daily ASA - Ill effects from OxyContin - Has since been started on scheduled Ultram as was having difficulty timing pain medication to correspond with ambulating with therapy (as no pain at rest). --Would encourage this be continued for now but follow up and down taper/transition off of this medication within 2 to 4 weeks - On chronic prednisone thusavoiding NSAIDs for now - Hold off on scheduled opioid therapy given age and risk for altered mental status - PT/OT on board. Rehab recommended. D/C to the [facility] today for continued rehab - vit D /ionized Ca++: WNL (5) Olecranon fracture: - now s/p ORIF right olecranon 02/08--> Dr. Temple - patient is right hand dominant. - significant swelling but no clinical indications of compartment syndrome. Swelling actually improving. Patient encouraged to utilize ice and elevation-- continue to follow clinically - follow up with Ortho: 2 weeks (6) Laceration of head: From fall with head strike to driveway - Initial head non-con head negative - Neurologically intact- amnestic to event leading up to fall - Wound primary closure with janessa by EMD--janessa removed on 02/12 - Tetanus given (7) Diplopia: - predates this hospitalization but worse since striking her head per patient - seen by her Surgeon Assistant in the past for this issue - perhaps related to dry eye given her lawrence's palsy and inability to close the left eye completely - perhaps exacerbated given lack of re-wetting drops while in house and having nothing to preoccupy her - resumed artificial tears--can continue these - will monitor - CT of the head done upon arrival - could this be exacerbated by the head trauma?-- perhaps but no other concussion symptoms - recommend FU with Ophthalmology as an outpatient (8) Hypokalemia: - replaced/ resolved (9) Rib pain on left side: - Reproducible upon palpation of the left lower rib/chest wall. No rash or evidence of zoster - Seems to be directly in the area of her right shoulder sling (the part that wraps around her chest wall) - Lidoderm patch added. Pain resolved. continue Lidoderm patch for now. - Not suspicious of a PE given the fact that it is reproducible on exam. No need for added imaging at this time (10) Polymyalgia rheumatica: Chronic- has been on steroids (prednisone)- since appears June 23 - Patient on low dose 2mg daily routinely - stress dose Solu-cortef given given need for surgery with continued down taper (10mg on 02/13 & 02/14, 5mg on 02/15 & 02/16 then resume 2mg dosing) -- added Protonix for GI prophylaxis (given the ASA bid, prednisone, and advanced age) (11) Renal insufficiency: CKD III- CRCL 33- chronic - renally dose medications when needed - avoid further nephrotoxic medications - stable- baseline PENSIONS RETIREMENT PLAN SPECIALIST 1.24-1.4 (12) Hypothyroidism: Continue Synthroid - TSH normal (13) Pre-diabetes: - hypoglycemic protocol in place - BS currently acceptable even in the presence of steroids (102 - 119 - 112 - 105 - 135 - 142 - 106 - 122) (14) Asthma: Pt w/ chronic asthma and bronchiectasis, does not wear home O2 - no evidence of acute exacerbation at this time but Solu-cortef given perioperatively and transitioned to oral pred with taper - continue to follow (15) Encounter for staple removal: - 2 janessa from temporal region of the head removed. Incision well approximated. Is medically and hemodynamically stable for discharge to SNF today plan of care to be D/W and seen and agreed upon by Dr. Rios Total Time Total Time Spent Total Time Spent (In Minutes): 45 min including time with patient, coordination of care, preparation of documentation Discharge Plan Discharge Items Patient Disposition: Transfer Longterm Fac Reason For Visit: FALL, COMMINUTED FX OF THE RIGHT PUBIC SYMPHYSIS Discharge Diagnosis: 1. Pelvic Fracture- nonsurgical 2. Right Olecranon Fracture- s/o ORIF 3. Pneumonia- improving 4. Hypoxemia- resolved 5. Syncope with Fall- resulting in #1/2-- s/p Loop Recorder Insertion. ? 2/2 Hypoxemia 6. Leukocytosis- suspect multifactorial (steroids, fracture, pneumonia) 7. Hypokalemia- replaced and resolved 8. Right rib pain- intercostal strain 9. Head Laceration- s/p repair. [place] subsequently removed. Condition on Discharge: Fair Activity: Resume your previous activity Activity Comment: WBAT to lower extremities. NWB to Right upper extremity Non-emergency contact: Primary Care Provider, Specialist and Linoleum Layer Call non-emergency contact if: you have any medication questions, your symptoms worsen, your pain is not controlled and you have a fever Follow-up/Referrals: Alejandro Snider MD [Physician] - Farhan Vines MD [Primary Care Provider] - Moreno Costello MD [Physician] - Kaz Temple DO [Physician] - Diet: Carb Consistent or DM2 Addtl Attending Provider Instructions: you presented to the hospital after sustaining a ground level fall as a result of passing out as a result of the fall/passing out (syncope): -You fractured your pelvis-- (nonsurgical fracture, Weight bear as tolerated) -a fracture of the right elbow --(has since been repaired-- Dr. Temple) -a laceration of the scalp --(that was stapled. Janessa removed after 10 days. Tetanus vaccine updated) You are on aspirin routinely. This has been increased to twice a day ([id number]) to prevent blood clot formation. After this, resume your once daily dosing Aspiring and prednisone can be hard on the stomach. You have been placed on Protonix 40mg daily x 30 days to help prevent your stomach from irritation given the added prednisone and aspirin. It is uncertain what caused you to pass out. You were found to have Pneumonia with a low Oxygen level and it is quit possible that this was the culprit; however, you have had this happen in the past. You were on a secured entrance monitor while in the hospital without any obvious arrhythmia seen but had a loop recorder inserted to help detect any underlying cardiac issues that could have caused you to pass out. You have been treated for your Pneumonia with antibiotics. Several doses of each remain: - Augmentin to take twice a day for x 3 more doses, next dose due tonight - Doxycycline to take twice a day for 3 more doses, next dose tonight Because you take chronic prednisone and needed to have surgery, we have to "steroid challenge" you with IV prednisone. You are now on a tapering course of prednisone. --take 10mg today and tomorrow (02/14 & 02/15) --take 5 mg once a day on 02/16 & 02/17 --then resume your usual 2mg a day The Antibiotics that you are on is likely contributing to your loose stools. The bowel regimen has since been stopped. You have been placed on a probiotic to help. I recommend eating foods such as yogurt (with live cultures) and cheese to help replenish the good bacteria in your gut. If your diarrhea persists after completing the antibiotics, may need to consider stool studies for C.Diff-- at discretion of House Physician You have been started on Routine/scheduled Ultram to help with pain as this has been a problem for you. You haven't have significant pain at rest, but when attempting to stand/walk-- your pain has been severe. It had been hard for you to schedule the pain medication "as needed" and time it accordingly to when you are receiving therapy. In addition, strong narcotic medications has made you feel "loopy". We have put you on Ultram 50mg twice a day. This is to be used short term. It can be increased if needed. Once you start healing, your pain will improve and you will be able to wean off of the Ultram (to as needed and then stop). You have Left sided rib pain. No fracture or rash (shingles) seen. Suspect related to an intercostal strain. A Lidoderm patch has been ordered. Put on in the am, off in the pm (should only be used for 12 hours at a time). Follow up with the House Physician within 24-48 hours Follow up with Cardiology (regarding the Loop recorder) Follow up with Ortho: 2 weeks Follow up with Dr. Costello (your Linoleum Layer) regarding the pneumonia. I would advise repeat CT of the chest in 4-6 weeks (but this is at the discretion of Dr. Costello). Return to the ED for new or worsening symptoms Addtl Glass Science Engineer Provider Instructions: ORTHOPEDIC INSTRUCTIONS Activity Recommendations: Right arm splint and arm sling at all times. May use right hand and fingers. Weightbearing as tolerated on the right hip. Dressing Care: Leave the splint in place until follow-up in the office in 2 weeks Showering: Do not get the splint wet. Follow-Up Visit: Follow-up with Dr. Temple's PA (Kaz Palafox) 2-3 weeks after your day of surgery. He will remove your janessa and answer any questions. We will get x-rays and determine how long you need to be in the right elbow splint. Please call the office to make an appointment for a time that works for you. Pending Studies at Discharge: No Stand-Alone Forms: My [facility] Skilled Items Patient informed of condition?: Yes DNR: No Discharge Level of Care: Skilled Communicable Disease: No Discharge Prognosis: Stable Lines: None Urinary Catheter: No Medications and DC Order Prescriptions: New amoxicillin-pot clavulanate 875-125 mg tablet 1 tab PO BID Qty: 3 RF: 0 doxycycline hyclate 100 mg Capsule 100 mg PO BID Qty: 3 RF: 0 Lactobacillus acidophilus Capsule 100 mg PO BID Qty: 10 RF: 0 hydrocodone-acetaminophen 5-325 mg Tablet 1 tab PO Q6H PRN (Reason: pain) Qty: 12 RF: 0 aspirin 81 mg Tablet,Delayed Release (Dr/Ec) 81 mg PO BID Qty: 60 RF: 0 tramadol 50 mg Tablet 50 mg PO BID Qty: 60 RF: 0 prednisone 10 mg tablet 10 mg PO DAILY Qty: 3 RF: 0 lidocaine 5 % Adhesive Patch,Medicated 1 patch transdermal QAM Qty: 30 RF: 0 pantoprazole [Protonix] 40 mg tablet,delayed release (DR/EC) 40 mg PO DAILY Qty: 30 RF: 0 Continued calcium carbonate-vitamin D3 [Caltrate 600 plus D] 600 mg (1,500 mg)-800 unit tablet,chewable 1 tab PO QAM RF: 0 cod liver oil capsule 1 cap PO QAM RF: 0 levothyroxine [Synthroid] 100 mcg tablet 100 mcg PO QAM Qty: 90 RF: 3 lisinopril 2.5 mg tablet 1.25 mg PO BID Qty: 90 RF: 3 solifenacin [Vesicare] 10 mg tablet 10 mg PO DAILY Qty: 30 RF: 2 albuterol sulfate [ProAir HFA] 90 mcg/actuation HFA aerosol inhaler 1 - 2 puff INH Q6H PRN (Reason: shortness of breath) Qty: 8.5 RF: 0 vitamin B complex Tablet 1 tab PO 3XWK RF: 0 magnesium 250 mg Tablet 250 mg PO BID RF: 0 cholecalciferol (vitamin D3) [Vitamin D3] 25 mcg (1,000 unit) Tablet 25 mcg PO QAM RF: 0 turmeric root extract 500 mg Capsule 500 mg PO QAM RF: 0 cranberry extract 500 mg Tablet 500 mg PO QAM RF: 0 cyanocobalamin (vitamin B-12) [Vitamin B-12] 1,000 mcg Tablet Extended Release 1,000 mcg PO QAM RF: 0 Discontinued aspirin 81 mg tablet,delayed release (DR/EC) 81 mg PO QAM RF: 0 prednisone 1 mg tablet 2 mg PO DAILY RF: 0 Discharge Orders: Discharge Order (Routine); Ordered 02/13/22 Ordered By: Indy Nielson Admission Data Admit Date/Time: 02/05/22 18:51 Attending Provider: Cedrick Rios Admit Provider: Marcial Castanon Primary Care Provider: Farhan Vines Other Providers: Alex Ron ; Marcial Castanon ; Alejandro Snider ; [facility] ; [facility] ; [facility] Other Interventions: Discharge Summary Assessment (RN) Last Done: 02/13/22 10:18 Supervising Physician Co-Signing Physician Notes I personally saw and examined the patient. I verified all carcamo points and agree with BRITNEY Tesfaye with the following exceptions and/or additions: 86 year old female admission for a fall. Found by on ground. Pelvic fracture and right olecranon fracture seen on imaging and secondary survery otherwise negative. O/E A&Ox3, HS1+2, no murmurs, Chest CTAB, Abdo SNT, NV intact distal LE and RUE A/P UTI - Initially treated with IV antibiotics. Will complete with oral antibiotics at discharge. Discharge instructions as noted above. Coding Level of Care Code D/C DAY MANAGEMENT >30 MINS Diagnoses Syncope and collapse R55 Pneumonia J18.9 Leukocytosis D72.829 Pelvis fracture S32.9XXA Olecranon fracture S52.023A Laceration of head S01.91XA Diplopia H53.2 Hypokalemia E87.6 Rib pain on left side R07.81 Polymyalgia rheumatica M35.3 Renal insufficiency N28.9 Hypothyroidism E03.9 Pre-diabetes R73.03 Asthma J45.909 Encounter for staple removal Z48.02
== END 2022-02-13 14:36 | DRG 510 ==
LOC: ED 14:45 → SUATTDRO 18:51 → 2W 18:51
DX: N18.30 Chronic kidney disease, stage 3 unspecified; M19.012 Primary osteoarthritis, left shoulder; E03.9 Hypothyroidism, unspecified; R09.02 Hypoxemia; S01.01XA Laceration without foreign body of scalp, initial encounter; N39.0 Urinary tract infection, site not specified; R73.03 Prediabetes; S23.41XA Sprain of ribs, initial encounter; E55.9 Vitamin D deficiency, unspecified; Y93.01 Activity, walking, marching and hiking; E87.6 Hypokalemia; M81.0 Age-related osteoporosis without current pathological fracture; J18.9 Pneumonia, unspecified organism; E83.52 Hypercalcemia; S32.511A Fracture of superior rim of right pubis, initial encounter for closed fracture; M19.011 Primary osteoarthritis, right shoulder; Z88.8 Allergy status to other drugs, medicaments and biological substances; S52.023A Displaced fracture of olecranon process without intraarticular extension of unspecified ulna, initial encounter for closed fracture; S32.591A Other specified fracture of right pubis, initial encounter for closed fracture; H53.2 Diplopia; Y92.89 Other specified places as the place of occurrence of the external cause; M35.3 Polymyalgia rheumatica; R55 Syncope and collapse; W19.XXXA Unspecified fall, initial encounter

== ENCOUNTER 2025-08-26 15:03 | Inpatient (IN) ==
--- NOTE | 2025-08-26 15:13 | Emergency Department Note ---
Impression & Plan Atrial fibrillation with rapid ventricular response, Elevated troponin ED Provider Note NAME: CHASE GRIJALVA AGE: 89 SEX: F : 1935 ARRIVES VIA: Ambulance INFORMANT: Patient ED PROVIDER(S): Jamie Christensen DO CHIEF COMPLAINT: Chest pain HPI: Patient is an 89-year-old female with a past medical history of syncope, fall, asthma and double vision who presents to the ER for chest pain which has been present since the fall. She was following up with her PCP. It is midsternal and only present with breathing or when she pushes on it. They got an EKG and found her to be in A-fib and sent her in. She denies any history of A-fib. No dizziness or lightheadedness. No belly pain. No nausea, vomiting, or diarrhea. No dysuria, urgency or frequency. ADDITIONAL HISTORY OBTAINED: Per HPI Chronic Medical/Social Conditions Affecting Care: Per HPI PAST MEDICAL HISTORY:See Below PAST SURGICAL HISTORY:See Below FAMILY HISTORY:See Below SOCIAL HISTORY:See Below HOME MEDICATIONS:See Below ALLERGIES:See Below VITALS:See Below PHYSICAL EXAMINATION: GENERAL: Sitting up in bed, alert, well appearing, well nourished, no distress, non-toxic HEAD: Bruising around the right orbit EYE EXAM: normal conjunctiva. PERRL and EOM's grossly intact. OROPHARYNX: no exudate, no erythema, lips, buccal mucosa, and tongue normal and mucous membranes are moist NECK: supple, no nuchal rigidity, no adenopathy, non-tender LUNGS: Clear to auscultation. Normal chest wall mechanics HEART: Tachycardic and irregular regular, S1 normal and S2 normal ABDOMEN: abdomen soft, non-tender, normo-active bowel sounds, no masses, no rebound or guarding. UPPER EXTREMITIES: upper extremities are grossly normal. LOWER EXTREMITIES: No pitting edema. NEURO EXAM: Normal sensorium, cranial nerves II-XII grossly intact, normal speech, no gross weakness of arms, no gross weakness of legs. MEDICAL DECISION MAKING: Patient is an 89-year-old female who presents ER with a past medical history of hypertension, closed head injury, asthma for A-fib with RVR referred in by PCP. IV was established and blood work was obtained. Labs show mild leukocytosis 13,000. No significant anemia. EKG was consistent with A-fib with RVR. She was placed on a Cardizem drip and given a bolus. Chest x-ray was clean. CMP with a creatinine 1.3 and LFTs and bilirubin were unremarkable. Troponin was elevated at about 200. Patient was placed on Cardizem drip and given a bolus. She converted to sinus rhythm. EKG confirmed. Troponin was elevated and consequently discussed with the hospitalist for further evaluation management treatment. Consults/Care Managements Discussions: Per [facility] Triage Nursing notes reviewed. Limited review of prior medical records performed Vital Signs: reviewed and remarkable for no significant abnormalities Differential diagnosis: Cardiac ischemia, aortic dissection, pulmonary embolism, pneumothorax, pneumonia, pericarditis, myocarditis, esophageal rupture, GERD, cholecystitis, pancreatitis, musculoskeletal, as well as other pathologies. ER treatment provided: See below Diagnostics interpreted by me include EKG and cardiac monitoring as listed below: -Cardiac Monitoring: An order was placed for continuous cardiac monitoring. The monitor shows a rate of 120 with AFIB rhythm. -ECG: A-fib rate of 122 Left axis No PVCs QTc 478 EKG #2 Sinus rhythm bradycardia rate of 58 Left axis No PVCs QTc 4 4 -Laboratory studies:Interpreted by me as stated above in MDM and shown below. Imaging studies: Xrays: As interpreted by me: Portable AP upright 1 view of the chest shows no focal M-Trate CTs show: none Procedures:none Critical Care: I have personally spent 33 minutes of critical care time in the direct management of this patient. This includes bedside care, interpretation of diagnostic studies, and testing, discussion with consultants, patient, and family members, and other required patient management activities. This 33 minutes is in excess of all separately billable procedures. Past Med/Surg History Problem List (Updated 08/26/25 @ 21:56 by Jamie Christensen DO) Elevated troponin (Acute) Atrial fibrillation with rapid ventricular response (Acute) Acute kidney injury Elevated troponin Atrial fibrillation with RVR Laceration of elbow, right (Acute) Elbow pain (Acute) CHI (closed head injury) (Acute) Fall (Acute) Hypertension Syncope and collapse - hx of- prior to loop recorder placement in 02/2022- no subsequent events since that time -follows with Dr. Snider Urge incontinence Chondrocalcinosis S/P eye surgery Lateral epicondylitis, right elbow History of spinal fracture (~08/07/22) Severe L3 burst fracture History of compression fracture of vertebral column (~08/07/22) multiple History of pelvic fracture (02/05/22) from fall Change in bowel function Chronic low back pain Medial epicondylitis of left elbow Skin tear of elbow without complication Optic nerve swelling History of loop recorder Rib pain on left side Diplopia S/P rotator cuff repair Rotator cuff tear, right Neuropathy Bronchiectasis Flank pain Asthma (Acute) Hearing loss (Acute) Osteoporosis (Acute) Vitamin D deficiency (Acute) Renal insufficiency PCP monitoring Hypothyroidism (Chronic) Polymyalgia rheumatica (Chronic) Pre-diabetes (Chronic) monitors Medical History Pre-diabetes Polymyalgia rheumatica Osteoporosis Hypothyroidism History of compression fracture of spine hx--happened after syncopal episode/fall 2021 Asthma inhaler prn History of anemia Olecranon fracture hx COVID-19 hx---resolved Hx of basal cell carcinoma Hx of bronchiectasis follows with Pulmonary/Allergy [facility]- stable at 09/2024 appt Osteoarthritis Solitary pulmonary nodule Lawrence's palsy ~2003 Surgical History History of arthroscopy of right shoulder History of loop recorder Hx of skin graft S/P right knee arthroscopy S/P colonoscopy S/P cataract surgery S/P parathyroidectomy S/P cholecystectomy S/P blepharoplasty S/P appendectomy Family History Mother Myocardial infarction Hypertension Family/Other Thyroid disorder Brother Thyroid disorder Sister Thyroid disorder Other Diabetes Heart disease No family history of adverse response to anesthesia Denies family history of Ovarian cancer Prostate cancer Breast cancer Colorectal cancer Social History Smoking Status: Never smoker Tobacco Type: Cigarettes Age Started Using Tobacco: 19; Age Quit Using Tobacco: 26; packs per day: 1; Second Hand Exposure: No; Do You Dip or Chew Tobacco: No; Tobacco Cessation Education Requested by Patient: No Hx Alcohol Use: No Hx Substance Use: No Preferred Language: Swedish Communication Ability: Effective Visual Impairment: No Limitations Hearing Ability: Normal Client Professional Required: No Beliefs That Will Affect Care: None marital status: Current Living Situation: Spouse current occupational status: retired How many Children do You have: 2 How many Children do You have Comment: 1 boy 1 girl Other Information That Helps Us Care for You: No Feels Safe at Home: Yes Safety Concerns: Feels Safe At This Time Childhood Exposure to Second-Hand Smoke: No Diet: regular during the past year weight has: remained stable Dental Care, Regularly: Yes Physical Activity Frequency: Daily Seatbelt Use: always Sunscreen Use: Yes Assistive Devices: Cane and Walker Allergies Allergies Allergy/AdvReac Type Severity Reaction Status Date / Time fexofenadine AdvReac Intermediate Diarrhea Verified 08/26/25 13:14 [id number] AdvReac Intermediate hip and Verified 08/26/25 13:14 [From [facility]] thigh pain Home Meds Home Medications Medication Instructions Recorded Confirmed cod liver oil 1 cap PO QAM 07/01/18 08/26/25 cranberry extract 500 mg tablet 500 mg PO QAM 07/16/21 08/26/25 cyanocobalamin (vitamin B-12) 1,000 mcg PO QAM 07/16/21 08/26/25 1,000 mcg tablet,extended release (Vitamin B-12 ER) magnesium 250 mg tablet 250 mg PO BID 07/16/21 08/26/25 turmeric root extract 500 mg 500 mg PO QAM 07/16/21 08/26/25 capsule vitamin B complex 1 tab PO 3XWK 07/16/21 08/26/25 ascorbate calcium (vitamin C) 500 500 mg PO QAM 01/13/24 08/26/25 mg tablet Nerve Savior 1 cap PO 1200 08/27/24 08/26/25 Juice Plus 4 tab PO QAM 01/17/25 08/26/25 cephalexin 500 mg capsule 500 mg PO Q6H for 7 days 08/26/25 08/26/25 cholecalciferol (vitamin D3) 100 4,000 unit PO QAM 08/26/25 08/26/25 mcg (4,000 unit) tablet Previous Rx's Medication Instructions Recorded albuterol sulfate 90 mcg/actuation 1 - 2 puff inhalation Q6H PRN 09/01/23 aerosol inhaler (ProAir HFA) shortness of breath #8.5 grams lisinopril 2.5 mg tablet 1.25 mg (1/2 x 2.5 mg) PO BID #90 01/03/25 tabs levothyroxine 100 mcg tablet 100 mcg PO DAILY #90 tabs 03/22/25 ropinirole 0.25 mg tablet 0.25 mg PO .q evening #30 tabs 07/27/25 Results & Data (ED) Vital Signs Vital Signs - 24 hr 08/26/25 15:10 08/26/25 15:10 08/26/25 15:30 Temperature 36.8 C Temperature Source Oral Pulse Rate 120 H 95 H Pulse Rate from SpO2 Sensor 101 H Respiratory Rate 16 21 Blood Pressure 124/81 103/67 Blood Pressure Mean 95 79 Pulse Oximetry 95 94 93 Oxygen Delivery Method Room Air Room Air Sepsis Recent Fever Within 48 Hours No Sepsis New/Unexplained Change in Mental Status N/A Sepsis Action Taken by Nursing No Action Required 08/26/25 15:36 08/26/25 16:00 08/26/25 16:10 Temperature Temperature Source Pulse Rate 111 H 57 L 57 L Pulse Rate from SpO2 Sensor Respiratory Rate 20 Blood Pressure 114/76 Blood Pressure Mean 97 Pulse Oximetry 94 Oxygen Delivery Method Sepsis Recent Fever Within 48 Hours Sepsis New/Unexplained Change in Mental Status Sepsis Action Taken by Nursing Laboratory Data 08/26/25 15:20 08/26/25 15:20 Lab Results 08/26/25 08/26/25 Range/Units 15:20 17:03 WBC 13.70 H (4.8-10.8) K/ul RBC 4.06 L (4.20-5.40) M/uL Hgb 12.4 (12.0-16.0) g/dl Hct 37.7 (37.0-47.0) % MCV 92.9 (80.0-100.0) fL MCH 30.5 (25.0-34.0) pg MCHC 32.9 (32.0-36.0) g/dL RDW Std Deviation 48.2 H (36.4-46.3) fL RDW Coeff of Fawad 14.3 (11.5-14.5) % Plt Count 318 (130-400) K/uL MPV 11.4 (9.4-12.4) fL Immature Gran % (Auto) 0.5 % Neut % (Auto) 79.3 % Lymph % (Auto) 9.6 % [place] % (Auto) 8.5 % Eos % (Auto) 1.6 % Baso % (Auto) 0.5 % Neut # (Auto) 10.87 H (1.40-6.50) K/uL Lymph # (Auto) 1.31 (1.20-3.40) K/uL [place] # (Auto) 1.16 H (0.11-0.59) K/uL Eos # (Auto) 0.22 (0.00-0.50) K/uL Baso # (Auto) 0.07 (0.00-0.20) K/uL Immature Gran # (Auto) 0.07 (0.01-0.20) K/uL Sodium 138 (136-145) mmol/L Potassium 3.6 (3.5-5.1) mmol/L Chloride 104 (98-107) mmol/L Carbon Dioxide 26 (21-32) mmol/L Anion Gap 8 (3-11) BUN 40 H (6-23) mg/dl Creatinine 1.33 H (0.6-1.2) mg/dl Est Cr Clr Drug Dosing 28.0 ml/min eGFR 38.48 BUN/Creatinine Ratio 30.1 H (10-20) Glucose 114 H (70-99(Fasting)) mg/dl Calcium 10.2 (8.6-10.3) mg/dl Magnesium 2.5 H (1.7-2.4) mg/dl Total Bilirubin 0.4 (0.2-1.0) mg/dl AST 18 (13-39) U/L ALT 13 (7-52) U/L Alkaline Phosphatase 56 (34-104) U/L Troponin I High Sens 191.7 H* 200.8 H* (0-14) pg/ml Total Protein 6.9 (6.0-8.3) gm/dl Albumin 3.6 (3.4-5.0) gm/dl Globulin 3.3 (2.5-4.0) gm/dl Albumin/Globulin Ratio 1.1 (0.9-2) Lipase 13 (11-82) U/L TSH 2.974 (0.300-4.500) uIu/ml Administered Medications Acetaminophen (Acetaminophen 325 Mg Tab) 650 mg PO Q4H PRN PRN Reason: Pain or Fever Stop: 09/25/25 18:46 Last Admin: 08/26/25 20:09 Dose: 650 mg Documented By: GT Apixaban (Apixaban 5 Mg Tablet) 5 mg PO BID LEROY Stop: 09/25/25 20:59 Last Admin: 08/26/25 20:08 Dose: 5 mg Documented By: GT Cephalexin HCl (Cephalexin 500 Mg Cap) 500 mg PO BID LEROY; Protocol Stop: 08/30/25 21:01 Last Admin: 08/26/25 20:07 Dose: 500 mg Documented By: GT Lactated Ringer's (Lr) 1,000 mls @ 80 mls/hr IV .[id number] LEROY Stop: 08/27/25 06:29 Last Admin: 08/26/25 20:06 Dose: 80 mls/hr Documented By: GT Melatonin (Melatonin 3 Mg Tab) 3 mg PO HS PRN PRN Reason: Sleep Stop: 09/25/25 18:46 Last Admin: 08/26/25 20:09 Dose: 3 mg Documented By: GT Metoprolol Tartrate (Metoprolol Tartrate 25 Mg Tab) 12.5 mg PO BID LEROY Stop: 09/25/25 20:59 Last Admin: 08/26/25 20:07 Dose: 12.5 mg Documented By: [facility] Ropinirole HCl (Ropinirole Hcl 0.25 Mg Tablet) 0.25 mg PO QPM LEROY Stop: 09/25/25 20:59 Last Admin: 08/26/25 20:07 Dose: 0.25 mg Documented By: [facility] Discontinued Medications Diltiazem HCl (Diltiazem Hcl 5 Mg/Ml 5 Ml Vial) 10 mg IV NOW STA Stop: 08/26/25 15:11 Last Admin: 08/26/25 15:16 Dose: 10 mg Documented By: MARIO Co-signed By: MATHIEU Diltiazem HCl 125 mg/ Dextrose 125 mls @ 5 mls/hr IV .Q24H LEROY; Protocol Stop: 09/25/25 15:14 Last Admin: 08/26/25 18:08 Dose: Not Given Documented By: Miscellaneous (Stat Iv Infusion Titration Per Protocol) 1 each N/A NOW STA Stop: 08/26/25 15:11 Last Admin: 08/26/25 19:15 Dose: Not Given Documented By: [facility] Imaging Data Radiologist's Impression: Chest X-Ray 08/26/25 15:10 XR chest 1V portable CLINICAL HISTORY: Chest pain, nonspecific COMPARISON STUDY: 01/04/2025 FINDINGS: The heart remains enlarged. There is no failure. Increased basilar markings are likely atelectatic. There is no lobar consolidation. There is no pneumothorax. There are no large pleural effusions. An event recorder projects over the left cardiac apex.. IMPRESSION: 1. Cardiomegaly. Basilar opacities likely atelectatic. No evidence of failure. ACT 112: Negative or not required by law. Electronically signed by: Lonny Coles M.D. 08/26/2025 3:32 PM Discharge Plan Visit Data Chief Complaint: Cardiac Assessment ED Provider: Jamie Christensen Discharge Problem: Atrial fibrillation with rapid ventricular response, Elevated troponin Patient Disposition: Admitted As Inpatient Condition: Fair Discharge Instructions Interventions: ED Discharge Assessment Last Done: 08/26/25 18:20
--- NOTE | 2025-08-26 15:34 | XRay Report ---
XR chest 1V portable CLINICAL HISTORY: Chest pain, nonspecific COMPARISON STUDY: 01/04/2025 FINDINGS: The heart remains enlarged. There is no failure. Increased basilar markings are likely atel ectatic. There is no lobar consolidation. There is no pneumothorax. There are no large pleural effusi ons. An event recorder projects over the left cardiac apex.. IMPRESSION: 1. Cardiomegaly. Basilar opacities likely atelectatic. No evidence of failure. ACT 112: Negative or not required by law. Electronically signed by: Lonny Coles M.D. 08/26/2025 3:32 PM
[2025-08-26 15:42] LABS: Hematocrit (blood only) 37.7 % (37.0-47.0); Hemoglobin 12.4 g/dl (12.0-16.0); Immature Granulocytes # (auto) 0.07 K/uL (0.01-0.20); Immature Granulocytes % (auto) 0.5 %; Mean Corpuscular Hemoglobin 30.5 pg (25.0-34.0); Mean Corpuscular Volume 92.9 fL (80.0-100.0); Platelet Count 318 K/uL (130-400); RDW Standard Deviation 48.2 fL (36.4-46.3); Red Blood Count 4.06 M/uL (4.20-5.40); White Blood Count 13.70 K/ul (4.8-10.8)
[2025-08-26 16:01] LABS: Alanine Aminotransferase 13.0 U/L (7-52); Albumin Globulin Ratio 1.1 (0.9-2); Albumin Level 3.6 gm/dl (3.4-5.0); Alkaline Phosphatase 56.0 U/L (34-104); Anion Gap 8.0 (3-11); Bilirubin,Total 0.4 mg/dl (0.2-1.0); Blood Urea Nitrogen 40.0 mg/dl (6-23); Calcium 10.2 mg/dl (8.6-10.3); Carbon Dioxide 26.0 mmol/L (21-32); Chloride 104.0 mmol/L (98-107); Creatinine Clr Calc Pharmacy 28.0 ml/min; Globulin 3.3 gm/dl (2.5-4.0); Glucose 114.0 mg/dl (70-99(Fasting)); Lipase 13.0 U/L (11-82); Potassium 3.6 mmol/L (3.5-5.1); Sodium 138.0 mmol/L (136-145); Total Protein 6.9 gm/dl (6.0-8.3)
--- NOTE | 2025-08-26 16:04 | History & Physical Report ---
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 Patient present to her PCP office today for follow up appointment from her recent ER visit with a fall resulting in elbow lac and hematoma. Found to be in afib RVR on EKG and sent to ER. Converted after push of diltiazem, but trop came back at 191. admitted for cardiac monitoring and further workup #Afib RVR | Elevated troponin | HTN - noticed this morning at PCP office, given diltazem bolus in ER and converted, drip was not started. Check Mag and TSH Check Echo Hold home lisinopril and start metoprolol tartrate 12.5mg BID and titrate as needed CHASVASC - 4, discussed anitcoagulation, will plan to start Eliquis, cardiology follow up in ~ 1 month, interrogate loop recorder and discuss if needs to be continued, pt at high risk for falls troponin 191, repeat pending. Trend as appropriate. Suspect secondary to demand from A-fib RVR #ANTONOI creatinine 1.33 on admission with baseline ~ 1 1 L LR, encourage p.o. fluids #hypothyroid - no recent dose adjustment TSH as above continue home Synthroid dose #Recent fall with Elbow lac continue prophylactic keflex #Asthma - no acute exacerbation Prn albuterol dispo: Admit to PCU DVT prophylaxis: Start Eliquis updated at bedside on admission History of Present Illness Chief Complaint: afib RVR Primary Care Provider: Farhan Vines MD Rubi is a 89F with a PMHx of asthma, HTN, PMR, hypothyroidism, prediabetes, osteoarthritis, osteoporosis and Recurrent Traumatic Syncope s/p Medtronic LINQ II Loop Recorder Implantation 02/08/22. Patient present to her PCP office today for follow up appointment from her recent ER visit with a fall resulting in elbow lac and hematoma. Found to be in afib RVR on EKG. Patient denies palpitations or any illness symptoms. She does have chest pain however this is very reproducible and worse with a deep breath. She reports this has been going on since her recent fall but has been gradually getting better every day. Denies any cough or congestion. No history of A-fib she has had a loop recorder since 2021, had an appointment with cardiology on 08/03 and no evidence of A-fib at that time. She is on Keflex for primary prevention of infection with her recent elbow laceration. She has not had any recent dose adjustments to her Synthroid. She denies lightheaded or dizziness. She does not smoke and only drinks very very occasionally. Uses a cane at baseline she wishes to be a full code Allergies Allergy/AdvReac Type Severity Reaction Status Date / Time fexofenadine AdvReac Intermediate Diarrhea Verified 08/26/25 13:14 romosozumab-aqqg AdvReac Intermediate hip and Verified 08/26/25 13:14 [From [facility]] thigh pain Home Medications Medication Instructions Recorded Confirmed Type cod liver oil 1 cap PO QAM 07/01/18 08/29/25 History cranberry extract 500 mg tablet 500 mg PO QAM 07/16/21 08/29/25 History cyanocobalamin (vitamin B-12) 1,000 mcg PO QAM 07/16/21 08/29/25 History 1,000 mcg tablet,extended release (Vitamin B-12 ER) magnesium 250 mg tablet 250 mg PO BID 07/16/21 08/29/25 History turmeric root extract 500 mg 500 mg PO QAM 07/16/21 08/29/25 History capsule vitamin B complex 1 tab PO 3XWK 07/16/21 08/29/25 History albuterol sulfate 90 mcg/actuation 1 - 2 puff inhalation Q6H PRN 09/01/23 08/29/25 Rx aerosol inhaler (ProAir HFA) shortness of breath #8.5 grams ascorbate calcium (vitamin C) 500 500 mg PO QAM 01/13/24 08/29/25 History mg tablet Nerve Savior 1 cap PO 1200 08/27/24 08/29/25 History Juice Plus 4 tab PO QAM 01/17/25 08/29/25 History levothyroxine 100 mcg tablet 100 mcg PO DAILY #90 tabs 03/22/25 08/29/25 Rx ropinirole 0.25 mg tablet 0.25 mg PO .q evening #30 tabs 07/27/25 08/29/25 Rx cholecalciferol (vitamin D3) 100 4,000 unit PO QAM 08/26/25 08/29/25 History mcg (4,000 unit) tablet amoxicillin 500 mg-potassium 1 tab PO BID #14 tabs 08/27/25 08/29/25 Rx clavulanate 125 mg tablet (Augmentin) diltiazem HCl 120 mg 120 mg PO QAM #30 caps 08/30/25 Rx capsule,extended release 24 hr (Cardizem CD) Past Med/Surg History Problem List (Updated 08/29/25 @ 11:49 by Alex Quinn MD) Primary hypothyroidism Sternum pain Elevated troponin (Acute) Atrial fibrillation with rapid ventricular response (Acute) Acute kidney injury Elevated troponin Atrial fibrillation with RVR Laceration of elbow, right (Acute) Elbow pain (Acute) CHI (closed head injury) (Acute) Fall (Acute) Hypertension Syncope and collapse - hx of- prior to loop recorder placement in 02/2022- no subsequent events since that time -follows with Dr. Snider Urge incontinence Chondrocalcinosis S/P eye surgery Lateral epicondylitis, right elbow History of spinal fracture (~08/07/22) Severe L3 burst fracture History of compression fracture of vertebral column (~08/07/22) multiple History of pelvic fracture (02/05/22) from fall Change in bowel function Chronic low back pain Medial epicondylitis of left elbow Skin tear of elbow without complication Optic nerve swelling History of loop recorder Rib pain on left side Diplopia S/P rotator cuff repair Rotator cuff tear, right Neuropathy Bronchiectasis Flank pain Asthma (Acute) Hearing loss (Acute) Osteoporosis (Acute) Vitamin D deficiency (Acute) Renal insufficiency PCP monitoring Hypothyroidism (Chronic) Polymyalgia rheumatica (Chronic) Pre-diabetes (Chronic) monitors Medical History Pre-diabetes Polymyalgia rheumatica Osteoporosis Hypothyroidism History of compression fracture of spine hx--happened after syncopal episode/fall 2021 Asthma inhaler prn History of anemia Olecranon fracture hx COVID-19 hx---resolved Hx of basal cell carcinoma Hx of bronchiectasis follows with Pulmonary/Allergy [facility]- stable at 09/2024 appt Osteoarthritis Solitary pulmonary nodule Lawrence's palsy ~2003 Surgical History History of arthroscopy of right shoulder History of loop recorder Hx of skin graft S/P right knee arthroscopy S/P colonoscopy S/P cataract surgery S/P parathyroidectomy S/P cholecystectomy S/P blepharoplasty S/P appendectomy Family History Mother Myocardial infarction Hypertension Family/Other Thyroid disorder Brother Thyroid disorder Sister Thyroid disorder Other Diabetes Heart disease No family history of adverse response to anesthesia Denies family history of Ovarian cancer Prostate cancer Breast cancer Colorectal cancer Social History Smoking Status: Former smoker Tobacco Type: Cigarettes Age Started Using Tobacco: 19; Age Quit Using Tobacco: 26; packs per day: 1; Second Hand Exposure: No; Do You Dip or Chew Tobacco: No; Hx Alcohol Use: Yes Alcohol type: wine Alcohol Intake Frequency Comment: SOCIALLY Hx Substance Use: No Preferred Language: Korean Communication Ability: Effective Visual Impairment: No Limitations Hearing Ability: Normal Bag Presser Required: No Beliefs That Will Affect Care: None marital status: Current Living Situation: Spouse current occupational status: retired How many Children do You have: 2 How many Children do You have Comment: 1 boy 1 girl Feels Safe at Home: Yes Childhood Exposure to Second-Hand Smoke: No Diet: regular during the past year weight has: remained stable Dental Care, Regularly: Yes Physical Activity Frequency: Daily Seatbelt Use: always Sunscreen Use: Yes Assistive Devices: Cane, Denture - Upper, Denture - Lower, Glasses, Hearing Aid - Bilateral and Walker Review of Systems Review of Systems: All systems reviewed & are unremarkable except as noted in Subjective Physical Exam Physical Exam: General: NAD, VS as above Resp: normal respiratory effort, lungs clear to auscultation. chest wall tender to palpation CV: RRR, no murmur, Abd: normal bowel sounds, non tender, soft Extremities: Moves all extremities, bruising over right arm, dressing in place from recent elbow laceration, this was not removed. Bruising over right eye with signs of healing. Trace lower extremity edema, nonpitting Neuro: A&O x3, Results & Data Results & Data Vital Signs (Past 12 Hours) Vital Signs Temp Pulse Resp BP Pulse Ox O2 Del Method 08/26/25 15:36 111 H 08/26/25 15:30 95 H 21 103/67 93 08/26/25 15:10 94 Room Air 08/26/25 15:10 98.2 F 120 H 16 124/81 95 Room Air Laboratory Results CBC, chemistry, mag reviewed Troponin reviewed Diagnostic Findings chest x-ray reviewed Supervising Physician Co-Signing Physician Notes Attending Attestation and Admit Note: Pt seen/examined, chart reviewed, care plan d/w CHRISSY Tolliver. I agree w/ the carcamo components of her admission documentation. 89yo female with asthma, HTN, h/o PMR, hypothyroidism, prediabetes, osteoarthritis, osteoporosis and episodes of syncope. Due to syncope without a specific cause she had a Medtronic loop recorder implanted in 2021. She follows with [facility] for the loop recorder. Of note - she had a recent fall with head injury on 08/23 necessitating a visit to our ER. CT head was negative for ICH, etc. She suffered an elbow laceration and had this repaired in the ER on 08/23. She presented today to her PCP's office for follow-up from the 08/23 ER visit and was found to be in rapid a.fib. She was referred to the ER for evaluation. During her work-up in the ER she spontaneously converted back to NSR. Troponin was elevated on blood work and we were asked to admit Ms Zacarias for observation. PMH/PSH/allergies/meds/sochx - reviewed VSS, afebrile gen - NAD head - ecchymoses right lower forehead, right periorbital region, and right upper cheek skin - elbow laceration well-approximated on right neck - no JVD heart - RRR, s1 s2, no murmur lungs - CTA b/l abd - soft NT ND BS+ ext - no edema, pulses 2+ b/l feet labs reviewed EKG - a.fib with RVR, LVH, left axis deviation, I/AVL ST segment depression A/P: 1. atrial fibrillation with RVR - already converted back to NSR 2. recent fall with head injury 3. right elbow laceration s/p repair on 08/23 4. loop recorder status 5. HTN 6. asthma 7. elevated troponin - likely myocardial demand ischemia 2nd to rapid a.fib -serial troponins -echo -interrogate loop recorder -other plans per Ms Sharee Snow MD PG Care Time/CCT Total # of Minutes Spent Total Time Spent with Patient: Total time spent is greater than 50% in coordination of care (as documented) at patient's floor/unit and/or counseling patient: Coding Level of Care Code 57751 INT INP/OBS CARE 3/75MIN Diagnoses Atrial fibrillation with RVR I48.91 Elevated troponin R79.89 Hypertension, unspecified type I10 Hypertension type: unspecified Acute kidney injury N17.9 (3) Hypertension Hypertension type: unspecified Qualified Code(s): I10 - Essential (primary) hypertension"
[2025-08-26 16:46] LABS: Magnesium 2.5 mg/dl (1.7-2.4)
[2025-08-26 17:02] LABS: Thyroid Stimulating Hormone 2.974 uIu/ml (0.300-4.500)
[2025-08-26] MEDS ORDERED: ONDANSETRON INJ 2 MG/ML 2 ML VIAL IV PRN (18:47)
[2025-08-26] MEDS ORDERED: ALBUTEROL HFA 8 GM INHALER INH PRN (18:47)
[2025-08-26] MEDS: STAT IV Infusion **Titration per Protocol STA (19:15)
[2025-08-26] MEDS: LACTATED RINGER'S 1,000 ML IV SCH (20:06)
[2025-08-26] MEDS: METOPROLOL TARTRATE 25 MG TAB PO SCH (20:07)
[2025-08-26] MEDS: APIXABAN 5 MG TABLET PO SCH (20:08)
[2025-08-26] MEDS: MELATONIN 3 MG TAB PO PRN (20:09)
[2025-08-26] MEDS: ACETAMINOPHEN 325 MG TAB PO PRN (20:09)
--- NOTE | 2025-08-26 21:45 | Electrocardiogram Report ---
Test Reason : Blood Pressure : */* mmHG Vent. Rate : 122 BPM Atrial Rate : * BPM P-R Int : * ms QRS Dur : 110 ms QT Int : 336 ms P-R-T Axes : * -18 145 degrees QTcB Int : 478 ms Atrial fibrillation with rapid ventricular response Moderate voltage criteria for LVH, may be normal variant ( R in aVL , Allen product ) Abnormal ECG When compared with ECG of 04-Jan-2025 11:04, Atrial fibrillation has replaced Sinus rhythm Vent. rate has increased by [address] more depressed Lateral leads T wave inversion now evident in Lateral leads Confirmed by Costa Merritt ([id number]) on 08/26/2025 9:45:40 PM Referred By: Confirmed By: Costa Merritt
[2025-08-27] MEDS: LEVOTHYROXINE SODIUM 100 MCG TABLET PO SCH (05:20)
[2025-08-27 06:24] LABS: Hematocrit (blood only) 32.1 % (37.0-47.0); Hemoglobin 10.8 g/dl (12.0-16.0); Mean Corpuscular Hemoglobin 31.4 pg (25.0-34.0); Mean Corpuscular Volume 93.3 fL (80.0-100.0); Platelet Count 270 K/uL (130-400); RDW Standard Deviation 48.7 fL (36.4-46.3); Red Blood Count 3.44 M/uL (4.20-5.40); White Blood Count 10.28 K/ul (4.8-10.8)
[2025-08-27 06:39] LABS: Anion Gap 7.0 (3-11); Blood Urea Nitrogen 40.0 mg/dl (6-23); Calcium 9.1 mg/dl (8.6-10.3); Carbon Dioxide 25.0 mmol/L (21-32); Chloride 107.0 mmol/L (98-107); Creatinine Clr Calc Pharmacy 25.7 ml/min; Glucose 106.0 mg/dl (70-99(Fasting)); Magnesium 2.2 mg/dl (1.7-2.4); Potassium 3.9 mmol/L (3.5-5.1); Sodium 139.0 mmol/L (136-145)
--- NOTE | 2025-08-27 12:25 | XCELERA ---
[id number]
--- NOTE | 2025-08-27 12:40 | Communication Note ---
Date of Service: August 27, 2025 I performed device interrogation of her implanted loop recorder. 1 extended episode of atrial fibrillation on 08/26/2025. High ventricular rates. No other arrhythmias or activations.
--- NOTE | 2025-08-27 14:15 | CT Scan Report ---
EXAM: CT Chest Without Intravenous Contrast INDICATION: Recent fall. Sternal pain. TECHNIQUE: Axial computed tomography images of the chest without intravenous contrast. Sagittal and coronal reformatted images were created and reviewed. This CT exam was performed using one or more of the following dose reduction techniques: automated exposure control, adjustment of the mA and/or kV according to patient size, and/or use of iterative reconstruction technique. COMPARISON: No relevant prior studies available. FINDINGS: Limitations: None. Lungs and pleural spaces: Small layering bilateral pleural effusions present. No pneumothorax. There is central airway thickening most notable in the lower lobes with patchy dependent infiltrates in each lower lobe. No bronchiectasis, honeycombing or reticulation. No mass. Heart: Cardiomegaly. No right heart strain. No pericardial effusion. Thyroid: No abnormality noted. Bones/joints: The bones are diffusely demineralized. Degenerative changes noted throughout the spine. No acute osseous abnormality. In particular, the sternum is intact. Soft tissues: No significant abnormality noted. Vasculature: Atherosclerotic calcification of the aorta and branches. No aneurysm. Lymph nodes: No enlarged lymph nodes. Gallbladder and bile ducts: Cholecystectomy. No ductal dilation or stone noted. Kidneys and ureters: Simple cyst left kidney. No further assessment required. IMPRESSION: 1. No sternal fracture. 2. Bronchitis, small pleural effusions and bilateral lower lobe atelectasis or pneumonia. ACT 112: N/A Electronically signed by Leatha Rankin 08-27-2025 2:15 PM
[2025-08-27 15:43] VITALS: BP 145/64; RESP 23; TEMP 98.4; O2SAT 95
--- NOTE | 2025-08-27 16:58 | Electrocardiogram Report ---
Test Reason : Blood Pressure : */* mmHG Vent. Rate : 58 BPM Atrial Rate : 58 BPM P-R Int : 164 ms QRS Dur : 110 ms QT Int : 412 ms P-R-T Axes : 15 -14 38 degrees QTcB Int : 404 ms Sinus bradycardia Left ventricular hypertrophy with repolarization abnormality Abnormal ECG When compared with ECG of 26-Aug-2025 15:11, Sinus rhythm has replaced Atrial fibrillation Vent. rate has decreased by 64 bpm T wave inversion no longer evident in Lateral leads Confirmed by Alfonso Beatty ([id number]) on 08/27/2025 4:58:41 PM Referred By: REFERRED SELF Confirmed By: Alfonso Beatty
[2025-08-27 16:59] VITALS: PULSE 55
--- NOTE | 2025-08-27 16:59 | Discharge Summary ---
Discharge Summary Date of Service date of admission - August 26, 2025 date of discharge - August 27, 2025 Principal Dx & Hospital Course #1 = Principal Diagnosis (1) Atrial fibrillation with RVR: (2) Elevated troponin: (3) Hypertension: (4) Acute kidney injury: (5) Injury of face and neck: (6) Contusion of sternum: (7) Abnormal CT scan, chest: (8) Implantable loop recorder present: (9) Fall: (10) Laceration of elbow, right: Plan 89yo female with history of falls/syncope, asthma/bronchiectasis, HTN, PMR, hypothyroidism, prediabetes, osteoarthritis, osteoporosis and Medtronic LINQ II Loop Recorder Status (original implantation 02/08/22). Patient presented to her PCP's office today for follow up after having been in the ER (08/23/25) s/p fall resulting in right elbow laceration and head injury. CT head negative for ICH on 08/23/25. At her PCP's office was found to be in rapid afib and sent to the ER. While in the [facility] ER she converted back to NSR. Troponin was elevated at 191. She was subsequently admitted for observation and serial troponins. #Paroxysmal atrial fibrillation with RVR - -converted back to normal sinus rhythm while being evaluated in the ER -following admission she remained in NSR for the rest of her brief stay -she was placed on low-dose metoprolol tartrate 12.5mg BID but she did not tolerate this --> HRs were in the 40s/50s on the metoprolol -thus, she is NOT being sent home on any AV pietro agent -magnesium, potassium, and TSH levels were all wnl -echocardiogram showed preserved EF and normal valve function -loop recorder was interrogated - -NO paroxysmal a.fib/a.flutter was seen on 08/23 which was the day of her recent fall -recorder confirmed she was in a.fib for several hours on day of admission, 08/26/25 -no other a.fib/a.flutter seen in the weeks leading up to this admission -CHADS-VASc score is a 4 -ideally patient should take anticoagulation -however, with her recent head injury with significant facial trauma, I elected to defer sending her home on Eliquis or similar -I gave her handouts on a.fib, stroke risk related to a.fib, and Eliquis -recommended she discuss initiating Eliquis (or similar) at some point in the near-future after weighing risks vs benefits #Elevated troponin - -likely myocardial demand ischemia in setting of her rapid atrial fibrillation -peak troponin was 457, then falling to 284 -she never had ACS symptoms or signs #sternal pain - -patient reported ongoing pain since her fall on 08/23/25 -CT chest was obtained - no sternal fracture seen; no sternal hematoma found; no rib fracture seen -symptoms consistent with sternal contusion -tylenol prn -heat prn -etc #ANTONIO - -creatinine 1.33 on admission with baseline Cr ~1 -creatinine was 1.4 on day of discharge -advised holding lisinopril for 24 hours post-discharge, then resuming at that time -recommend repeating a BMP within 5 days of discharge to ensure stability #hypothyroidism - -TSH 2.9 -cont levothyroxine 100mcg daily #recent fall with RIGHT elbow laceration s/p repair on 08/23 - -see photo in this d/c summary -cont daily dressing and kerlix wrap (which is reminding patient to not bend the elbow to prevent the sutures from breaking) -had been taking prophylactic keflex as prescribed by the ER, but changing the keflex to augmentin (see below) -she has f/u with [facility] on 09/01 to recheck the elbow & the laceration #Asthma - -no acute exacerbation while hospitalized #abnormal chest CT - -chest CT - which was done to r/o sternal fracture, rib fracture, etc - showed the following: -Small layering bilateral pleural effusions present. No pneumothorax. There is central airway thickening most notable in the lower lobes with patchy dependent infiltrates in each lower lobe. -patient has a chronic cough, and she reported no change in such, but to cover for the possibility of a brewing pneumonia changed the keflex to augmentin x 7 days #ambulatory dysfunction / recent fall - -PT eval completed; johnny-walker use recommended while right elbow is healing Notes For Next Care Provider -cont daily dressing changes to right elbow laceration -f/u 09/01/25 with orthopedics to recheck the elbow -johnny-walker use while right elbow is healing -cont ongoing discussions re: pros/cons // risks/benefits of anticoagulation due to a.fib -BMP within 5 days to recheck creatinine Medication Changes From Visit -STOP cephalexin -START amoxicillin-clavulanate 500mg twice daily x 7 days Admission HPI Per Admitting Provider Rubi is a 89F with a PMHx of asthma, HTN, PMR, hypothyroidism, prediabetes, osteoarthritis, osteoporosis and Recurrent Traumatic Syncope s/p Medtronic LINQ II Loop Recorder Implantation 02/08/22. Patient present to her PCP office today for follow up appointment from her recent ER visit with a fall resulting in elbow lac and hematoma. Found to be in afib RVR on EKG. Patient denies palpitations or any illness symptoms. She does have chest pain however this is very reproducible and worse with a deep breath. She reports this has been going on since her recent fall but has been gradually getting better every day. Denies any cough or congestion. No history of A-fib she has had a loop recorder since 2021, had an appointment with cardiology on 08/03 and no evidence of A-fib at that time. She is on Keflex for primary prevention of infection with her recent elbow laceration. She has not had any recent dose adjustments to her Synthroid. She denies lightheaded or dizziness. She does not smoke and only drinks very very occasionally. Uses a cane at baseline she wishes to be a full code Discharge Exam gen - NAD, sitting in chair mouth - MMM face - ecchymoses over the right lower forehead, right paul-orbital region and right upper cheek neck - no JVD heart - RRR, s1 s2, no murmur lungs - b/l basilar rales (fine, dry), no wheezes, no increased work of breathing chest - tender to palpation over the lower portion of the sternum/xiphoid process area; no crepitus abd - soft NT ND BS+ ext - no edema, pulses 2+ b/l skin - right elbow laceration well-approximated, scant nonpurulent drainage from a single location in the center of the laceration, no surrounding erythema Discharge Plan Discharge Items Patient Disposition: Home - Home Health Services Reason For Visit: atrial fibrillation Discharge Diagnosis: 1. episode of atrial fibrillation - resolved 2. recent fall with head injury 3. right elbow laceration 4. chest wall contusion from recent fall; no broken ribs or broken breastbone on CT scan 5. hypothyroidism Activity: As commented below Activity Comment: avoid excessive bending of your right elbow until sutures are removed Non-emergency contact: Primary Care Provider and Specialist Call non-emergency contact if: you have any medication questions, your symptoms worsen, your pain is not controlled, your pain is worsening, your wound has increased redness, your wound has increased drainage and your wound pain has increased Follow-up/Referrals: Farhan Vines MD [Primary Care Provider] - 09/09/25 10:30 am Moreno Costello MD [Physician] - 09/07/25 10:45 am Jazmín Salinas PA-C [Physician Product Promoter Sales Person] - 09/01/25 10:30 am (recheck of right elbow) Diet: Regular Addtl Attending Provider Instructions: Ms Zacarias, You were hospitalized due to newly discovered atrial fibrillation. See handouts on atrial fibrillation. While in the emergency room you converted back to normal rhythm. Until hospital discharge you remained in normal rhythm. Interrogation of your loop recorder showed that you have NOT had any other episodes of atrial fibrillation in the last few weeks (including on the day of your recent fall). Your echocardiogram showed normal heart function. CT chest showed no broken ribs and no broken sternum/breastbone from your recent fall. Incidentally the CT showed a question of pneumonia at the bottom of your lungs. Physical therapy saw you in consult and recommended the use of the johnny-walker that you already have at home. They also recommended home health services. I will have our director of social work staff set you up with home health. Due to the recent fall with head injury I am a little hesitant to recommend Eliquis blood thinner right away for your atrial fibrillation. Please see handout on Eliquis as well as handout on "Afib- preventing stroke" for more information, benefits/risks of blood thinning medicine, etc. You were taking cephalexin medicine because of the laceration on your elbow. I am changing this antibiotic to amoxicillin-clavulanate, 1 tablet twice daily x 7 days in the event you have a brewing pneumonia in the lungs. Again, please: -STOP the cephalexin -START amoxicillin-clavulanate 500mg twice daily x 7 days; ideally take your first dose TONIGHT. -most common side effect - diarrhea Continue your dressings on the right elbow as you have been doing and follow-up with orthopedics on September 01 as scheduled. Follow-up - see separate section Return to [place] if - -you have fevers over 100 degrees -you have worsening drainage from the right elbow, more pain, more swelling, redness, etc. -you have severe diarrhea (3 or more liquid stools in 24 hours) -you have concerns you are back in atrial fibrillation (palpitations, rapid heart beating, chest pain, shortness of breath, etc) -any other concerns It was our pleasure to care for you! Pending Studies at Discharge: No Stand-Alone Forms: [facility] [employer], Smoking Cessation Medications and DC Order Prescriptions: New amoxicillin-pot clavulanate [Augmentin] 500-125 mg tablet 1 tab PO BID Qty: 14 0RF Rx Instructions: take with food Continued cod liver oil capsule 1 cap PO QAM Patient Comments: 08/29- otc unable to verify levothyroxine 100 mcg tablet 100 mcg PO DAILY Qty: 90 3RF albuterol sulfate [ProAir HFA] 90 mcg/actuation HFA aerosol inhaler 1 - 2 puff INH Q6H PRN (Reason: shortness of breath) Qty: 8.5 11RF Patient Comments: 08/29- no fill history unable to verify ascorbate calcium (vitamin C) 500 mg tablet 500 mg PO QAM Patient Comments: 08/29- otc unable to verify ropinirole 0.25 mg tablet 0.25 mg PO .q evening Qty: 30 2RF Nerve Savior capsule 1 cap PO 1200 Patient Comments: 08/29- otc unable to verify Prolia 60 mg/mL syringe 60 mg subcut ONCE Qty: 1 0RF Patient Comments: 08/29- no fill history unable to verify vitamin B complex Tablet 1 tab PO 3XWK Patient Comments: 08/29- otc unable to verify magnesium 250 mg Tablet 250 mg PO BID Patient Comments: 08/29- otc unable to verify turmeric root extract 500 mg Capsule 500 mg PO QAM Patient Comments: 08/29- otc unable to verify cranberry extract 500 mg Tablet 500 mg PO QAM Patient Comments: 08/29- otc unable to verify cyanocobalamin (vitamin B-12) [Vitamin B-12] 1,000 mcg Tablet Extended Release 1,000 mcg PO QAM Patient Comments: 08/29- otc unable to verify cholecalciferol (vitamin D3) 100 mcg (4,000 unit) Tablet 4,000 unit PO QAM Patient Comments: 08/29- otc unable to verify Juice Plus 4 tab PO QAM Patient Comments: 08/29- otc unable to verify Discontinued cephalexin 500 mg capsule 500 mg PO Q6H Rx Instructions: filled 08/23 No Action diltiazem HCl [Cardizem CD] 120 mg Capsule,Extended Release 24hr 120 mg PO QAM Qty: 30 0RF Discharge Orders: Discharge Order (Routine); Ordered 08/27/25 Ordered By: Marcial Wiggins/Other Patient Handouts: Apixaban Oral Tablet, AFib Preventing Stroke, AFib, ED Fall Prevention Admission Data Admit Date/Time: 08/26/25 17:06 Attending Provider: Marcial Snow Admit Provider: Marcial Snow Primary Care Provider: Farhan Vines Other Providers: Marcial Snow; [facility],Home Healthcare Other Interventions: Discharge Summary Assessment (RN) Last Done: 08/27/25 17:00 Hospital Stay Data Consultations Physical therapy Procedures Performed 1. loop recorder interrogation 2. echocardiogram - * EF 60-65% * elevated pulmonary pressures - 40-50mmHg * mildly dilated IVC * normal valve function * normal LV wall motion Diagnostic Imagining Performed Chest X-Ray 08/26/25 15:10 XR chest 1V portable CLINICAL HISTORY: Chest pain, nonspecific COMPARISON STUDY: 01/04/2025 FINDINGS: The heart remains enlarged. There is no failure. Increased basilar markings are likely atelectatic. There is no lobar consolidation. There is no pneumothorax. There are no large pleural effusions. An event recorder projects over the left cardiac apex.. IMPRESSION: 1. Cardiomegaly. Basilar opacities likely atelectatic. No evidence of failure. ACT 112: Negative or not required by law. Electronically signed by: Lonny Coles M.D. 08/26/2025 3:[address] 08/27/25 12:39 EXAM: CT Chest Without Intravenous Contrast INDICATION: Recent fall. Sternal pain. TECHNIQUE: Axial computed tomography images of the chest without intravenous contrast. Sagittal and coronal reformatted images were created and reviewed. This CT exam was performed using one or more of the following dose reduction techniques: automated exposure control, adjustment of the mA and/or kV according to patient size, and/or use of iterative reconstruction technique. COMPARISON: No relevant prior studies available. FINDINGS: Limitations: None. Lungs and pleural spaces: Small layering bilateral pleural effusions present. No pneumothorax. There is central airway thickening most notable in the lower lobes with patchy dependent infiltrates in each lower lobe. No bronchiectasis, honeycombing or reticulation. No mass. Heart: Cardiomegaly. No right heart strain. No pericardial effusion. Thyroid: No abnormality noted. Bones/joints: The bones are diffusely demineralized. Degenerative changes noted throughout the spine. No acute osseous abnormality. In particular, the sternum is intact. Soft tissues: No significant abnormality noted. Vasculature: Atherosclerotic calcification of the aorta and branches. No aneurysm. Lymph nodes: No enlarged lymph nodes. Gallbladder and bile ducts: Cholecystectomy. No ductal dilation or stone noted. Kidneys and ureters: Simple cyst left kidney. No further assessment required. IMPRESSION: 1. No sternal fracture. 2. Bronchitis, small pleural effusions and bilateral lower lobe atelectasis or pneumonia. ACT 112: N/A Electronically signed by Leatha Rankin 08-27-2025 2:15 PM Pending Results Patient Have Any Pending Studies at Discharge: No Discharge Instructions Given to Patient (Per Discharging Provider) Ms Zacarias, You were hospitalized due to newly discovered atrial fibrillation. See handouts on atrial fibrillation. While in the emergency room you converted back to normal rhythm. Until hospital discharge you remained in normal rhythm. Interrogation of your loop recorder showed that you have NOT had any other episodes of atrial fibrillation in the last few weeks (including on the day of your recent fall). Your echocardiogram showed normal heart function. CT chest showed no broken ribs and no broken sternum/breastbone from your recent fall. Incidentally the CT showed a question of pneumonia at the bottom of your lungs. Physical therapy saw you in consult and recommended the use of the johnny-walker that you already have at home. They also recommended home health services. I will have our director of social work staff set you up with home health. Due to the recent fall with head injury I am a little hesitant to recommend Eliquis blood thinner right away for your atrial fibrillation. Please see handout on Eliquis as well as handout on "Afib- preventing stroke" for more information, benefits/risks of blood thinning medicine, etc. You were taking cephalexin medicine because of the laceration on your elbow. I am changing this antibiotic to amoxicillin-clavulanate, 1 tablet twice daily x 7 days in the event you have a brewing pneumonia in the lungs. Again, please: -STOP the cephalexin -START amoxicillin-clavulanate 500mg twice daily x 7 days; ideally take your first dose TONIGHT. -most common side effect - diarrhea Continue your dressings on the right elbow as you have been doing and follow-up with orthopedics on September 01 as scheduled. Follow-up - see separate section Return to [facility] if - -you have fevers over 100 degrees -you have worsening drainage from the right elbow, more pain, more swelling, redness, etc. -you have severe diarrhea (3 or more liquid stools in 24 hours) -you have concerns you are back in atrial fibrillation (palpitations, rapid heart beating, chest pain, shortness of breath, etc) -any other concerns It was our pleasure to care for you! Total Time Total Time Spent Total Time Spent (In Minutes): 45 Total Time Includes: Examination of the Patient, Discharge Planning, Medication Reconciliation and Communication With Other Providers Coding Level of Care Code 80258 INP/OBS DISCH >30 MIN Diagnoses Atrial fibrillation with RVR I48.91 Elevated troponin R79.89 Hypertension, unspecified type I10 Hypertension type: unspecified Acute kidney injury N17.9 Injury of face and neck S19.9XXA; S09.93XA Contusion of sternum S20.219A Abnormal CT scan, chest R93.89 Implantable loop recorder present Z95.818 Fall W19.XXXA Laceration of elbow, right S51.011A
== END 2025-08-27 17:32 | disposition home health service (06) | DRG 309 ==
LOC: ED 15:03 → 2E 17:06

== ENCOUNTER 2025-08-29 02:56 | Inpatient (IN) ==
[2025-08-29] MEDS: SODIUM CHLORIDE 0.9% 500 ML IV STA (03:06)
--- NOTE | 2025-08-29 03:10 | Emergency Department Note ---
Impression & Plan Atrial fibrillation with RVR Admission ED Provider Note HPI: History obtained from patient. The patient is a 89-year-old female who presents to the emergency department with a chief complaint of chest pain. Patient states that she has had chest pain since a fall earlier this week. She was diagnosed with a chest wall contusion. Patient states that tonight the pain seemed to to get worse and she was getting pain with deep breathing and therefore she contacted EMS. Upon their arrival the patient was noted to be in atrial fibrillation with RVR, she was given IV fluids and a dose of diltiazem in the field with some improvement in her tachycardia. On arrival here to the ED the patient is otherwise hemodynamically stable, heart rate is 122, patient is saturating well on room air on arrival. Patient states the pain has been constant since her fall last week, she did have a CT scan of the chest done just 2 days ago that did not show any evidence of sternal fracture or rib fractures. Patient states that the pain is in the middle of her chest and the lower part of her sternum. ROS: - Per HPI Differential Diagnosis: Tachyarrhythmia to include atrial fibrillation with RVR, SVT, pneumothorax, rib fractures, sternal fracture, hemothorax, NSTEMI, ACS, amongst other potential pathologies. *Outpatient medications and allergy history reviewed. PE: General: Alert, no acute distress HEENT: Normocephalic, trachea midline Eyes: Extraocular eye movement is intact, no scleral erythema Pulmonary: Clear to auscultation bilaterally, no wheezing Cardio: Tachycardic rate with irregular rhythm GI: Abdomen is soft to palpation : No suprapubic tenderness MSK: No evidence of trauma or malformation of the extremities, no edema Skin: No evidence of rash Neuro: Alert, no focal deficits Psychiatric: Cooperative INDEPENDENT INTERPRETATIONS: yardage control clerk: (As interpreted by myself): - An order was placed for continuous cardiac monitoring - Patient was noted to be in atrial fibrillation with a rate of 125 EKG: (As interpreted by myself): Rate: 116 Rhythm: Atrial fibrillation with RVR Intervals: Within normal limits ST changes: No ST elevation Time: 0300 Chest x-ray: (As interpreted by myself): No evidence of any pneumothorax or obvious rib fractures, small bilateral pleural effusions Interventions provided in ED: - IV fluid bolus, IV morphine, IV Zofran, IV metoprolol, IV diltiazem drip Medical Decision Making: IV was established and lab work obtained, patient was placed on ground operations superintendent. Patient was given a dose of IV metoprolol for her persistent atrial fibrillation with elevated ventricular rates. She was also given IV morphine and IV Zofran for her pain. Lab work shows a leukocytosis of 15.38, hemoglobin is stable at 11.4, platelet count is normal, CMP does not show any evidence of any critical findings. Troponin is elevated at 57.4 however this is down trended from 2 days ago when it was 284. Patient was also noted to have CT imaging of the chest without contrast that was just performed 2 days ago that did not show any evidence of sternal fracture where the patient was previously having her pain after her fall. Patient also requested a second dose of morphine while here in the ED. Her heart rate did transiently respond to IV metoprolol however she again became tachycardic in the 1 teens to 120s. She is not currently on any anticoagulation after her recent admission as there was concerned about starting her on anticoagulation after recent traumatic fall. At this time I did discuss the patient's presentation with on-call cardiology, Dr. Beatty, he recommended initiation of a diltiazem drip and they will consult with the patient on the floor. [facility] hospitalist service was therefore consulted for admission, patient was in agreement for admission and she was placed for admission in stable condition. Consultants/Discussions held with other healthcare providers: - Cardiology, Dr. Beatty - Hospitalist, Dr. Zee Disposition discussion held by myself with: - Patient * CRITICAL CARE TIME: ( 39 ) minutes - Stabilization of patient with tachyarrhythmia requiring IV medications for rate control, time spent at the bedside, interpretation of diagnostic studies including EKG, discussion with other physicians including cardiology, consultation with the hospitalist service arrangement of admission Diagnosis: 1. Atrial fibrillation with RVR, acute 2. Chest pain, acute, nonspecific 3. Elevated troponin, acute Disposition: Admission Arnie Mendes DO Emergency Medicine Past Med/Surg History Problem List (Updated 08/29/25 @ 05:18 by Arnie Mendes DO) Elevated troponin (Acute) Atrial fibrillation with rapid ventricular response (Acute) Acute kidney injury Elevated troponin Atrial fibrillation with RVR Laceration of elbow, right (Acute) Elbow pain (Acute) CHI (closed head injury) (Acute) Fall (Acute) Hypertension Syncope and collapse - hx of- prior to loop recorder placement in 02/2022- no subsequent events since that time -follows with Dr. Snider Urge incontinence Chondrocalcinosis S/P eye surgery Lateral epicondylitis, right elbow History of spinal fracture (~08/07/22) Severe L3 burst fracture History of compression fracture of vertebral column (~08/07/22) multiple History of pelvic fracture (02/05/22) from fall Change in bowel function Chronic low back pain Medial epicondylitis of left elbow Skin tear of elbow without complication Optic nerve swelling History of loop recorder Rib pain on left side Diplopia S/P rotator cuff repair Rotator cuff tear, right Neuropathy Bronchiectasis Flank pain Asthma (Acute) Hearing loss (Acute) Osteoporosis (Acute) Vitamin D deficiency (Acute) Renal insufficiency PCP monitoring Hypothyroidism (Chronic) Polymyalgia rheumatica (Chronic) Pre-diabetes (Chronic) monitors Medical History Pre-diabetes Polymyalgia rheumatica Osteoporosis Hypothyroidism History of compression fracture of spine hx--happened after syncopal episode/fall 2021 Asthma inhaler prn History of anemia Olecranon fracture hx COVID-19 hx---resolved Hx of basal cell carcinoma Hx of bronchiectasis follows with Pulmonary/Allergy [facility]- stable at 09/2024 appt Osteoarthritis Solitary pulmonary nodule Lawrence's palsy ~2003 Surgical History History of arthroscopy of right shoulder History of loop recorder Hx of skin graft S/P right knee arthroscopy S/P colonoscopy S/P cataract surgery S/P parathyroidectomy S/P cholecystectomy S/P blepharoplasty S/P appendectomy Family History Mother Myocardial infarction Hypertension Family/Other Thyroid disorder Brother Thyroid disorder Sister Thyroid disorder Other Diabetes Heart disease No family history of adverse response to anesthesia Denies family history of Ovarian cancer Prostate cancer Breast cancer Colorectal cancer Social History Smoking Status: Never smoker Tobacco Type: Cigarettes Age Started Using Tobacco: 19; Age Quit Using Tobacco: 26; packs per day: 1; Second Hand Exposure: No; Do You Dip or Chew Tobacco: No; Hx Alcohol Use: No Hx Substance Use: No Preferred Language: Maltese Communication Ability: Effective Visual Impairment: No Limitations Hearing Ability: Normal Presales Senior Specialist Required: No Beliefs That Will Affect Care: None marital status: Current Living Situation: Spouse current occupational status: retired How many Children do You have: 2 How many Children do You have Comment: 1 boy 1 girl Feels Safe at Home: Yes Childhood Exposure to Second-Hand Smoke: No Diet: regular during the past year weight has: remained stable Dental Care, Regularly: Yes Physical Activity Frequency: Daily Seatbelt Use: always Sunscreen Use: Yes Assistive Devices: Walker Allergies Allergies Allergy/AdvReac Type Severity Reaction Status Date / Time fexofenadine AdvReac Intermediate Diarrhea Verified 08/26/25 13:14 [id number] AdvReac Intermediate hip and Verified 08/26/25 13:14 [From [facility]] thigh pain Home Meds Home Medications Medication Instructions Recorded Confirmed cod liver oil 1 cap PO QAM 07/01/18 08/26/25 cranberry extract 500 mg tablet 500 mg PO QAM 07/16/21 08/26/25 cyanocobalamin (vitamin B-12) 1,000 mcg PO QAM 07/16/21 08/26/25 1,000 mcg tablet,extended release (Vitamin B-12 ER) magnesium 250 mg tablet 250 mg PO BID 07/16/21 08/26/25 turmeric root extract 500 mg 500 mg PO QAM 07/16/21 08/26/25 capsule vitamin B complex 1 tab PO 3XWK 07/16/21 08/26/25 ascorbate calcium (vitamin C) 500 500 mg PO QAM 01/13/24 08/26/25 mg tablet Nerve Savior 1 cap PO 1200 08/27/24 08/26/25 Juice Plus 4 tab PO QAM 01/17/25 08/26/25 cholecalciferol (vitamin D3) 100 4,000 unit PO QAM 08/26/25 08/26/25 mcg (4,000 unit) tablet Previous Rx's Medication Instructions Recorded albuterol sulfate 90 mcg/actuation 1 - 2 puff inhalation Q6H PRN 09/01/23 aerosol inhaler (ProAir HFA) shortness of breath #8.5 grams lisinopril 2.5 mg tablet 1.25 mg (1/2 x 2.5 mg) PO BID #90 01/03/25 tabs levothyroxine 100 mcg tablet 100 mcg PO DAILY #90 tabs 03/22/25 ropinirole 0.25 mg tablet 0.25 mg PO .q evening #30 tabs 07/27/25 amoxicillin 500 mg-potassium 1 tab PO BID #14 tabs 08/27/25 clavulanate 125 mg tablet (Augmentin) Results & Data (ED) Vital Signs Vital Signs - 24 hr 08/29/25 03:00 08/29/25 03:16 08/29/25 03:33 Temperature 36.9 C Temperature Source Oral Pulse Rate 122 H 122 H 125 H Pulse Rhythm Regular Pulse Strength Normal Respiratory Rate 14 Respiratory Effort / Characteristics Non-Labored Spontaneous Respiratory Depth Normal Respiratory Pattern Regular Blood Pressure 138/104 H 122/86 Blood Pressure Mean 115 Pulse Oximetry 94 Oxygen Delivery Method Room Air Sepsis Recent Fever Within 48 Hours No Sepsis New/Unexplained Change in Mental Status No Sepsis Action Taken by Nursing No Action Required 08/29/25 03:48 08/29/25 04:03 08/29/25 04:45 Temperature Temperature Source Pulse Rate 107 H 108 H 110 H Pulse Rhythm Pulse Strength Respiratory Rate 22 22 Respiratory Effort / Characteristics Respiratory Depth Respiratory Pattern Blood Pressure 98/63 L 98/63 L 107/57 L Blood Pressure Mean 74 73 Pulse Oximetry 94 95 Oxygen Delivery Method Sepsis Recent Fever Within 48 Hours Sepsis New/Unexplained Change in Mental Status Sepsis Action Taken by Nursing 08/29/25 05:00 Temperature Temperature Source Pulse Rate 101 H Pulse Rhythm Pulse Strength Respiratory Rate 26 H Respiratory Effort / Characteristics Respiratory Depth Respiratory Pattern Blood Pressure Blood Pressure Mean Pulse Oximetry 90 Oxygen Delivery Method Sepsis Recent Fever Within 48 Hours Sepsis New/Unexplained Change in Mental Status Sepsis Action Taken by Nursing Laboratory Data 08/29/25 03:39 08/29/25 03:39 Lab Results 08/29/25 Range/Units 03:39 WBC 15.38 H (4.8-10.8) K/ul RBC 3.78 L (4.20-5.40) M/uL Hgb 11.4 L (12.0-16.0) g/dl Hct 35.9 L (37.0-47.0) % MCV 95.0 (80.0-100.0) fL MCH 30.2 (25.0-34.0) pg MCHC 31.8 L (32.0-36.0) g/dL RDW Std Deviation 49.6 H (36.4-46.3) fL RDW Coeff of Fawad 14.3 (11.5-14.5) % Plt Count 353 (130-400) K/uL MPV 10.8 (9.4-12.4) fL Immature Gran % (Auto) 0.5 % Neut % (Auto) 86.5 % Lymph % (Auto) 4.1 % [place] % (Auto) 8.2 % Eos % (Auto) 0.3 % Baso % (Auto) 0.4 % Neut # (Auto) 13.32 H (1.40-6.50) K/uL Lymph # (Auto) 0.63 L (1.20-3.40) K/uL [place] # (Auto) 1.26 H (0.11-0.59) K/uL Eos # (Auto) 0.04 (0.00-0.50) K/uL Baso # (Auto) 0.06 (0.00-0.20) K/uL Immature Gran # (Auto) 0.07 (0.01-0.20) K/uL PT 10.5 (9.0-12.0) Seconds INR 1.0 (0.9-1.1) Sodium 139 (136-145) mmol/L Potassium 3.5 (3.5-5.1) mmol/L Chloride 108 H (98-107) mmol/L Carbon Dioxide 23 (21-32) mmol/L Anion Gap 8 (3-11) BUN 35 H (6-23) mg/dl Creatinine 1.35 H (0.6-1.2) mg/dl Est Cr Clr Drug Dosing 28.2 ml/min eGFR 37.80 BUN/Creatinine Ratio 25.9 H (10-20) Glucose 137 H (70-99(Fasting)) mg/dl Calcium 9.0 (8.6-10.3) mg/dl Magnesium 2.0 (1.7-2.4) mg/dl Total Bilirubin 0.7 (0.2-1.0) mg/dl AST 19 (13-39) U/L ALT 16 (7-52) U/L Alkaline Phosphatase 56 (34-104) U/L Troponin I High Sens 57.4 H* D (0-14) pg/ml Total Protein 6.4 (6.0-8.3) gm/dl Albumin 3.6 (3.4-5.0) gm/dl Globulin 2.8 (2.5-4.0) gm/dl Albumin/Globulin Ratio 1.3 (0.9-2) TSH 3.042 (0.300-4.500) uIu/ml Administered Medications Diltiazem HCl 125 mg/ Dextrose 125 mls @ 5 mls/hr IV .Q24H [facility]; Protocol Stop: 09/28/25 05:14 Last Admin: 08/29/25 05:18 Dose: 5 mg/hr, 5 mls/hr Documented By: INDY Co-signed By: KARMA Sodium Chloride (Nss) 500 mls @ 999 mls/hr IV .Q31M ONE Stop: 08/29/25 05:39 Last Admin: 08/29/25 05:13 Dose: 999 mls/hr Documented By: KARMA Discontinued Medications Sodium Chloride (Nss) 500 mls @ 999 mls/hr IV .Q31M STA Stop: 08/29/25 03:31 Last Infusion: 08/29/25 03:43 Dose: Infused Documented By: Admin: 08/29/25 03:06 Dose: 999 mls/hr Documented By: KARMA Metoprolol Tartrate (Metoprolol Tartrate 1 Mg/Ml Vial) 5 mg IV NOW STA Stop: 08/29/25 03:26 Last Admin: 08/29/25 03:33 Dose: 5 mg Documented By: KARMA Miscellaneous (Stat Iv Infusion Titration Per Protocol) 1 each N/A NOW STA Stop: 08/29/25 05:07 Last Admin: 08/29/25 05:18 Dose: Not Given Documented By: INDY Morphine Sulfate (Morphine Sulfate 2 Mg/Ml Carp) 2 mg IV NOW STA Stop: 08/29/25 03:26 Last Admin: 08/29/25 03:34 Dose: 2 mg Documented By: KARMA Morphine Sulfate (Morphine Sulfate 4 Mg/Ml 1 Ml Carp\Vial) 4 mg IV NOW STA Stop: 08/29/25 05:00 Last Admin: 08/29/25 05:04 Dose: 4 mg Documented By: KARMA Ondansetron HCl (Ondansetron Inj 2 Mg/Ml 2 Ml Vial) 4 mg IV NOW STA Stop: 08/29/25 03:26 Last Admin: 08/29/25 03:33 Dose: 4 mg Documented By: KARMA Imaging Data Radiologist's Impression: Chest X-Ray 08/29/25 03:01 EXAM: XR chest 1V portable CLINICAL HISTORY: Dysrhythmia. TECHNIQUE: An X-ray image of the chest was obtained in AP projection. COMPARISON: 08/27/2025 CT FINDINGS: Pulmonary Parenchyma: Chest leads are identified. Mild opacification is seen in the left lung lower zone/left costophrenic angle. Possible minimal haziness at the right costophrenic angle. No evidence of gross consolidation. No pulmonary nodules are identified. Prominent vessels are seen in both helen. Heart and Mediastinum: Heart size is enlarged. No mediastinal widening or masses. No hilar or mediastinal lymphadenopathy. Bony Thorax: Mild convexity of the thoracic curvature to the right side may be positional or due to rotation. Soft Tissues: Soft tissues overlying the chest wall are unremarkable. A loop recorder is noted. IMPRESSION: 1. Mild opacification is seen in the left lung lower zone/left costophrenic angle, likely due to minimal pleural effusion or thickening, with the possibility of atelectatic changes in the adjacent lung. The prior CT also showed mild left-sided pleural effusion with atelectatic changes. 2. Possible minimal haziness of the right costophrenic angle. Possibility of pleural thickening or a small amount of effusion cannot be excluded. 3. Prominent vessels are seen in both helen, likely due to vascular congestion. There are slightly more prominent left hilar vessels in the current examination. 4. Redemonstration of cardiomegaly without gross change. Electronically signed by Elio Escudero 08-29-2025 04:15 AM Discharge Plan Visit Data Chief Complaint: Cardiac Assessment Stated Complaint: chest pain, a-fib ED Provider: Arnie Mendes Discharge Problem: Atrial fibrillation with RVR Patient Disposition: Admitted As Inpatient Condition: Fair Forms Stand Alone Forms: idemama Prescriptions Prescriptions: No Action cod liver oil capsule 1 cap PO QAM Patient Comments: 08/26- otc unable to verify lisinopril 2.5 mg tablet 1.25 mg PO BID Qty: 90 3RF Hold Instructions: Resume on 08/28/25. levothyroxine 100 mcg tablet 100 mcg PO DAILY Qty: 90 3RF albuterol sulfate [ProAir HFA] 90 mcg/actuation HFA aerosol inhaler 1 - 2 puff INH Q6H PRN (Reason: shortness of breath) Qty: 8.5 11RF Patient Comments: 08/26- no fill history unable to verify ascorbate calcium (vitamin C) 500 mg tablet 500 mg PO QAM Patient Comments: 08/26- otc unable to verify ropinirole 0.25 mg tablet 0.25 mg PO .q evening Qty: 30 2RF Nerve Savior capsule 1 cap PO 1200 Patient Comments: 08/26- otc unable to verify Prolia 60 mg/mL syringe 60 mg subcut ONCE Qty: 1 0RF Patient Comments: 08/26- no fill history unable to verify vitamin B complex Tablet 1 tab PO 3XWK Patient Comments: 08/26- otc unable to verify magnesium 250 mg Tablet 250 mg PO BID Patient Comments: 08/26- otc unable to verify turmeric root extract 500 mg Capsule 500 mg PO QAM Patient Comments: 08/26- otc unable to verify cranberry extract 500 mg Tablet 500 mg PO QAM Patient Comments: 08/26- otc unable to verify cyanocobalamin (vitamin B-12) [Vitamin B-12] 1,000 mcg Tablet Extended Release 1,000 mcg PO QAM Patient Comments: 08/26- otc unable to verify cholecalciferol (vitamin D3) 100 mcg (4,000 unit) Tablet 4,000 unit PO QAM Patient Comments: 08/26- otc unable to verify amoxicillin-pot clavulanate [Augmentin] 500-125 mg tablet 1 tab PO BID Qty: 14 0RF Rx Instructions: take with food Juice Plus 4 tab PO QAM Patient Comments: 08/26- otc unable to verify Referrals Referrals: Farhan Vines MD [Primary Care Provider] -
[2025-08-29] MEDS: ONDANSETRON INJ 2 MG/ML 2 ML VIAL IV STA (03:33)
[2025-08-29] MEDS: METOPROLOL TARTRATE 1 MG/ML VIAL IV STA (03:33)
[2025-08-29] MEDS: MoRPHine SULFATE 2 MG/ML CARP IV STA (03:34)
[2025-08-29 03:55] LABS: Hematocrit (blood only) 35.9 % (37.0-47.0); Hemoglobin 11.4 g/dl (12.0-16.0); Immature Granulocytes # (auto) 0.07 K/uL (0.01-0.20); Immature Granulocytes % (auto) 0.5 %; Mean Corpuscular Hemoglobin 30.2 pg (25.0-34.0); Mean Corpuscular Volume 95.0 fL (80.0-100.0); Platelet Count 353 K/uL (130-400); RDW Standard Deviation 49.6 fL (36.4-46.3); Red Blood Count 3.78 M/uL (4.20-5.40); White Blood Count 15.38 K/ul (4.8-10.8)
[2025-08-29 04:12] LABS: Alanine Aminotransferase 16.0 U/L (7-52); Albumin Globulin Ratio 1.3 (0.9-2); Albumin Level 3.6 gm/dl (3.4-5.0); Alkaline Phosphatase 56.0 U/L (34-104); Anion Gap 8.0 (3-11); Bilirubin,Total 0.7 mg/dl (0.2-1.0); Blood Urea Nitrogen 35.0 mg/dl (6-23); Calcium 9.0 mg/dl (8.6-10.3); Carbon Dioxide 23.0 mmol/L (21-32); Chloride 108.0 mmol/L (98-107); Creatinine Clr Calc Pharmacy 28.2 ml/min; Globulin 2.8 gm/dl (2.5-4.0); Glucose 137.0 mg/dl (70-99(Fasting)); Magnesium 2.0 mg/dl (1.7-2.4); Potassium 3.5 mmol/L (3.5-5.1); Sodium 139.0 mmol/L (136-145); Total Protein 6.4 gm/dl (6.0-8.3)
--- NOTE | 2025-08-29 04:15 | XRay Report ---
EXAM: XR chest 1V portable CLINICAL HISTORY: Dysrhythmia. TECHNIQUE: An X-ray image of the chest was obtained in AP projection. COMPARISON: 08/27/2025 CT FINDINGS: Pulmonary Parenchyma: Chest leads are identified. Mild opacification is seen in the left lung lower zone/left costophrenic angle. Possible minimal haziness at the right costophrenic angle. No evidence of gross consolidation. No pulmonary nodules are identified. Prominent vessels are seen in both helen. Heart and Mediastinum: Heart size is enlarged. No mediastinal widening or masses. No hilar or mediastinal lymphadenopathy. Bony Thorax: Mild convexity of the thoracic curvature to the right side may be positional or due to rotation. Soft Tissues: Soft tissues overlying the chest wall are unremarkable. A loop recorder is noted. IMPRESSION: 1. Mild opacification is seen in the left lung lower zone/left costophrenic angle, likely due to minimal pleural effusion or thickening, with the possibility of atelectatic changes in the adjacent lung. The prior CT also showed mild left-sided pleural effusion with atelectatic changes. 2. Possible minimal haziness of the right costophrenic angle. Possibility of pleural thickening or a small amount of effusion cannot be excluded. 3. Prominent vessels are seen in both helen, likely due to vascular congestion. There are slightly more prominent left hilar vessels in the current examination. 4. Redemonstration of cardiomegaly without gross change. Electronically signed by Elio Escudero 08-29-2025 04:15 AM
[2025-08-29 04:24] LABS: INR 1.0 (0.9-1.1); Prothrombin Time 10.5 Seconds (9.0-12.0)
[2025-08-29 04:30] LABS: Thyroid Stimulating Hormone 3.042 uIu/ml (0.300-4.500)
[2025-08-29] MEDS: MoRPHine SULFATE 4 MG/ML 1 ML CARP\\VIAL IV STA (05:04)
[2025-08-29] MEDS: SODIUM CHLORIDE 0.9% 500 ML IV ONE ×2 (05:13→06:15)
[2025-08-29] MEDS: STAT IV Infusion **Titration per Protocol STA (05:18)
[2025-08-29] MEDS: MAGNESIUM SULFATE / D5W 1 GM/100 ML BAG IV ONE (05:52)
--- NOTE | 2025-08-29 05:52 | History & Physical Report ---
Date of Service August 29, 2025 Assessment & Plan (1) Atrial fibrillation with rapid ventricular response: (2) Elevated troponin: (3) Sternum pain: Plan The patient is a 89-year-old female with a past medical history including recent admission from 08/26-08/27/2025 for atrial fibrillation with RVR and significant sternal chest wall pain. Upon discharge, she was to have stopped her lisinopril, and started metoprolol tartrate 12.5 mg p.o. twice daily, however, she reports that someone told her not to do that and so she is still on lisinopril and not on the metoprolol tartrate. Significant laboratories in the ED with potassium 3.5, calcium 9.0, troponin 57.4 with follow-up pending. Most recent discharge troponin was 284.8 She will be given while still in the ED the following by me: Klor-Con 40 mill equivalents p.o. x 1, potassium chloride 10 mEq IV rider x 1, magnesium sulfate 1 g IV, normal saline 500 mL bolus, and calcium gluconate [address] also [address] on Lidoderm patch every morning with first dose now. Most recent echocardiogram on 08/27 with ejection fraction 60-65%. Recurrent atrial fibrillation with RVR- Patient was most recently admitted from 08/26-08/27/2025. Upon discharge she was to stop lisinopril, and start metoprolol to tartrate 12.5 mg p.o. twice daily. She reports someone told her not to do that, but discharge notes are clear that she should. She received total 2 L normal saline between EMS, and the ED. For now, will continue diltiazem drip and titrate per protocol. Other options include digoxin IV or amiodarone IV. Will let cardiology decide Potassium is 3.5 on admission. Will give Klor-Con 40 mill equivalents p.o., and potassium chloride 10 mEq IV x 1. Give magnesium sulfate 1 g IV. Give calcium gluconate 1 g IV. Follow serial CBC with differential, renal function panel, magnesium and troponin levels The patient will be admitted to telemetry for serial cardiac enzymes, serial EKG's, cardiac rhythm monitoring Echo on 08/27/2025 with ejection fraction 60-65%. Consult cardiology Sternal pain- Appears to be more chest wall pain, which she reports is severe. While having this pain, patient had EKG ordered by me, which shows no acute changes. She did have a CT scan of the chest on 08/27/2025, which showed no sternal fra cture Started Lidoderm patch every morning, with first patch now She was given morphine 2 and then 4 mg IV by the ED with no improvement in pain After receives sufficient IV fluid hydration, will try a low-dose of Dilaudid 0.25 mg IV every 3 hours as needed for moderate to severe pain, only give if systolic blood pressures greater than or equal to 120 Hypothyroidism- Continue levothyroxine 100 mcg daily. TSH is normal History of Present Illness Chief Complaint: The patient presents to the emergency department with complaint of similar but worse sternal chest wall pain that was one of her complaints during admission from 08/26-08/27/2025. She was found to be in A-fib with RVR by EMS, and was given 1 L of normal saline and route to the ED. She received additional liter of normal saline while in the ED, received Lopressor 5 mg IV Zofran 4 mg IV morphine 4 mg IV after 2 mg IV, NS started on diltiazem drip. The patient continued to report severe chest wall pain, unresponsive to morphine. Her heart rates presently in the 100s, and blood pressure is systolic 110. Primary Care Provider: Farhan Vines MD The patient is a 89-year-old female with a past medical history including recent admission from 08/26-08/27/2025 for atrial fibrillation with RVR and significant sternal chest wall pain. Upon discharge, she was to have stopped her lisinopril, and started metoprolol tartrate 12.5 mg p.o. twice daily, however, she reports that someone told her not to do that and so she is still on lisinopril and not on the metoprolol tartrate. Significant laboratories in the ED with potassium 3.5, calcium 9.0, troponin 57.4 with follow-up pending She will be given while still in the ED the following by me: Klor-Con 40 mill equivalents p.o. x 1, potassium chloride 10 mEq IV rider x 1, magnesium sulfate 1 g IV, normal saline 500 mL bolus, and calcium gluconate [address] also [address] on Lidoderm patch every morning with first dose now. Most recent echocardiogram on 08/27 with ejection fraction 60-65%. Allergies Allergy/AdvReac Type Severity Reaction Status Date / Time fexofenadine AdvReac Intermediate Diarrhea Verified 08/26/25 13:14 [id number] AdvReac Intermediate hip and Verified 08/26/25 13:14 [facility] Home Medications Medication Instructions Recorded Confirmed Type cod liver oil 1 cap PO QAM 07/01/18 08/26/25 History cranberry extract 500 mg tablet 500 mg PO QAM 07/16/21 08/26/25 History cyanocobalamin (vitamin B-12) 1,000 mcg PO QAM 07/16/21 08/26/25 History 1,000 mcg tablet,extended release (Vitamin B-12 ER) magnesium 250 mg tablet 250 mg PO BID 07/16/21 08/26/25 History turmeric root extract 500 mg 500 mg PO QAM 07/16/21 08/26/25 History capsule vitamin B complex 1 tab PO 3XWK 07/16/21 08/26/25 History albuterol sulfate 90 mcg/actuation 1 - 2 puff inhalation Q6H PRN 09/01/23 08/26/25 Rx aerosol inhaler (ProAir HFA) shortness of breath #8.5 grams ascorbate calcium (vitamin C) 500 500 mg PO QAM 01/13/24 08/26/25 History mg tablet Nerve Savior 1 cap PO 1200 08/27/24 08/26/25 History lisinopril 2.5 mg tablet 1.25 mg (1/2 x 2.5 mg) PO BID #90 01/03/25 08/26/25 Rx tabs Juice Plus 4 tab PO QAM 01/17/25 08/26/25 History levothyroxine 100 mcg tablet 100 mcg PO DAILY #90 tabs 03/22/25 08/26/25 Rx ropinirole 0.25 mg tablet 0.25 mg PO .q evening #30 tabs 07/27/25 08/26/25 Rx cholecalciferol (vitamin D3) 100 4,000 unit PO QAM 08/26/25 08/26/25 History mcg (4,000 unit) tablet amoxicillin 500 mg-potassium 1 tab PO BID #14 tabs 08/27/25 Rx clavulanate 125 mg tablet (Augmentin) Past Med/Surg History Problem List (Updated 08/29/25 @ 06:10 by Tavo Zee MD) Sternum pain Elevated troponin (Acute) Atrial fibrillation with rapid ventricular response (Acute) Acute kidney injury Elevated troponin Atrial fibrillation with RVR Laceration of elbow, right (Acute) Elbow pain (Acute) CHI (closed head injury) (Acute) Fall (Acute) Hypertension Syncope and collapse - hx of- prior to loop recorder placement in 02/2022- no subsequent events since that time -follows with Dr. Snider Urge incontinence Chondrocalcinosis S/P eye surgery Lateral epicondylitis, right elbow History of spinal fracture (~08/07/22) Severe L3 burst fracture History of compression fracture of vertebral column (~08/07/22) multiple History of pelvic fracture (02/05/22) from fall Change in bowel function Chronic low back pain Medial epicondylitis of left elbow Skin tear of elbow without complication Optic nerve swelling History of loop recorder Rib pain on left side Diplopia S/P rotator cuff repair Rotator cuff tear, right Neuropathy Bronchiectasis Flank pain Asthma (Acute) Hearing loss (Acute) Osteoporosis (Acute) Vitamin D deficiency (Acute) Renal insufficiency PCP monitoring Hypothyroidism (Chronic) Polymyalgia rheumatica (Chronic) Pre-diabetes (Chronic) monitors Medical History Pre-diabetes Polymyalgia rheumatica Osteoporosis Hypothyroidism History of compression fracture of spine hx--happened after syncopal episode/fall 2021 Asthma inhaler prn History of anemia Olecranon fracture hx COVID-19 hx---resolved Hx of basal cell carcinoma Hx of bronchiectasis follows with Pulmonary/Allergy [facility]- stable at 09/2024 appt Osteoarthritis Solitary pulmonary nodule Lawrence's palsy ~2003 Surgical History History of arthroscopy of right shoulder History of loop recorder Hx of skin graft S/P right knee arthroscopy S/P colonoscopy S/P cataract surgery S/P parathyroidectomy S/P cholecystectomy S/P blepharoplasty S/P appendectomy Family History Mother Myocardial infarction Hypertension Family/Other Thyroid disorder Brother Thyroid disorder Sister Thyroid disorder Other Diabetes Heart disease No family history of adverse response to anesthesia Denies family history of Ovarian cancer Prostate cancer Breast cancer Colorectal cancer Social History Smoking Status: Never smoker Tobacco Type: Cigarettes Age Started Using Tobacco: 19; Age Quit Using Tobacco: 26; packs per day: 1; Second Hand Exposure: No; Do You Dip or Chew Tobacco: No; Hx Alcohol Use: No Hx Substance Use: No Preferred Language: Malaysian Communication Ability: Effective Visual Impairment: No Limitations Hearing Ability: Normal Manager Study Required: No Beliefs That Will Affect Care: None marital status: Current Living Situation: Spouse current occupational status: retired How many Children do You have: 2 How many Children do You have Comment: 1 boy 1 girl Feels Safe at Home: Yes Childhood Exposure to Second-Hand Smoke: No Diet: regular during the past year weight has: remained stable Dental Care, Regularly: Yes Physical Activity Frequency: Daily Seatbelt Use: always Sunscreen Use: Yes Assistive Devices: Walker Review of Systems Review of Systems: The patient denies lower extremity swelling, sore throat, fevers, chills, sweats, nausea, vomiting, diarrhea , constipation, abdominal pain, pelvic pain, blood in urine or stool, dysuria, urinary frequency or urgency, lightheadedness, dizziness, headache, loss of consciousness, rash, focal weakness, numbness or tingling in arms or legs, generalized arthralgias or myalgias, back or neck pain, or night sweats. The review of systems is otherwise negative other than for that already noted above, and at least 10 systems have been reviewed. Physical Exam Physical Exam: The patient is awake, alert and oriented 3, appears overly thin, ecchymoses over right frontal and periorbital area, lying in bed and in intermittent mild to moderate distress secondary to chest wall pain HEENT--PERRL, EOMI, mucous membranes and oropharynx dry. Neck--supple. No JVD. No bruits. Thyroid normal, trachea midline, no sharee opathy. Heart--tachycardic and irregular. No murmurs, rubs or gallops. Lungs--clear bilaterally, no respiratory distress, no accessory muscle use. Abdomen--normal bowel sounds and soft. Nontender. Nondistended, no hernias or masses, no organomegaly. Extremities--No edema. Dermatologic--skin is dry Neurologic--cranial nerves II through XII grossly intact. Rheumatologic-- limited exam Psychiatric--anxious Results & Data Results & Data Vital Signs (Past 12 Hours) Vital Signs Temp Pulse Resp BP Pulse Ox O2 Del Method 08/29/25 05:30 114 H 20 122/77 90 08/29/25 05:00 101 H 26 H 90 08/29/25 04:45 110 H 22 107/57 L 95 08/29/25 04:03 108 H 22 98/63 L 94 08/29/25 03:48 107 H 98/63 L 08/29/25 03:33 125 H 122/86 08/29/25 03:16 122 H 08/29/25 03:00 36.9 C 122 H 14 138/104 H 94 Room Air Laboratory Results Laboratory Results WBC 15.38 K/ul (4.8-10.8) H 08/29/25 03:39 RBC 3.78 M/uL (4.20-5.40) L 08/29/25 03:39 Hgb 11.4 g/dl (12.0-16.0) L 08/29/25 03:39 Hct 35.9 % (37.0-47.0) L 08/29/25 03:39 MCV 95.0 fL (80.0-100.0) 08/29/25 03:39 MCH 30.2 pg (25.0-34.0) 08/29/25 03:39 MCHC 31.8 g/dL (32.0-36.0) L 08/29/25 03:39 RDW Std Deviation 49.6 fL (36.4-46.3) H 08/29/25 03:39 RDW Coeff of Fawad 14.3 % (11.5-14.5) 08/29/25 03:39 Plt Count 353 K/uL (130-400) 08/29/25 03:39 MPV 10.8 fL (9.4-12.4) 08/29/25 03:39 Immature Gran % (Auto) 0.5 % 08/29/25 03:39 Neut % (Auto) 86.5 % 08/29/25 03:39 Lymph % (Auto) 4.1 % 08/29/25 03:39 [place] % (Auto) 8.2 % 08/29/25 03:39 Eos % (Auto) 0.3 % 08/29/25 03:39 Baso % (Auto) 0.4 % 08/29/25 03:39 Neut # (Auto) 13.32 K/uL (1.40-6.50) H 08/29/25 03:39 Lymph # (Auto) 0.63 K/uL (1.20-3.40) L 08/29/25 03:39 [place] # (Auto) 1.26 K/uL (0.11-0.59) H 08/29/25 03:39 Eos # (Auto) 0.04 K/uL (0.00-0.50) 08/29/25 03:39 Baso # (Auto) 0.06 K/uL (0.00-0.20) 08/29/25 03:39 Immature Gran # (Auto) 0.07 K/uL (0.01-0.20) 08/29/25 03:39 PT 10.5 Seconds (9.0-12.0) 08/29/25 03:39 INR 1.0 (0.9-1.1) 08/29/25 03:39 Sodium 139 mmol/L (136-145) 08/29/25 03:39 Potassium 3.5 mmol/L (3.5-5.1) 08/29/25 03:39 Chloride 108 mmol/L (98-107) H 08/29/25 03:39 Carbon Dioxide 23 mmol/L (21-32) 08/29/25 03:39 Anion Gap 8 (3-11) 08/29/25 03:39 BUN 35 mg/dl (6-23) H 08/29/25 03:39 Creatinine 1.35 mg/dl (0.6-1.2) H 08/29/25 03:39 Est Cr Clr Drug Dosing 28.2 ml/min 08/29/25 03:39 eGFR 37.80 08/29/25 03:39 BUN/Creatinine Ratio 25.9 (10-20) H 08/29/25 03:39 Glucose 137 mg/dl (70-99(Fasting)) H 08/29/25 03:39 Calcium 9.0 mg/dl (8.6-10.3) 08/29/25 03:39 Magnesium 2.0 mg/dl (1.7-2.4) 08/29/25 03:39 Total Bilirubin 0.7 mg/dl (0.2-1.0) 08/29/25 03:39 AST 19 U/L (13-39) 08/29/25 03:39 ALT 16 U/L (7-52) 08/29/25 03:39 Alkaline Phosphatase 56 U/L (34-104) 08/29/25 03:39 Troponin I High Sens 57.4 pg/ml (0-14) H* D 08/29/25 03:39 Total Protein 6.4 gm/dl (6.0-8.3) 08/29/25 03:39 Albumin 3.6 gm/dl (3.4-5.0) 08/29/25 03:39 Globulin 2.8 gm/dl (2.5-4.0) 08/29/25 03:39 Albumin/Globulin Ratio 1.3 (0.9-2) 08/29/25 03:39 TSH 3.042 uIu/ml (0.300-4.500) 08/29/25 03:39 Impressions Chest X-Ray 08/29/25 03:01 EXAM: XR chest 1V portable CLINICAL HISTORY: Dysrhythmia. TECHNIQUE: An X-ray image of the chest was obtained in AP projection. COMPARISON: 08/27/2025 CT FINDINGS: Pulmonary Parenchyma: Chest leads are identified. Mild opacification is seen in the left lung lower zone/left costophrenic angle. Possible minimal haziness at the right costophrenic angle. No evidence of gross consolidation. No pulmonary nodules are identified. Prominent vessels are seen in both helen. Heart and Mediastinum: Heart size is enlarged. No mediastinal widening or masses. No hilar or mediastinal lymphadenopathy. Bony Thorax: Mild convexity of the thoracic curvature to the right side may be positional or due to rotation. Soft Tissues: Soft tissues overlying the chest wall are unremarkable. A loop recorder is noted. IMPRESSION: 1. Mild opacification is seen in the left lung lower zone/left costophrenic angle, likely due to minimal pleural effusion or thickening, with the possibility of atelectatic changes in the adjacent lung. The prior CT also showed mild left-sided pleural effusion with atelectatic changes. 2. Possible minimal haziness of the right costophrenic angle. Possibility of pleural thickening or a small amount of effusion cannot be excluded. 3. Prominent vessels are seen in both helen, likely due to vascular congestion. There are slightly more prominent left hilar vessels in the current examination. 4. Redemonstration of cardiomegaly without gross change. Electronically signed by Elio Escudero 08-29-2025 04:15 AM Code Status & VTE Plan Code Status Full code VTE Prophylaxis Plan VTE Prophylaxis will be ordered: Yes PG Care Time/CCT Total # of Minutes Spent Total Time Spent with Patient: Total time spent is greater than 50% in coordination of care (as documented) at patient's floor/unit and/or counseling patient: 42 minutes Coding Level of Care Code 35338 INT INP/OBS CARE 3/75MIN Diagnoses Atrial fibrillation with rapid ventricular response I48.91 Elevated troponin R79.89 Sternum pain R07.89
[2025-08-29] MEDS: POTASSIUM CHLORIDE CRTAB 20 MEQ TABCR PO STA (05:53)
[2025-08-29] MEDS: POTASSIUM CHLORIDE / WTR 10 MEQ/100 ML PLCT IV ONE (05:53)
[2025-08-29] MEDS: LIDOCAINE 5% 1 PATCH TD STA (05:53)
[2025-08-29] MEDS: CALCIUM GLUCONATE 1,000 MG/60 ML BAG IV STA (06:25)
--- NOTE | 2025-08-29 06:46 | Billing Data ---
Date of Service August 29, 2025 Coding Level of Care Code 75955 CRITICAL CARE
[2025-08-29] MEDS: HYDROmorphone INJ 0.5 MG/0.5 ML SYR IV PRN (06:58)
[2025-08-29] MEDS: CHOLECALCIFEROL 25 MCG (1000 UNITS) TAB PO SCH (10:06)
[2025-08-29] MEDS: CYANOCOBALAMIN (B-12) 500 MCG TABLET PO SCH (10:06)
[2025-08-29] MEDS: ACETAMINOPHEN 325 MG TAB PO PRN (10:07)
--- NOTE | 2025-08-29 11:50 | Hospitalist Progress Note ---
Date of Service August 29, 2025 Assessment & Plan (1) Atrial fibrillation with rapid ventricular response: Plan: She converted back to normal sinus rhythm earlier this morning. Diltiazem drip switched to oral diltiazem 30 mg 4 times daily. She never took metoprolol or Eliquis. Telemetry (2) Elevated troponin: Plan: Mild. No acute EKG changes. Chest pain is sternal and probable probably from her recent fall with no definite evidence of acute coronary syndrome (3) Sternum pain: Plan: Probably from underlying contusion from her recent fall. Palpable discomfort. Symptomatic management (4) Primary hypothyroidism: Plan: Stable. Continue current thyroid replacement (5) Hypertension: Plan: Stable. Lisinopril has been switched to diltiazem. Plan Hopeful discharge back to home within the next day or 2 Admission and Anticipated Discharge Date Admission Date: August 29, 2025 Subjective Alert and oriented. No distress. She converted back to normal sinus rhythm this morning. Diltiazem drip with will be discontinued and she will be started on 30 mg diltiazem 4 times daily. Cardiology consultation requested and pending. Most recent cardiac echo done several days ago reveals normal ejection fraction. She is not taking metoprolol or Eliquis at this time. Hypokalemia treated while in the ED Review of Systems 2 Review of Systems: Constitutionalno fever or chills ENTno blurred vision, no double vision, no epistaxis, no sore throat Respiratoryno cough, no wheezing, no shortness of breath Cardiacno palpitations, she has palpable sternal discomfort, no syncope Zeke nausea, vomiting, diarrhea, melena, hematochezia GUno urinary retention, no urinary incontinence, no dysuria, no hematuria Musculoskeletalno joint pain, no muscle tenderness Skin- no rashes, no pruritus. Ecchymoses noted about the right eye Neurono isolated weakness, no paresthesia, no weakness Psychno depression, no anxiety Physical Exam 2 Physical Exam: General-alert and oriented x3, no fever, no chills HEENT-right periorbital ecchymoses noted. Pupils equal and reactive to light, extraocular muscles intact Neck-no lymphadenopathy or thyromegaly, trachea midline Chest-clear to auscultation. No rales, wheezing or rhonchi Cardiac-regular rate and rhythm, normal S1 and S2 Abdomen-normal bowel sounds, no hepatosplenomegaly Extremities-no cyanosis, clubbing, or edema Neuro-cranial nerves II through XII intact, motor and sensory function within normal limits, strength symmetrical, no focal deficits Psych-normal affect, normal mood Results & Data Results & Data Vital Signs (Past 12 Hours) Vital Signs Temp Pulse Pulse Pulse Resp BP BP 08/29/25 11:33 36.5 C 54 L 107/57 L 08/29/25 07:57 36.7 C 111 H 16 137/78 08/29/25 07:35 99 H 19 131/81 08/29/25 07:30 99 H 19 131/81 08/29/25 07:00 109 H 23 141/92 H 08/29/25 06:43 97 H 22 160/101 H 08/29/25 06:30 102 H 22 154/101 H 08/29/25 06:24 102 H 20 08/29/25 06:00 109 H 26 H 135/64 08/29/25 05:54 105 H 26 H 106/69 08/29/25 05:30 114 H 20 122/77 08/29/25 05:00 101 H 26 H 08/29/25 04:45 110 H 22 107/57 L 08/29/25 04:03 108 H 22 98/63 L 08/29/25 03:48 107 H 98/63 L 08/29/25 03:33 125 H 122/86 08/29/25 03:16 122 H 08/29/25 03:00 36.9 C 122 H 14 138/104 H Pulse Ox O2 Del Method O2 Flow Rate 08/29/25 11:33 93 Nasal Cannula 2 08/29/25 07:57 96 Nasal Cannula 2 08/29/25 07:35 95 Nasal Cannula 2 08/29/25 07:30 95 Nasal Cannula 2 08/29/25 07:00 94 Nasal Cannula 2 08/29/25 06:43 95 Nasal Cannula 2 08/29/25 06:30 92 Nasal Cannula 2 08/29/25 06:24 95 Nasal Cannula 2 08/29/25 06:00 89 L 08/29/25 05:54 92 08/29/25 05:30 90 08/29/25 05:00 90 08/29/25 04:45 95 08/29/25 04:03 94 08/29/25 03:48 08/29/25 03:33 08/29/25 03:16 08/29/25 03:00 94 Room Air Laboratory Results 08/29/25 03:39 08/29/25 03:39 PG Care Time/CCT Total # of Minutes Spent Total Time Spent with Patient: Total time spent is greater than 50% in coordination of care (as documented) at patient's floor/unit and/or counseling patient: Coding Level of Care Code 08296 SUB INP/OBS CARE 3/50MIN Diagnoses Atrial fibrillation with rapid ventricular response I48.91 Elevated troponin R79.89 Sternum pain R07.89 Primary hypothyroidism E03.9 Hypertension, unspecified type I10 Hypertension type: unspecified (5) Hypertension Hypertension type: unspecified Qualified Code(s): I10 - Essential (primary) hypertension
[2025-08-29] MEDS: ONDANSETRON INJ 2 MG/ML 2 ML VIAL IV PRN (12:03)
--- NOTE | 2025-08-29 13:54 | Electrocardiogram Report ---
Test Reason : Blood Pressure : */* mmHG Vent. Rate : 107 BPM Atrial Rate : * BPM P-R Int : * ms QRS Dur : 104 ms QT Int : 344 ms P-R-T Axes : * -10 135 degrees QTcB Int : 459 ms Atrial fibrillation with rapid ventricular response Moderate voltage criteria for LVH, may be normal variant Nonspecific ST and T wave abnormality Abnormal ECG When compared with ECG of 29-Aug-2025 03:00, (unconfirmed) No significant change was found Confirmed by Alfonso Beatty ([id number]) on 08/29/2025 1:53:45 PM Referred By: REFERRED SELF Confirmed By: Alfonso Beatty
--- NOTE | 2025-08-29 13:55 | Electrocardiogram Report ---
Test Reason : Blood Pressure : */* mmHG Vent. Rate : 116 BPM Atrial Rate : * BPM P-R Int : * ms QRS Dur : 108 ms QT Int : 342 ms P-R-T Axes : * -13 118 degrees QTcB Int : 475 ms Atrial fibrillation with rapid ventricular response Moderate voltage criteria for LVH, may be normal variant Abnormal ECG When compared with ECG of 26-Aug-2025 16:01, Atrial fibrillation has replaced Sinus rhythm Vent. rate has increased by 58 bpm T wave inversion now evident in Lateral leads Confirmed by Alfonso Beatty ([id number]) on 08/29/2025 1:54:45 PM Referred By: REFERRED SELF Confirmed By: Alfonso Beatty
--- NOTE | 2025-08-29 14:09 | Electrocardiogram Report ---
Test Reason : Blood Pressure : */* mmHG Vent. Rate : 65 BPM Atrial Rate : 65 BPM P-R Int : 84 ms QRS Dur : 96 ms QT Int : 422 ms P-R-T Axes : * -26 -22 degrees QTcB Int : 438 ms Junctional rhythm Moderate voltage criteria for LVH, may be normal variant abnormal EKG Confirmed by Alfonso Beatty ([id number]) on 08/29/2025 2:09:09 PM Referred By: REFERRED SELF Confirmed By: Alfonso Beatty
--- NOTE | 2025-08-29 15:32 | Cardiology Consultation ---
Date of Consultation August 29, 2025 Assessment & Plan (1) Sternum pain: She has some pleuritic pain. Most likely related to her prior injury. She does not specifically remember falling on her chest however. No fracture. (2) Atrial fibrillation with RVR: This is her second documented episode of atrial fibrillation. However, I do not think we have established a good pattern at this point. It does not look like she suffered a significant injury or fracture from her fall. I would still recommend initiating systemic anticoagulation with Eliquis 5 mg twice daily. This could certainly be deferred a couple of days if there is any concerns. She would also likely benefit from low-dose diltiazem. She has some slower heart rates when she is in sinus rhythm, and her blood pressure currently is on the lower side. However, I think we should try some low-dose diltiazem to see if this achieves a reasonable heart rate when she has recurrent episodes of atrial fibrillation. History of Present Illness Reason for Consultation: Atrial fibrillation Requesting Physician: Vaughn Attending Physician: Tavo Zee MD History of Present Illness The patient is an 89-year-old woman with a recent admission for mechanical fall. At the time of her last admission she was noted to be in atrial fibrillation with rapid ventricular response. She was administered some diltiazem and converted to a sinus rhythm. This is a previously undiagnosed arrhythmia. She was not discharged home on anticoagulation over concerns of falling and injury. The patient returned to the emergency room yesterday evening with symptoms of chest discomfort. She states that this has been present since her fall. It makes it very difficult for her to breathe and is pleuritic in nature. She has some breathing difficulty as a result. She is generally not aware of palpitations although did have some sense of a rapid heartbeat at the time of admission. No current dizziness or lightheadedness. At the time of this interview the patient did receive some narcotics and was somewhat somnolent. Allergies Allergy/AdvReac Type Severity Reaction Status Date / Time fexofenadine AdvReac Intermediate Diarrhea Verified 08/26/25 13:14 romosozumab-[id number] AdvReac Intermediate hip and Verified 08/26/25 13:14 [From [facility]] thigh pain Home Medications Medication Instructions Recorded Confirmed Type cod liver oil 1 cap PO QAM 07/01/18 08/29/25 History cranberry extract 500 mg tablet 500 mg PO QAM 07/16/21 08/29/25 History cyanocobalamin (vitamin B-12) 1,000 mcg PO QAM 07/16/21 08/29/25 History 1,000 mcg tablet,extended release (Vitamin B-12 ER) magnesium 250 mg tablet 250 mg PO BID 07/16/21 08/29/25 History turmeric root extract 500 mg 500 mg PO QAM 07/16/21 08/29/25 History capsule vitamin B complex 1 tab PO 3XWK 07/16/21 08/29/25 History albuterol sulfate 90 mcg/actuation 1 - 2 puff inhalation Q6H PRN 09/01/23 08/29/25 Rx aerosol inhaler (ProAir HFA) shortness of breath #8.5 grams ascorbate calcium (vitamin C) 500 500 mg PO QAM 01/13/24 08/29/25 History mg tablet Nerve Savior 1 cap PO 1200 08/27/24 08/29/25 History lisinopril 2.5 mg tablet 1.25 mg (1/2 x 2.5 mg) PO BID #90 01/03/25 08/29/25 Rx tabs Juice Plus 4 tab PO QAM 01/17/25 08/29/25 History levothyroxine 100 mcg tablet 100 mcg PO DAILY #90 tabs 03/22/25 08/29/25 Rx ropinirole 0.25 mg tablet 0.25 mg PO .q evening #30 tabs 07/27/25 08/29/25 Rx cholecalciferol (vitamin D3) 100 4,000 unit PO QAM 08/26/25 08/29/25 History mcg (4,000 unit) tablet amoxicillin 500 mg-potassium 1 tab PO BID #14 tabs 08/27/25 08/29/25 Rx clavulanate 125 mg tablet (Augmentin) Patient History Medical History Pre-diabetes Polymyalgia rheumatica Osteoporosis Hypothyroidism History of compression fracture of spine hx--happened after syncopal episode/fall 2021 Asthma inhaler prn History of anemia Olecranon fracture hx COVID-19 hx---resolved Hx of basal cell carcinoma Hx of bronchiectasis follows with Pulmonary/Allergy [facility]- stable at 09/2024 appt Osteoarthritis Solitary pulmonary nodule Lawrence's palsy ~2003 Surgical History History of arthroscopy of right shoulder History of loop recorder Hx of skin graft S/P right knee arthroscopy S/P colonoscopy S/P cataract surgery S/P parathyroidectomy S/P cholecystectomy S/P blepharoplasty S/P appendectomy Family History Mother Myocardial infarction Hypertension Family/Other Thyroid disorder Brother Thyroid disorder Sister Thyroid disorder Other Diabetes Heart disease No family history of adverse response to anesthesia Denies family history of Ovarian cancer Prostate cancer Breast cancer Colorectal cancer Social History Smoking Status: Former smoker Tobacco Type: Cigarettes Age Started Using Tobacco: 19; Age Quit Using Tobacco: 26; packs per day: 1; Second Hand Exposure: No; Do You Dip or Chew Tobacco: No; Hx Alcohol Use: Yes Alcohol type: wine Alcohol Intake Frequency Comment: SOCIALLY Hx Substance Use: No Preferred Language: Danish Communication Ability: Effective Visual Impairment: No Limitations Hearing Ability: Normal 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 Beliefs That Will Affect Care: None marital status: Current Living Situation: Spouse current occupational status: retired How many Children do You have: 2 How many Children do You have Comment: 1 boy 1 girl Feels Safe at Home: Yes Childhood Exposure to Second-Hand Smoke: No Diet: regular during the past year weight has: remained stable Dental Care, Regularly: Yes Physical Activity Frequency: Daily Seatbelt Use: always Sunscreen Use: Yes Assistive Devices: Cane, Denture - Upper, Denture - Lower, Glasses, Hearing Aid - Bilateral and Walker Review of Systems Review of Systems: Per HPI Physical Exam Physical Exam: Somnolent but arousable. She answered questions appropriately. HEENT: Sclerae are anicteric. Pupils are equal and reactive to light and accommodation. Extraocular movements were intact. Ecchymosis around the right eye. Neuro: Cranial nerves intact Lungs: Reduced pulmonary excursion due to splinting. No rales. No expiratory wheezing. Cardiac: The rhythm was regular. S1 and S2 were normal. There are no murmurs on examination. The PMI was not markedly displaced on palpation. Extremities: Patient has bilateral radial pulses that are equal in intensity. There is no evidence cyanosis or clubbing. There was no evidence of significant peripheral edema bilaterally. Skin: There are no rashes noted on examination today. Results & Data Vital Signs (Past 12 Hours) Vital Signs Temp Pulse Pulse Pulse Resp BP BP 08/29/25 11:33 36.5 C 54 L 107/57 L 08/29/25 09:05 08/29/25 07:57 36.7 C 111 H 16 137/78 08/29/25 07:35 99 H 19 131/81 08/29/25 07:30 99 H 19 131/81 08/29/25 07:00 109 H 23 141/92 H 08/29/25 06:43 97 H 22 160/101 H 08/29/25 06:30 102 H 22 154/101 H 08/29/25 06:24 102 H 20 08/29/25 06:00 109 H 26 H 135/64 08/29/25 05:54 105 H 26 H 106/69 08/29/25 05:30 114 H 20 122/77 08/29/25 05:00 101 H 26 H 08/29/25 04:45 110 H 22 107/57 L 08/29/25 04:03 108 H 22 98/63 L 08/29/25 03:48 107 H 98/63 L 08/29/25 03:33 125 H 122/86 Pulse Ox O2 Del Method O2 Flow Rate 08/29/25 11:33 93 Nasal Cannula 2 08/29/25 09:05 Nasal Cannula 2 08/29/25 07:57 96 Nasal Cannula 2 08/29/25 07:35 95 Nasal Cannula 2 08/29/25 07:30 95 Nasal Cannula 2 08/29/25 07:00 94 Nasal Cannula 2 08/29/25 06:43 95 Nasal Cannula 2 08/29/25 06:30 92 Nasal Cannula 2 08/29/25 06:24 95 Nasal Cannula 2 08/29/25 06:00 89 L 08/29/25 05:54 92 08/29/25 05:30 90 08/29/25 05:00 90 08/29/25 04:45 95 08/29/25 04:03 94 08/29/25 03:48 08/29/25 03:33 Laboratory Results Abnormal Lab Results 08/29/25 08/29/25 08/29/25 03:39 06:15 10:39 WBC 15.38 H RBC 3.78 L Hgb 11.4 L Hct 35.9 L MCV 95.0 MCH 30.2 MCHC 31.8 L RDW Std Deviation 49.6 H RDW Coeff of Fawad 14.3 Plt Count 353 MPV 10.8 Immature Gran % (Auto) 0.5 Neut % (Auto) 86.5 Lymph % (Auto) 4.1 [place] % (Auto) 8.2 Eos % (Auto) 0.3 Baso % (Auto) 0.4 Neut # (Auto) 13.32 H Lymph # (Auto) 0.63 L [place] # (Auto) 1.26 H Eos # (Auto) 0.04 Baso # (Auto) 0.06 Immature Gran # (Auto) 0.07 PT 10.5 INR 1.0 Sodium 139 Potassium 3.5 Chloride 108 H Carbon Dioxide 23 Anion Gap 8 BUN 35 H Creatinine 1.35 H Est Cr Clr Drug Dosing 28.2 eGFR 37.80 BUN/Creatinine Ratio 25.9 H Glucose 137 H Calcium 9.0 Magnesium 2.0 Total Bilirubin 0.7 AST 19 ALT 16 Alkaline Phosphatase 56 Troponin I High Sens 57.4 H* D 61.9 H* 54.5 H* Total Protein 6.4 Albumin 3.6 Globulin 2.8 Albumin/Globulin Ratio 1.3 TSH 3.042 Diagnostic Findings Echocardiogram 08/27/2025: Normal LV systolic function with ejection fraction of 60 to 65%. Mild LVH. Mildly elevated RV systolic pressure at 40 to 50 mmHg. Mildly dilated IVC. PG Care Time/CCT Total # of Minutes Spent Total Time Spent with Patient: Total time spent is greater than 50% in coordination of care (as documented) at patient's floor/unit and/or counseling patient: Coding Level of Care Code 05616 INT INP/OBS CARE 3/75MIN Diagnoses Sternum pain R07.89 Atrial fibrillation with RVR I48.91
[2025-08-29] MEDS ORDERED: ACETAMINOPHEN 325 MG TAB PO PRN (16:27)
[2025-08-29 19:10] VITALS: RESP 18
[2025-08-29] MEDS: ALBUTEROL HFA 8 GM INHALER INH PRN (19:26)
[2025-08-29] MEDS: MAGNESIUM OXIDE 400 MG TAB PO SCH (20:03)
[2025-08-29] MEDS: REMOVE LIDODERM PATCH SCH (20:03)
[2025-08-30] MEDS: MAGNESIUM SULFATE / D5W 1 GM/100 ML BAG IV ONE (01:28)
[2025-08-30 02:23] VITALS: TEMP 98.2
[2025-08-30] MEDS: LEVOTHYROXINE SODIUM 100 MCG TABLET PO SCH (06:08)
[2025-08-30 07:02] VITALS: BP 150/75; O2SAT 93
[2025-08-30 09:19] LABS: Hematocrit (blood only) 33.4 % (37.0-47.0); Hemoglobin 11.2 g/dl (12.0-16.0); Immature Granulocytes # (auto) 0.12 K/uL (0.01-0.20); Immature Granulocytes % (auto) 0.8 %; Mean Corpuscular Hemoglobin 31.6 pg (25.0-34.0); Mean Corpuscular Volume 94.4 fL (80.0-100.0); Platelet Count 339 K/uL (130-400); RDW Standard Deviation 49.5 fL (36.4-46.3); Red Blood Count 3.54 M/uL (4.20-5.40); White Blood Count 14.42 K/ul (4.8-10.8)
[2025-08-30 09:37] LABS: Anion Gap 8.0 (3-11); Blood Urea Nitrogen 30.0 mg/dl (6-23); Calcium 8.8 mg/dl (8.6-10.3); Carbon Dioxide 23.0 mmol/L (21-32); Chloride 102.0 mmol/L (98-107); Creatinine Clr Calc Pharmacy 26.9 ml/min; Glucose 185.0 mg/dl (70-99(Fasting)); Potassium 4.3 mmol/L (3.5-5.1); Sodium 133.0 mmol/L (136-145)
--- NOTE | 2025-08-30 09:43 | Discharge Summary ---
Discharge Summary Date of Service August 30, 2025 Principal Dx & Hospital Course #1 = Principal Diagnosis (1) Atrial fibrillation with rapid ventricular response: She converted back to normal sinus rhythm earlier this morning. She is now on diltiazem CD1 120 mg once a day which has been well-tolerated. Appreciate cardiology consultation and recommendations. She never took metoprolol or Eliquis. Telemetry (2) Elevated troponin: Mild. No acute EKG changes. Chest pain is sternal and appears to be due to her recent fall with no definite evidence of acute coronary syndrome (3) Sternum pain: Probably from underlying contusion from her recent fall. Palpable discomfort. Symptomatic management with as needed Tylenol (4) Primary hypothyroidism: Stable. Continue current thyroid replacement (5) Hypertension: Stable. Lisinopril has been switched to diltiazem. Plan Home today, August 30 Admission HPI Per Admitting Provider The patient is a 89-year-old female with a past medical history including recent admission from 08/26-08/27/2025 for atrial fibrillation with RVR and significant sternal chest wall pain. Upon discharge, she was to have stopped her lisinopril, and started metoprolol tartrate 12.5 mg p.o. twice daily, however, she reports that someone told her not to do that and so she is still on lisinopril and not on the metoprolol tartrate. Significant laboratories in the ED with potassium 3.5, calcium 9.0, troponin 57.4 with follow-up pending She will be given while still in the ED the following by me: Klor-Con 40 mill equivalents p.o. x 1, potassium chloride 10 mEq IV rider x 1, magnesium sulfate 1 g IV, normal saline 500 mL bolus, and calcium gluconate [address] also [address] on Lidoderm patch every morning with first dose now. Most recent echocardiogram on 08/27 with ejection fraction 60-65%. Discharge Exam General-alert and oriented x3, no fever, no chills HEENT-right periorbital ecchymoses noted. Pupils equal and reactive to light, extraocular muscles intact Neck-no lymphadenopathy or thyromegaly, trachea midline Chest-clear to auscultation. No rales, wheezing or rhonchi Cardiac-regular rate and rhythm, normal S1 and S2 Abdomen-normal bowel sounds, no hepatosplenomegaly Extremities-no cyanosis, clubbing, or edema Neuro-cranial nerves II through XII intact, motor and sensory function within normal limits, strength symmetrical, no focal deficits Psych-normal affect, normal mood Discharge Plan Discharge Items Patient Disposition: Home - Self-Care Reason For Visit: JASS BELLO WITH RVR CHEST WALL PAIN Discharge Diagnosis: Atrial fibrillation with rapid ventricular rate, nonanginal sternal chest pain, hypokalemia, acute kidney injury Condition on Discharge: Good Activity: Resume your previous activity Non-emergency contact: Primary Care Provider Call non-emergency contact if: you have any medication questions and your symptoms worsen Follow-up/Referrals: Farhan Vines MD [Primary Care Provider] - Diet: Regular Addtl Attending Provider Instructions: Take diltiazem CD1 120 mg once a day for heart rate and blood pressure control. Lisinopril has been discontinued. Take Tylenol as needed for chest discomfort. See primary care provider soon as possible for follow-up Pending Studies at Discharge: No Stand-Alone Forms: My Minka, Smoking Cessation Medications and DC Order Prescriptions: New diltiazem HCl [Cardizem CD] 120 mg Capsule,Extended Release 24hr 120 mg PO QAM Qty: 30 0RF Continued cod liver oil capsule 1 cap PO QAM Patient Comments: 08/29- otc unable to verify levothyroxine 100 mcg tablet 100 mcg PO DAILY Qty: 90 3RF albuterol sulfate [ProAir HFA] 90 mcg/actuation HFA aerosol inhaler 1 - 2 puff INH Q6H PRN (Reason: shortness of breath) Qty: 8.5 11RF Patient Comments: 08/29- no fill history unable to verify ascorbate calcium (vitamin C) 500 mg tablet 500 mg PO QAM Patient Comments: 08/29- otc unable to verify ropinirole 0.25 mg tablet 0.25 mg PO .q evening Qty: 30 2RF Nerve Savior capsule 1 cap PO 1200 Patient Comments: 08/29- otc unable to verify Prolia 60 mg/mL syringe 60 mg subcut ONCE Qty: 1 0RF Patient Comments: 08/29- no fill history unable to verify vitamin B complex Tablet 1 tab PO 3XWK Patient Comments: 08/29- otc unable to verify magnesium 250 mg Tablet 250 mg PO BID Patient Comments: 08/29- otc unable to verify turmeric root extract 500 mg Capsule 500 mg PO QAM Patient Comments: 08/29- otc unable to verify cranberry extract 500 mg Tablet 500 mg PO QAM Patient Comments: 08/29- otc unable to verify cyanocobalamin (vitamin B-12) [Vitamin B-12] 1,000 mcg Tablet Extended Release 1,000 mcg PO QAM Patient Comments: 08/29- otc unable to verify cholecalciferol (vitamin D3) 100 mcg (4,000 unit) Tablet 4,000 unit PO QAM Patient Comments: 08/29- otc unable to verify amoxicillin-pot clavulanate [Augmentin] 500-125 mg tablet 1 tab PO BID Qty: 14 0RF Rx Instructions: take with food Juice Plus 4 tab PO QAM Patient Comments: 08/29- otc unable to verify Discontinued lisinopril 2.5 mg tablet 1.25 mg PO BID Qty: 90 3RF Hold Instructions: Resume on 08/28/25. Discharge Orders: Discharge Order (Routine); Ordered 08/30/25 Ordered By: Alex Quinn Admission Data Admit Date/Time: 08/29/25 05:52 Attending Provider: Tavo Zee Admit Provider: Tavo Zee Primary Care Provider: Farhan Vines Other Providers: Alfonso Beatty; Tavo Zee Hospital Stay Data Consultations 08/29/25 05:07 Consult Cardiology Routine 08/29/25 05:08 ED Decision to Admit Stat 08/29/25 09:05 Consult Cardiology Routine Pending Results Patient Have Any Pending Studies at Discharge: No Discharge Instructions Given to Patient (Per Discharging Provider) Take diltiazem CD1 120 mg once a day for heart rate and blood pressure control. Lisinopril has been discontinued. Take Tylenol as needed for chest discomfort. See primary care provider soon as possible for follow-up Total Time Total Time Spent Total Time Spent (In Minutes): 45 minutes. Total time spent with discharge included discussion of medication with the patient, preparation of discharge records, discussion with other c onsultants Coding Level of Care Code 85277 INP/OBS DISCH >30 MIN Diagnoses Atrial fibrillation with rapid ventricular response I48.91 Elevated troponin R79.89 Sternum pain R07.89 Primary hypothyroidism E03.9 Hypertension, unspecified type I10 Hypertension type: unspecified
[2025-08-30 10:36] VITALS: PULSE 97
[2025-08-30] MEDS: PNEUMOCOCCAL VACCINE (PCV20) 20-VAL CONJ-DIP CRM/PF 0.5 ML SYR IM ONE (11:15)
--- NOTE | 2025-08-30 11:26 | Cardiology Progress Note ---
Date of Service August 30, 2025 Assessment & Plan (1) Sternum pain: Plan: She has some pleuritic pain. Most likely related to her prior injury. She does not specifically remember falling on her chest however. No fracture. Improved with narcotic analgesics. (2) Atrial fibrillation with RVR: Plan: Started on low-dose diltiazem. She is usually tolerating this well. We can certainly increase the dose in the outpatient setting. In the long run she will benefit from systemic anticoagulation. If there is no concerns about recurrent injury or bleeding this can be started immediately. Apixaban 5 mg twice daily would be our recommendation. Admission and Anticipated Discharge Date Admission Date: August 29, 2025 Subjective This morning the patient had some persistent chest discomfort. Very pleuritic in nature. Difficult to lie flat. Improved with analgesics. Review of Systems Review of Systems: Per HPI Physical Exam Physical Exam: Alert and oriented. She answered all questions appropriately. HEENT: Sclerae are anicteric. Pupils are equal and reactive to light and accommodation. Extraocular movements were intact. Ecchymosis around the right eye. Neuro: Cranial nerves intact Lungs: Normal respiratory effort Cardiac: The rhythm was regular. S1 and S2 were normal. There are no murmurs on examination. The PMI was not markedly displaced on palpation. Extremities: Patient has bilateral radial pulses that are equal in intensity. There is no evidence cyanosis or clubbing. Skin: There are no rashes noted on examination today. Results & Data Vital Signs (Past 12 Hours) Vital Signs Temp Pulse Pulse Resp BP Pulse Ox O2 Del Method 08/30/25 10:32 36.8 C 97 H 69 18 150/75 H 93 08/30/25 10:00 90 Room Air 08/30/25 09:05 Nasal Cannula 08/30/25 07:01 36.8 C 69 18 150/75 H 93 Nasal Cannula 08/30/25 02:22 36.8 C 63 18 140/60 94 Nasal Cannula O2 Flow Rate 08/30/25 10:32 08/30/25 10:00 08/30/25 09:05 2 08/30/25 07:01 2 08/30/25 02:22 Laboratory Results Abnormal Lab Results 08/29/25 08/30/25 10:39 08:53 WBC 14.42 H RBC 3.54 L Hgb 11.2 L Hct 33.4 L MCV 94.4 MCH 31.6 MCHC 33.5 RDW Std Deviation 49.5 H RDW Coeff of Fawad 14.4 Plt Count 339 MPV 10.8 Immature Gran % (Auto) 0.8 Neut % (Auto) 86.5 Lymph % (Auto) 5.5 [place] % (Auto) 6.5 Eos % (Auto) 0.4 Baso % (Auto) 0.3 Neut # (Auto) 12.45 H Lymph # (Auto) 0.80 L [place] # (Auto) 0.94 H Eos # (Auto) 0.06 Baso # (Auto) 0.05 Immature Gran # (Auto) 0.12 Sodium 133 L Potassium 4.3 D Chloride 102 Carbon Dioxide 23 Anion Gap 8 BUN 30 H Creatinine 1.32 H Est Cr Clr Drug Dosing 26.9 eGFR 38.83 BUN/Creatinine Ratio 22.7 H Glucose 185 H Calcium 8.8 Troponin I High Sens 54.5 H* PG Care Time/CCT Total # of Minutes Spent Total Time Spent with Patient: Total time spent is greater than 50% in coordination of care (as documented) at patient's floor/unit and/or counseling patient: Coding Level of Care Code 21281 SUB INP/OBS CARE 2/35MIN Diagnoses Sternum pain R07.89 Atrial fibrillation with RVR I48.91
--- NOTE | 2025-08-30 11:53 | Electrocardiogram Report ---
Test Reason : Blood Pressure : */* mmHG Vent. Rate : 66 BPM Atrial Rate : 66 BPM P-R Int : 192 ms QRS Dur : 98 ms QT Int : 412 ms P-R-T Axes : 45 -14 17 degrees QTcB Int : 431 ms Normal sinus rhythm Moderate voltage criteria for LVH, may be normal variant Borderline ECG When compared with ECG of 29-Aug-2025 09:05, Sinus rhythm has replaced Electronic atrial pacemaker T wave inversion no longer evident in Lateral leads Confirmed by Alfonso Beatty ([id number] on 08/30/2025 11:52:51 AM Referred By: REFERRED SELF Confirmed By: Alfonso Beatty
== END 2025-08-30 11:49 | disposition home or self-care (01) | DRG 310 ==
LOC: SUATTDRO → ED 02:56 → 2S 05:52